=== PATIENT | female | born 1985 | race Caucasian/White ===

== ENCOUNTER → 2018-03-16 11:20 | Outpatient (CLI) | payer MEDICAID, SELFPAY ==
[2018-03-16 14:52] LABS: Chlamydia Trachomatis by PCR Negative (Negative); Neisserai gonorrhoeae by PCR Negative (Negative); Probe Check PASS; Sample Adequacy Control PASS; Specimen Processing Control PASS
== END ==
PROVIDERS: Visit Provider Obstetrics & Gynecology
DX: Z11.3 Encounter for screening for infections with a predominantly sexual mode of transmission (principal)
CPT/HCPCS: 87491; 87591

== ENCOUNTER → 2018-11-08 14:05 | Outpatient (CLI) | payer MEDICAID, SELFPAY ==
[2018-11-08 18:14] LABS: Chlamydia Trachomatis by PCR Negative (Negative); Neisserai gonorrhoeae by PCR Negative (Negative); Probe Check PASS; Sample Adequacy Control PASS; Specimen Processing Control PASS
--- OUTSIDE RECORDS SUMMARY | 2018-12-25 11:05 | XMS RPT_ITS ---
:1985 Author Organization OH[facility] Care Team Providers Name Role Phone KAHLIL RADAMES Attending Unavailable GABBIE MORRISON Referring Unavailable Rosario Bess Attending Unavailable Rosario Bess Attending Unavailable Rosario Bess Attending Unavailable PROBLEMS PROBLEMS DATE TYPE CONDITION / CODE ATTENDING STATUS SOURCE 12/10/2018 Unknown Z11.3 - Encounter Aidan Bess for screening for [facility] infections with a [facility] Repository sexual mode of transmission / Z11.3(ICD-10) PROCEDURES PROCEDURES No Procedure Records FoundRESULTS RESULTS CT/NG [facility] BY PCR Collected: 12/10/2018 Status: F Source: [place] 2:55 PM [facility] REPOSITORY TYPE CODE TESTS RESULT OUT OF RANGE REFERENCE UNITS LAB L8200.2100 Negative Normal Chlam Negative Trac PCR LAB L8200.2200 Negative Normal NG by Negative PCR Performed By: #### [id number] #### Jurgen [facility] [place], [place], [address] CT/NG [facility] BY PCR Collected: 11/08/2018 Status: F Source: [place] 12:13 PM [facility] REPOSITORY TYPE CODE TESTS RESULT OUT OF RANGE REFERENCE UNITS LAB L8200.2100 Negative Normal Chlam Negative Trac PCR LAB L8200.2200 Negative Normal NG by Negative PCR Performed By: #### [id number] #### [facility] [address] [place], [address] CT/NG [facility] BY PCR Collected: 03/16/2018 Status: F Source: [place] 10:45 AM [facility] REPOSITORY TYPE CODE TESTS RESULT OUT OF RANGE REFERENCE UNITS LAB L8200.2100 Negative Normal Chlam Negative Trac PCR LAB L8200.2200 Negative Normal NG by Negative PCR Performed By: #### [id number] #### [facility] [address] [place], [address] PROGRESS Observed: 02/09/2018 Status: COMPLETED Source: [place] 10:23 AM [facility] REPOSITORY HNO ID: [id number] Author: Radames Guillory Service: (none) Author Type: Physician Type: Progress Notes Filed: 02/09/2018 11:41 AM Note Text: [facility] [address], [address] [place], [place] [address] Gabbie Morrison MD [address] [place] [id number] PCP: Gabbie Morrison MD This is a 32 year old year old year old, right handed woman who is here for the evaluation and management of the patient's Headache. CC: Headache HPI: Family history of Headache? yes- mother How old were you when you had the first headache of your entire life? Childhood- once a week Are these headaches similar to your headaches now? yes NOW: Where are you headaches located? Frontal, sometimes one sided (either left or right) What is the quality of the pain? Pressure/throbbing How severe are the headaches on a scale of 1-10? 10/10 Are your headaches worse with activity? No Positional aspect- no How may headaches have you had in the last month? Menstrual related (week before and during menstruation) can have up to 10 headache days during this time Do you have light sensitivity with headaches? yes Do you have sound sensitivity with headaches? yes Do you have nausea with headaches? yes How long do the worst headaches last? 3 days Are headaches side locked? no Do you have any other types of headaches? Tension type headache Sleep: poor- 6 hrs Diet: good Exercise: fair Medical/Psychosocial History she denies history of depression, anxiety. she denies history of abuse. 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 [facility] (Neurosurgery) No aneurysms identified on recent MRA, verified with onsite neuroradiologist Family History: Subarachnoid hemorrhage: Yes, mother, maternal grandmother, and maternal cousin Aneurysms: Yes, mother, maternal grandmother, and maternal cousin Stroke: Yes, maternal grandfather Vascular malformations: None Other neurologic diseases: None Prior Treatments: Triptans: Imitrex and Maxalt (treats 6-8x a month) NSAIDS/Combination Analgesics: Excedrin and ibuprofen (Motrin)- no longer uses OTC for at least a year Anti-HTN: Inderal ( Propranolol), Amlodipine Vit/Supplements: Magnesium Propranolol/Imitrex worked the best thus far Current Medications: Current Outpatient Prescriptions: famotidine (PEPCID) 40 mg tablet Take 40 mg by mouth once daily. Disp: Rfl: 11 rizatriptan (MAXALT FOOD SERVICE MANAGER) 10 mg disintegrating tablet DISSOLVE 1 TABLET ON TOP OF TONGUE NEEDED FOR MIGRAINE MAY REPEAT IN 2 HOURS IF NEEDED Disp: Rfl: 3 fluconazole (DIFLUCAN) 150 mg tablet TAKE ONE TAB BY MOUTH ONCE Disp: Rfl: 0 Levocetirizine 5 mg tablet TAKE 1 TABLET BY MOUTH EVERY DAY IN THE EVENING Disp: Rfl: 11 magnesium oxide (MAG-OX) 400 mg tablet Take 1 tablet by mouth once daily. Disp: Rfl: 11 rizatriptan (MAXALT) 10 mg tablet Take 10 mg by mouth as needed. May repeat in 2 hours if needed Disp: Rfl: Norethindrn A-E Estradiol-Iron (BLISOVI 24 FE) 1 mg-20 mcg (24)/75 mg (4) tab Take 1 tablet by mouth once daily. Disp: Rfl: amLODIPine (NORVASC) 5 mg tablet Take 5 mg by mouth once daily. Disp: Rfl: propranolol ER (INDERAL LA) 60 mg 24 hr capsule TAKE ONE CAPSULE BY MOUTH EVERY DAY Disp: 30 capsule Rfl: 2 SUMAtriptan (IMITREX) 50 mg tablet Take 1 tablet by mouth as needed. Disp: 6 tablet Rfl: 1 hydrocortisone (HYTONE) 2.5 % lotion Apply to affected area(s) of irritated dermatitis rash or postinflam red discolorations selectively once to twice daily as needed and tolerated on face and/or neck, but AVOID eyes/eyelids. Disp: 60 mL Rfl: 3 Etonogestrel-Ethinyl Estradiol (NUVARING) 0.12-0.015 mg/24 hr vaginal ring Use 1 Each vaginally as directed. Insert vaginally and leave in place for 3 consecutive weeks, then remove for 1 week. Disp: Rfl: 0 Benzoyl Peroxide (BENZAC AC WASH) 5 % external wash Cleanse with 5 minute lather of entire acne areas of face, neck, shoulders, back and chest: once to twice daily or alternate days as directed and tolerated. Disp: 226 g Rfl: 6 Clindamycin-Benzoyl Peroxide (DUAC) 1.2 %(1 % base) -5 % GlER Apply thin layer to entire acne area(s) of face every other day (qoday) up to once per day (qday) up to twice per day (bid) as needed for tx of acne as tolerated and directed. Disp: 45 g Rfl: 3 No current facility-administered medications for this visit. . Allergies: ALLERGIES Allergen Reactions - Morphine Itching Family History: Migraine or other headaches in the family: Yes Mother Past Medical History: PAST MEDICAL HISTORY Diagnosis Date - Migraine Past Surgical History PAST SURGICAL HISTORY Procedure Laterality Date - CHG DELIVERY 03/17/2011 - EXCISION OF GANGLION, WRIST 05/13/10 Jurgen Sinclair . Social History: Social History Substance Use Topics - Smoking status: Never Smoker - Smokeless tobacco: Never Used - Alcohol use Yes Comment: rarely ROS: REVIEW OF SYSTEMS GENERAL: No weight loss, malaise or fevers HEENT: Negative for frequent or significant headaches, No changes in hearing or vision, no nose bleeds or other nasal problems NECK: Positive for stiffness, most likely sleep related RESPIRATORY: Negative for cough, hemoptysis, wheezing or shortness of breath CARDIOVASCULAR: Negative for chest pain, leg swelling or palpitations GI: No nausea, vomiting, or diarrhea : Positive for dysuria burning at times- no UTI found MUSCULOSKELETAL: Negative for joint pain or swelling, back pain or muscle pain PSYCH: sleep fragmented ENDOCRINE: Negative for cold or heat intolerance, polyuria, polydipsia and goiter NEURO: No history of syncope, paralysis, seizures or tremors Physical Exam: Vital Signs: BP 130/77 Pulse 66 Ht 157.5 cm (5' 2) Wt 81.6 kg (180 lb) BMI 32.92 kg/m2 General appearance: Obese, well appearing, alert, in no acute distress Neurological: Mental Status: Alert. Affect is normal. Motor: Grossly normal Coordination: Grossly intact Gait: Normal gait Impression: This is Laura Whittington, a 32 year old female with a history of episodic migraine, with disability who presents for management and treatment. Variable diet, poor sleep contributing to headaches. Her examination is essentially normal at this visit. IHS diagnosis based on current history and exam: Migraine: 1.1 Migraine without aura PLAN: HEADACHE EVALUATION LABS: Many labs have been done looking for underlying reasons of headache and are not necessary at this time. IMAGING/MRI: Another part of evaluating chronic headache may include imaging. Currently, no need. However, in the future if indicated, this may be ordered. HEADACHE MANAGEMENT: You are the primary guardian of your health and headache. Keep track of all medications: This includes the reason for use, side effects and benefits. MEDICATION TREATMENT: Headache management is broken down into 2 parts: Prevention ~ medication used to reduce frequency and intensity of headache. These are taken on a daily basis whether you have a headache or not. Start Topamax 25 mg daily, then increase every 1 weeks by 25 mg to a goal of 100 mg daily. Common side effects are tingling, weight loss (decreased appetite), etc. It may cause slowness of thinking for 1-4 days when starting it or increasing the dose. If the slowness of thinking is persistent, then reduce the dose to a level that does not cause persistent slowness in thinking. This medicine helps prevent headaches and reduce their severity. Rescue ~ medication to take when you get a headache or other symptoms such as nausea, etc. Imitrex (sumatriptan) 100 mg as needed for severe headache, may repeat after 2 hours once as tolerated. Do not take more than three days per week. This may cause nausea, sleepiness, Take with nausea medication. May take with Ibuprofen or Aleve, Tylenol, and/or Benadryl. Do not take Ibuprofen/Tylenol/Aleve more than 3 days per week due to rebound headache. NON-MEDICATION TREATMENT: Migraine Lifestyle: We discussed preventative lifestyle changes for prevention of migraine such as a healthy diet, not skipping meals, moderate aerobic exercise (intensity level high enough to raise heart rate and break a sweat, able to talk but not sing the words to a song) 30 minutes per day 3-5 days per week times per week as tolerated, good sleep hygiene, staying well-hydrated with 3-4 Liters (96-128 ounces) of water per day, and identification of migraine triggers. Yoga, massage, and acupuncture are also beneficial for migraine. Total time in minutes spent with patient including headache education/counselling/coordinating care with the patient and /or family 60 minutes. More than 50 % of time spent in counseling and answering specific patient questions. Savanna Wilks RN I have supervised and personally performed the mclaughlin components of the above-noted interview and physical examination. I agree with the note and was personally involved in development of this patient's assessment, plan of management, and follow-up. Radames Guillory MD [facility] CNOV Observed: 02/09/2018 Status: COMPLETED Source: [place] 9:40 AM [facility] REPOSITORY Office Visit (ANNIA) LAURA WHITTINGTON ([id number]) 1985 F Date Time Provider Department 02/09/18 9:40 AM RADAMES GUILLORY During your visit today, we recorded the following information about you: Pulse Blood pressure Weight Height 66/minute 130/77 81.6 kg 1.575 m Radames Guillory MD 02/09/2018 11:41 AM Signed [facility] [address], [address] [place], [place] [address] Gabbie Morrison MD [address] [place] [id number] PCP: Gabbie Morrison MD This is a 32 year old year old year old, right handed woman who is here for the evaluation and management of the patient's Headache. CC: Headache HPI: Family history of Headache? yes- mother How old were you when you had the first headache of your entire life? Childhood- once a week Are these headaches similar to your headaches now? yes NOW: Where are you headaches located? Frontal, sometimes one sided (either left or right) What is the quality of the pain? Pressure/throbbing How severe are the headaches on a scale of 1-10? 10/10 Are your headaches worse with activity? No Positional aspect- no How may headaches have you had in the last month? Menstrual related (week before and during menstruation) can have up to 10 headache days during this time Do you have light sensitivity with headaches? yes Do you have sound sensitivity with headaches? yes Do you have nausea with headaches? yes How long do the worst headaches last? 3 days Are headaches side locked? no Do you have any other types of headaches? Tension type headache Sleep: poor- 6 hrs Diet: good Exercise: fair Medical/Psychosocial History she denies history of depression, anxiety. she denies history of abuse. 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 [facility] (Neurosurgery) No aneurysms identified on recent MRA, verified with onsite neuroradiologist Family History: Subarachnoid hemorrhage: Yes, mother, maternal grandmother, and maternal cousin Aneurysms: Yes, mother, maternal grandmother, and maternal cousin Stroke: Yes, maternal grandfather Vascular malformations: None Other neurologic diseases: None Prior Treatments: Triptans: Imitrex and Maxalt (treats 6-8x a month) NSAIDS/Combination Analgesics: Excedrin and ibuprofen (Motrin)- no longer uses OTC for at least a year Anti-HTN: Inderal ( Propranolol), Amlodipine Vit/Supplements: Magnesium Propranolol/Imitrex worked the best thus far Current Medications: Current Outpatient Prescriptions: famotidine (PEPCID) 40 mg tablet Take 40 mg by mouth once daily. Disp: Rfl: 11 rizatriptan (MAXALT FOOD SERVICE MANAGER) 10 mg disintegrating tablet DISSOLVE 1 TABLET ON TOP OF TONGUE NEEDED FOR MIGRAINE MAY REPEAT IN 2 HOURS IF NEEDED Disp: Rfl: 3 fluconazole (DIFLUCAN) 150 mg tablet TAKE ONE TAB BY MOUTH ONCE Disp: Rfl: 0 Levocetirizine 5 mg tablet TAKE 1 TABLET BY MOUTH EVERY DAY IN THE EVENING Disp: Rfl: 11 magnesium oxide (MAG-OX) 400 mg tablet Take 1 tablet by mouth once daily. Disp: Rfl: 11 rizatriptan (MAXALT) 10 mg tablet Take 10 mg by mouth as needed. May repeat in 2 hours if needed Disp: Rfl: Norethindrn A-E Estradiol-Iron (BLISOVI 24 FE) 1 mg-20 mcg (24)/75 mg (4) tab Take 1 tablet by mouth once daily. Disp: Rfl: amLODIPine (NORVASC) 5 mg tablet Take 5 mg by mouth once daily. Disp: Rfl: propranolol ER (INDERAL LA) 60 mg 24 hr capsule TAKE ONE CAPSULE BY MOUTH EVERY DAY Disp: 30 capsule Rfl: 2 SUMAtriptan (IMITREX) 50 mg tablet Take 1 tablet by mouth as needed. Disp: 6 tablet Rfl: 1 hydrocortisone (HYTONE) 2.5 % lotion Apply to affected area(s) of irritated dermatitis rash or postinflam red discolorations selectively once to twice daily as needed and tolerated on face and/or neck, but AVOID eyes/eyelids. Disp: 60 mL Rfl: 3 Etonogestrel-Ethinyl Estradiol (NUVARING) 0.12-0.015 mg/24 hr vaginal ring Use 1 Each vaginally as directed. Insert vaginally and leave in place for 3 consecutive weeks, then remove for 1 week. Disp: Rfl: 0 Benzoyl Peroxide (BENZAC AC WASH) 5 % external wash Cleanse with 5 minute lather of entire acne areas of face, neck, shoulders, back and chest: once to twice daily or alternate days as directed and tolerated. Disp: 226 g Rfl: 6 Clindamycin-Benzoyl Peroxide (DUAC) 1.2 %(1 % base) -5 % GlER Apply thin layer to entire acne area(s) of face every other day (qoday) up to once per day (qday) up to twice per day (bid) as needed for tx of acne as tolerated and directed. Disp: 45 g Rfl: 3 No current facility-administered medications for this visit. . Allergies: ALLERGIES Allergen Reactions - Morphine Itching Family History: Migraine or other headaches in the family: Yes Mother Past Medical History: PAST MEDICAL HISTORY Diagnosis Date - Migraine Past Surgical History PAST SURGICAL HISTORY Procedure Laterality Date - CHG DELIVERY 03/17/2011 - EXCISION OF GANGLION, WRIST 05/13/10 Jurgen Sinclair . Social History: Social History Substance Use Topics - Smoking status: Never Smoker - Smokeless tobacco: Never Used - Alcohol use Yes Comment: rarely ROS: REVIEW OF SYSTEMS GENERAL: No weight loss, malaise or fevers HEENT: Negative for frequent or significant headaches, No changes in hearing or vision, no nose bleeds or other nasal problems NECK: Positive for stiffness, most likely sleep related RESPIRATORY: Negative for cough, hemoptysis, wheezing or shortness of breath CARDIOVASCULAR: Negative for chest pain, leg swelling or palpitations GI: No nausea, vomiting, or diarrhea : Positive for dysuria burning at times- no UTI found MUSCULOSKELETAL: Negative for joint pain or swelling, back pain or muscle pain PSYCH: sleep fragmented ENDOCRINE: Negative for cold or heat intolerance, polyuria, polydipsia and goiter NEURO: No history of syncope, paralysis, seizures or tremors Physical Exam: Vital Signs: BP 130/77 Pulse 66 Ht 157.5 cm (5' 2ANDquot;) Wt 81.6 kg (180 lb) BMI 32.92 kg/m2 General appearance: Obese, well appearing, alert, in no acute distress Neurological: Mental Status: Alert. Affect is normal. Motor: Grossly normal Coordination: Grossly intact Gait: Normal gait Impression: This is Laura Whittington, a 32 year old female with a history of episodic migraine, with disability who presents for management and treatment. Variable diet, poor sleep contributing to headaches. Her examination is essentially normal at this visit. IHS diagnosis based on current history and exam: Migraine: 1.1 Migraine without aura PLAN: HEADACHE EVALUATION LABS: Many labs have been done looking for underlying reasons of headache and are not necessary at this time. IMAGING/MRI: Another part of evaluating chronic headache may include imaging. Currently, no need. However, in the future if indicated, this may be ordered. HEADACHE MANAGEMENT: You are the primary guardian of your health and headache. Keep track of all medications: This includes the reason for use, side effects and benefits. MEDICATION TREATMENT: Headache management is broken down into 2 parts: Prevention ~ medication used to reduce frequency and intensity of headache. These are taken on a daily basis whether you have a headache or not. Start Topamax 25 mg daily, then increase every 1 weeks by 25 mg to a goal of 100 mg daily. Common side effects are tingling, weight loss (decreased appetite), etc. It may cause slowness of thinking for 1-4 days when starting it or increasing the dose. If the slowness of thinking is persistent, then reduce the dose to a level that does not cause persistent slowness in thinking. This medicine helps prevent headaches and reduce their severity. Rescue ~ medication to take when you get a headache or other symptoms such as nausea, etc. Imitrex (sumatriptan) 100 mg as needed for severe headache, may repeat after 2 hours once as tolerated. Do not take more than three days per week. This may cause nausea, sleepiness, Take with nausea medication. May take with Ibuprofen or Aleve, Tylenol, and/or Benadryl. Do not take Ibuprofen/Tylenol/Aleve more than 3 days per week due to rebound headache. NON-MEDICATION TREATMENT: Migraine Lifestyle: We discussed preventative lifestyle changes for prevention of migraine such as a healthy diet, not skipping meals, moderate aerobic exercise (intensity level high enough to raise heart rate and break a sweat, able to talk but not sing the words to a song) 30 minutes per day 3-5 days per week times per week as tolerated, good sleep hygiene, staying well-hydrated with 3-4 Liters (96-128 ounces) of water per day, and identification of migraine triggers. Yoga, massage, and acupuncture are also beneficial for migraine. Total time in minutes spent with patient including headache education/counselling/coordinating care with the patient and /or family 60 minutes. More than 50 % of time spent in counseling and answering specific patient questions. Savanna Wilks RN I have supervised and personally performed the mclaughlin components of the above-noted interview and physical examination. I agree with the note and was personally involved in development of this patient's assessment, plan of management, and follow-up. Radames Guillory MD [facility] Radames Guillory MD 02/09/2018 11:31 AM Signed PLAN: HEADACHE EVALUATION LABS: Many labs have been done looking for underlying reasons of headache and are not necessary at this time. IMAGING/MRI: Another part of evaluating chronic headache may include imaging. Currently, no need. However, in the future if indicated, this may be ordered. HEADACHE MANAGEMENT: You are the primary guardian of your health and headache. Keep track of all medications: This includes the reason for use, side effects and benefits. MEDICATION TREATMENT: Headache management is broken down into 2 parts: Prevention ~ medication used to reduce frequency and intensity of headache. These are taken on a daily basis whether you have a headache or not. Start Topamax 25 mg daily, then increase every 1 weeks by 25 mg to a goal of 100 mg daily. Common side effects are tingling, weight loss (decreased appetite), etc. It may cause slowness of thinking for 1-4 days when starting it or increasing the dose. If the slowness of thinking is persistent, then reduce the dose to a level that does not cause persistent slowness in thinking. This medicine helps prevent headaches and reduce their severity. Rescue ~ medication to take when you get a headache or other symptoms such as nausea, etc. Imitrex (sumatriptan) 100 mg as needed for severe headache, may repeat after 2 hours once as tolerated. Do not take more than three days per week. This may cause nausea, sleepiness, Take with nausea medication. May take with Ibuprofen or Aleve, Tylenol, and/or Benadryl. Do not take Ibuprofen/Tylenol/Aleve more than 3 days per week due to rebound headache. NON-MEDICATION TREATMENT: Exercise is a critical part of headache prevention. Goal is to get 20-30 minutes of mild aerobic exercise such as walking, swimming, or yoga, every day. Exercise should be treated like a medication, and thus implemented daily. For the first few weeks exercise may make headaches worse, but it is important to continue in order to get the intermediate accountant preventive benefits. If needed, start with 5 minute intervals every hour while awake. Simple and sustainable behavior changes are longer lasting. Make a plan and commit. Flexibility and core are essential as well: Yoga DVD's are inexpensive and you can do this at home. AM Yoga with Eris Ann. ANDamp; Restorative Yoga Practice: Gentle Beginners by Kimbelry Henley are a few to consider. Mindful Relaxation: Hourly chime on your smart phone or desktop/computer to help reset posture and breathing. Remember to pull your shoulder blades together and hold for 5 seconds. Repeat 5 times. Http://[employer] is a free website that provides teaching videos on relaxation. Also, there are many apps that can be downloaded for ?mindful? relaxation. An marsha called YOGA NIDRA will help walk you through mindfulness. DIET: Frequent meals with protein 5-10 gm every 3 hours and carbohydrate will help with keeping blood sugar and energy/ fuel supply at appropriate levels. (Example: 5 grams of protein: 1 cheese stick, 20 almonds, 1 hard boiled egg. 1 ounce beef jerky is 10 grams. There are 14 grams of protein in 1/2 cup cottage cheese and so on.) HYDRATION: A minimum of 72-96 ounces of water and or non-carbonated/caffeinated beverage daily. SLEEP HYGIENE: 8 hours in bed overnight. No other activity in bed except sleep and sex. No daytime napping. Avoid large meals late in evening. CAFFEINE is a headache trigger (as well as a short term treatment) - try to even out the quantity in the day and then slowly but progressively reduce - use decaffeinated coffee/tea or soda as substitute. Max 12 oz daily. If on larger quantity; recommended taper is 4 ounces every 4 days to reduce risk of withdrawal headache. DIARY/TRIGGERS: In order to track effectiveness of treatment, a diary is an essential part of your plan of care. Identification of triggers is also mclaughlin in reduction of frequency and intensity of headache pain. Many electronic apps are available for smart phones and tablets. Example of diary below. THERACANE: is a helpful tool for pain and muscle tenderness. It can be purchased online (NutraMed, [employer]). It may help to use an Ice Gel pack to local spot for 5 minutes, followed by gentle pressure with theracane. Follow-up with Warm/Hot Moist towel. Cover with dry towel and stretch. PHOTOPHOBIA/Light Sensitivity: Photophobia treatment involves a balance between desensitization and reduction in overly strong input. Use dark polarized glasses outside, but not inside. Avoid bright or fluorescent light, but do not dim environment to the point that going into a normally lit room hurts. Consider FL-41 tint lenses, which reduce the most irritating wavelengths without blocking too much light. These can be obtained at [facility] or [employer] Examples of... Psychologic Factor: ? Emotional/Upset family or friends ? Emotional/Upset occupation ? Business reversal/success ? Anticipation anxiety ? Crisis-serious ? Post-crisis period ? New job/position Physical Factor: ? Vacation Day ? Weekend ? Strenuous Exercise ? High Altitude Location ? New Move ? Menstrual Day ? Physical Illness ? Oversleep/Not enough sleep ? Weather Food: ? Ripened Cheese ? Chocolate ? Fermented foods ? Nuts/Peanut Butter ? Onions ? Sprague Fruits ? Pork ? Nutrasweet ? Vinegar ? Baked Yeast/Bread ? MSG ? Bananas ? Sausage Referring Provider: GABBIE MORRISON [[id number]] Allergies As of Date: 02/09/2018 Noted Allergy Reaction MORPHINE 02/06/2017 9 - Itching Date Reviewed: 02/06/2017 Reviewed by: Annie Kidd Ma - Fully Assessed Reason for Visit: New Patient [172] Primary Visit Diagnosis:Migraine without aura and without status migrainosus, not intractable [G43.009] Order(s):SUMAtriptan (IMITREX) 100 mg tabletTake 1 tablet by mouth as needed. START AT ONSET OF HEADACHE. MAY REPEAT DOSE AFTER 2 HOURS.Disp: 12 tabletRfl: 3 topiramate (TOPAMAX) 25 mg tabletWk1: 25 mg qhs (1 tab), wk2: 50 mg qhs (2 tab), wk3: 75 mg qhs (3 tab), wk4 100 mg qhs (4 tabs)Disp: 70 tabletRfl: 0 Prescriptions as of 02/09/2018 Sig: FAMOTIDINE 40 MG TABLET Take 40 mg by mouth once herman* RIZATRIPTAN 10 MG DISINTEGRAT* DISSOLVE 1 TABLET ON TOP OF T* LEVOCETIRIZINE 5 MG TABLET TAKE 1 TABLET BY MOUTH EVERY * SUMATRIPTAN 100 MG TABLET Take 1 tablet by mouth as nee* TOPIRAMATE 25 MG TABLET Wk1: 25 mg qhs (1 tab), wk2: * RIZATRIPTAN 10 MG TABLET Take 10 mg by mouth as needed* NORETHINDRONE 1 MG-ETHINYL ES* Take 1 tablet by mouth once d* Medication notes this encounter FAMOTIDINE 40 MG TABLET >> Linda Steen Ma 02/09/2018 10:17 AM >> LINDA STEEN MA MonFeb 09, 2018 10:17 AM Received from: External Pharmacy Received Sig: TAKE 1 TABLET BY MOUTH EVERY DAY RIZATRIPTAN 10 MG DISINTEGRATING TABLET >> Linda Steen Ma 02/09/2018 10:17 AM >> LINDA STEEN MA MonFeb 09, 2018 10:17 AM Received from: External Pharmacy LEVOCETIRIZINE 5 MG TABLET >> Linda Steen Ma 02/09/2018 10:17 AM >> ALVARO POST LINDA MonFeb 09, 2018 10:17 AM Received from: External Pharmacy >> Linda Steen Ma 02/09/2018 10:19 AM >> LINDA STEEN MA MonFeb 09, 2018 10:19 AM Not taking FLUCONAZOLE 150 MG TABLET >> Linda Steen Ma 02/09/2018 10:17 AM >> ALVARO POST LINDA MonFeb 09, 2018 10:17 AM Received from: External Pharmacy >> Linda Steen Ma 02/09/2018 10:18 AM >> LINDA STEEN MA MonFeb 09, 2018 10:18 AM Not taking MAGNESIUM OXIDE 400 MG TABLET >> Linda Steen Ma 02/09/2018 10:17 AM >> LINDA STEEN MA MonFeb 09, 2018 10:17 AM Received from: External Pharmacy Received Sig: TAKE 1 TABLET BY MOUTH EVERY DAY >> Linda Steen Ma 02/09/2018 10:18 AM >> LINDA STEEN MA MonFeb 09, 2018 10:18 AM Not taking AMLODIPINE 5 MG TABLET >> Linda Steen Ma 02/09/2018 10:17 AM >> LINDA STEEN MA MonFeb 09, 2018 10:17 AM Not taking Problem List As Of Date 02/09/2018 Noted Resolved Migraine [G43.909] INVALID FOR* More... Contraception [Z30.9] INVALID FOR* Acne Vulgaris: Inflammatory Grade III: Face [L7*INVALID FOR* Postinflammatory skin changes [R23.4] INVALID FOR* Acne Scars [L90.5] INVALID FOR* Irritant dermatitis (potential from acne meds o*INVALID FOR* Antibiotic-induced yeast infection [B37.9, T36.*INVALID FOR* Yeast infection of the vagina [B37.3] INVALID FOR* Other instructions from your clinician: PLAN: HEADACHE EVALUATION LABS: Many labs have been done looking for underlying reasons of headache and are not necessary at this time. IMAGING/MRI: Another part of evaluating chronic headache may include imaging. Currently, no need. However, in the future if indicated, this may be ordered. HEADACHE MANAGEMENT: You are the primary guardian of your health and headache. Keep track of all medications: This includes the reason for use, side effects and benefits. MEDICATION TREATMENT: Headache management is broken down into 2 parts: Prevention ~ medication used to reduce frequency and intensity of headache. These are taken on a daily basis whether you have a headache or not. Start Topamax 25 mg daily, then increase every 1 weeks by 25 mg to a goal of 100 mg daily. Common side effects are tingling, weight loss (decreased appetite), etc. It may cause slowness of thinking for 1-4 days when starting it or increasing the dose. If the slowness of thinking is persistent, then reduce the dose to a level that does not cause persistent slowness in thinking. This medicine helps prevent headaches and reduce their severity. Rescue ~ medication to take when you get a headache or other symptoms such as nausea, etc. Imitrex (sumatriptan) 100 mg as needed for severe headache, may repeat after 2 hours once as tolerated. Do not take more than three days per week. This may cause nausea, sleepiness, Take with nausea medication. May take with Ibuprofen or Aleve, Tylenol, and/or Benadryl. Do not take Ibuprofen/Tylenol/Aleve more than 3 days per week due to rebound headache. NON-MEDICATION TREATMENT: Exercise is a critical part of headache prevention. Goal is to get 20-30 minutes of mild aerobic exercise such as walking, swimming, or yoga, every day. Exercise should be treated like a medication, and thus implemented daily. For the first few weeks exercise may make headaches worse, but it is important to continue in order to get the fdc preventive benefits. If needed, start with 5 minute intervals every hour while awake. Simple and sustainable behavior changes are longer lasting. Make a plan and commit. Flexibility and core are essential as well: Yoga DVD's are inexpensive and you can do this at home. AM Yoga with Eris Ann. AND Restorative Yoga Practice: Gentle Beginners by Kimberly Henley are a few to consider. Mindful Relaxation: Hourly chime on your smart phone or desktop/computer to help reset posture and breathing. Remember to pull your shoulder blades together and hold for 5 seconds. Repeat 5 times. Http://[employer] is a free website that provides teaching videos on relaxation. Also, there are many apps that can be downloaded for ?mindful? relaxation. An marsha called [employer] will help walk you through mindfulness. DIET: Frequent meals with protein 5-10 gm every 3 hours and carbohydrate will help with keeping blood sugar and energy/ fuel supply at appropriate levels. (Example: 5 grams of protein: 1 cheese stick, 20 almonds, 1 hard boiled egg. 1 ounce beef jerky is 10 grams. There are 14 grams of protein in 1/2 cup cottage cheese and so on.) HYDRATION: A minimum of 72-96 ounces of water and or non-carbonated/caffeinated beverage daily. SLEEP HYGIENE: 8 hours in bed overnight. No other activity in bed except sleep and sex. No daytime napping. Avoid large meals late in evening. CAFFEINE is a headache trigger (as well as a short term treatment) - try to even out the quantity in the day and then slowly but progressively reduce - use decaffeinated coffee/tea or soda as substitute. Max 12 oz daily. If on larger quantity; recommended taper is 4 ounces every 4 days to reduce risk of withdrawal headache. DIARY/TRIGGERS: In order to track effectiveness of treatment, a diary is an essential part of your plan of care. Identification of triggers is also mclaughlin in reduction of frequency and intensity of headache pain. Many electronic apps are available for smart phones and tablets. Example of diary below. THERACANE: is a helpful tool for pain and muscle tenderness. It can be purchased online (NutraMed, etc). It may help to use an Ice Gel pack to local spot for 5 minutes, followed by gentle pressure with theracane. Follow-up with Warm/Hot Moist towel. Cover with dry towel and stretch. PHOTOPHOBIA/Light Sensitivity: Photophobia treatment involves a balance between desensitization and reduction in overly strong input. Use dark polarized glasses outside, but not inside. Avoid bright or fluorescent light, but do not dim environment to the point that going into a normally lit room hurts. Consider FL-41 tint lenses, which reduce the most irritating wavelengths without blocking too much light. These can be obtained at [employer] or [employer] Examples of... Psychologic Factor: ? Emotional/Upset family or friends ? Emotional/Upset occupation ? Business reversal/success ? Anticipation anxiety ? Crisis-serious ? Post-crisis period ? New job/position Physical Factor: ? Vacation Day ? Weekend ? Strenuous Exercise ? High Altitude Location ? New Move ? Menstrual Day ? Physical Illness ? Oversleep/Not enough sleep ? Weather Food: ? Ripened Cheese ? Chocolate ? Fermented foods ? Nuts/Peanut Butter ? Onions ? Sprague Fruits ? Pork ? Nutrasweet ? Vinegar ? Baked Yeast/Bread ? MSG ? Bananas ? Sausage Prescriptions ordered this encounter Disp Refills Start End SUMATRIPTAN 100 MG TABLET 12 t* 3 02/09/2018 Route: ORAL Sig: Take 1 tablet by mouth as needed. START AT ONSET OF HEADACHE. MAY REPEAT DOSE AFTER 2 HOURS. TOPIRAMATE 25 MG TABLET 70 t* 0 02/09/2018 Sig: Wk1: 25 mg qhs (1 tab), wk2: 50 mg qhs (2 tab), wk3: 75 mg qhs (3 tab), wk4 100 mg qhs (4 tabs) Medications Discontinued During This Encounter amLODIPine (NORVASC) 5 mg tablet 02/09/2018 Class: Historical Med Route: ORAL Sig: Take 5 mg by mouth once daily. Disc: Erroneous entry Benzoyl Peroxide (BENZAC AC WASH) 5 * 226 g 6 09/12/2013 02/09/2018 Class: Print RX Sig: Cleanse with 5 minute lather of entire acne areas of face, neck, shoulders, back and chest: once to twice daily or alternate days as directed and tolerated. Disc: Erroneous entry Clindamycin-Benzoyl Peroxide (DUAC) * 45 g 3 09/12/2013 02/09/2018 Class: Print RX Sig: Apply thin layer to entire acne area(s) of face every other day (qoday) up to once per day (qday) up to twice per day (bid) as needed for tx of acne as tolerated and directed. Disc: Erroneous entry Etonogestrel-Ethinyl Estradiol (NUVA* 0 01/30/2015 02/09/2018 Class: Historical Med Route: VAGINAL Sig: Use 1 Each vaginally as directed. Insert vaginally and leave in place for 3 consecutive weeks, then remove for 1 week. Disc: Erroneous entry fluconazole (DIFLUCAN) 150 mg tablet 0 01/15/2018 02/09/2018 Class: Historical Med Sig: TAKE ONE TAB BY MOUTH ONCE Disc: Erroneous entry hydrocortisone (HYTONE) 2.5 % lotion 60 mL 3 01/30/2015 02/09/2018 Class: Print RX Sig: Apply to affected area(s) of irritated dermatitis rash or postinflam red discolorations selectively once to twice daily as needed and tolerated on face and/or neck, but AVOID eyes/eyelids. Disc: Erroneous entry SUMAtriptan (IMITREX) 50 mg tablet 6 ta* 1 04/27/2015 02/09/2018 Route: ORAL Sig: Take 1 tablet by mouth as needed. Disc: Erroneous entry propranolol ER (INDERAL LA) 60 mg 24* 30 c* 2 11/19/2015 02/09/2018 Sig: TAKE ONE CAPSULE BY MOUTH EVERY DAY Disc: Erroneous entry magnesium oxide (MAG-OX) 400 mg tabl* 11 2017 02/09/2018 Class: Historical Med Route: ORAL Sig: Take 1 tablet by mouth once daily. Disc: Erroneous entry Encounter Status:Closed by RADAMES GUILLORY MD on 02/09/18 ALLERGIES ALLERGIES DATE TYPE / CODE NAME / CODE REACTION SEVERITY SOURCE 02/06/2017 DRUG MORPHINE ITCHING [facility] INGREDI/[address] [place] [address] [id number](SNOM Repository ED CT) 11/23/2015 Drug morphine/[id number] Itching Unknown [facility] Allergy/416 1545(RXNORM) Hospital [id number](SNOM Repository ED CT) ENCOUNTERS ENCOUNTERS ADMIT/DISCHARGE ACCOUNT ADMITTING ENCOUNTER LOCATION SOURCE NUMBER CLASS 12/10/2018 [id number] [facility] ing:LABSPEC Repository 11/08/2018 [id number] [facility] ing:LABSPEC Repository 03/16/2018 [id number] [facility] ing:LABSPEC Repository 02/09/2018/02/13/[id number] Repository PAYERS PAYERS ENCOUNTER GUARANTOR PAYER SUBSCRIBER SOURCE 12/10/2018 [facility]:GABINO Dumont: [facility] [place]: [id number] [id number] Repository 05665Xwp: ([phone]) Date:2018-12-10P O [phone] () [address]ATTN: [place] [address]SV: 12/10/2018 Secondary NOT GIVENUNK Jurgen Insurance:SELF PAY [facility] Number: Effective Repository Date:2018-12-10 11/08/2018 Laura Primary Lauradoreen [place]54 Insurance:CARESOURCEP ScooterDOB: [facility] Number: [id number], [place] [id number] Repository 78680Wsr: ([phone]) Date:2018-11-08P O [phone] () [address]ATTN: [place] [address]UI: 11/08/2018 Secondary NOT GIVENUNK Jurgen Insurance:SELF PAY [facility] Number: Effective Repository Date:2018-11-08 03/16/2018 [facility] Primary Laura Jurgen Fonsecaer54 Insurance:CAR[facility]OURCKAYY [facility] Number: [id number], [place] [id number] Repository [address]Ypy: ([phone]) Date:2018-03-16P O [phone] () [address]ATTN: [place] [address]XV: 03/16/2018 Secondary NOT GIVENUNK [place] Insurance:SELF PAY [facility] Number: Effective Repository Date:2018-03-16
== END ==
PROVIDERS: Visit Provider Obstetrics & Gynecology
DX: Z11.3 Encounter for screening for infections with a predominantly sexual mode of transmission (principal); Z86.19 Personal history of other infectious and parasitic diseases
CPT/HCPCS: 87491; 87591

== ENCOUNTER → 2018-12-10 15:15 | Outpatient (CLI) | payer MEDICAID, SELFPAY ==
[2015-11-25 11:45] VITALS: BMI 37.5
[2018-12-10 19:19] LABS: Chlamydia Trachomatis by PCR Negative (Negative); Neisserai gonorrhoeae by PCR Negative (Negative); Probe Check PASS; Sample Adequacy Control PASS; Specimen Processing Control PASS
== END ==
PROVIDERS: Visit Provider Obstetrics & Gynecology
DX: Z11.3 Encounter for screening for infections with a predominantly sexual mode of transmission (principal)
CPT/HCPCS: 87491; 87591

== ENCOUNTER → 2019-01-15 09:32 | Outpatient (CLI) | payer MEDICAID, SELFPAY ==
[2019-01-15 13:15] LABS: Chlamydia Trachomatis by PCR Negative (Negative); Neisserai gonorrhoeae by PCR Negative (Negative); Probe Check PASS; Sample Adequacy Control PASS; Specimen Processing Control PASS
[2019-01-18 12:32] LABS: HPV APTIMA, High Risk Positive (Negative)
== END ==
PROVIDERS: Visit Provider Obstetrics & Gynecology
DX: Z11.3 Encounter for screening for infections with a predominantly sexual mode of transmission (principal); Z12.4 Encounter for screening for malignant neoplasm of cervix
CPT/HCPCS: 87491; 87591; 87624; 88175; G0145

== ENCOUNTER → 2019-01-29 14:45 | Outpatient (CLI) | payer MEDICAID, SELFPAY ==
[2015-11-25 11:45] VITALS: BMI 37.5
--- NOTE | 2019-01-29 | IMM_PTH ---
PATIENT: LAURA WHITESIDE LOC: [facility] U#:[id number] AGE/SX: 39/F ROOM: RE01/29/[address]: Dr. Rosario Benton MD : 1985 BED: DIS: SPEC #: [id number] RECD: 01/31/19 11:45 STATUS: KERRY REAlec #: [id number] LEONARD: 01/29/19 00:[address]: Rosario Montoya DEPT: IMMUNOHISTOCHEMISTRY RECD BY: Abi Anderson Tissues: A - Uterine cervix, NOS B - Endocervical Procedures: p16 (initial) KI-67 (add) PHYSICIAN & [place] [address] SPECIMEN INFORMATION: Tissue Source: A - Cervix at 6 o'clock, biopsy, B - ECC Clinical Info: Abnormal pap HR-HPV Specimen Number: [id number] A & B CPT code: 62741 x2, 37336 x2 METHODOLOGY: Deparaffinized sections of prefer/formalin-fixed tissue or PAP/DQ stained slides are incubated with monoclonal/polyclonal antibodies/oligonucleotide probes. Localization is made via biotin free immunoperoxidase method. Appropriate controls are performed and reacted as expected. Results on target cell population are indicated in the following table: RESULTS: ANTIBODY / CLONE RESULT Block A P16 (E6H4) positive, focal patchy Ki-67 (30-9) positive, low Block B P16 (E6H4) positive (block-like) Ki-67 (30-9) positive, low These tests were developed and their performance characteristics determined by [facility]. They may not have been cleared or approved by the U.S. Food and Drug Administration. The FDA has determined that such clearance or approval is not necessary. INTERPRETATION: A. Cervix at 6 o'clock, biopsy: Consistent with mild squamous dysplasia, THEODORE I with HPV change. B. Endocervix, curettings: Detached fragment of squamous mucosa consistent with moderate dysplasia, THEODORE II (HGSIL). AM:antoine 02/01/19
--- NOTE | 2019-01-29 14:40 | CER_PTH ---
PAT[facility]: [facility]IDE [id number] AGE/SX: 39/F ROOM: RE01/29/[address]: Dr. Rosario Benton MD : 1985 BED: DIS: SPEC #: [id number] RECD: 01/29/19 17:23 STATUS: KERRY KEVEN #: [id number] LEONARD: 01/29/19 14:[address]: Rosario Montoya DEPT: SURGICAL PATHOLOGY RECD BY: Miguel Rivera Tissues: Uterine cervix, NOS Procedures: Surgery Specimen Level IV HEADER OPERATION: Colposcopy PRE-OP DIAGNOSIS: HR-HPV, abnormal pap 01/15/19, LMP 01/25/19 TISSUE SUBMITTED: A - Cervical biopsy 6 o'clock, B - ECC MICROSCOPIC DIAGNOSIS A. Cervix at 6 o'clock, biopsy: Mild squamous dysplasia, THEODORE I (LGSL). Changes consistent with HPV cytopathic effect. See comment. B. Endocervix, curettings: Scant strips of benign superficial endocervix. Detached dysplastic squamous epithelium consistent with moderate dysplasia, THEODORE II (HSIL). See comment. AM:antoine 01/31/19 COMMENT A & B. Results from immunohistochemistry ([id number]) for surrogate HPV marker (p16) will be reported separately. MICROSCOPIC DESCRIPTION Slides are reviewed. GROSS DESCRIPTION A - Received in fixative is one container labeled with the patient's name and designated cervical biopsy 6 o'clock. The specimen consists of multiple irregular fragments of light reynolds soft tissue that in aggregate measure 0.2 x 0.1 x 0.1 cm. The specimen is totally submitted in one cassette. B - Received in fixative is one container labeled with the patient's name and designated ECC. The specimen consists of multiple irregular fragments of light reynolds soft tissue that in aggregate measure 2 x 0.5 x <0.1 cm. The specimen is totally submitted in one cassette. / AM:antoine 01/30/19 TC:3 CPT: 15110 x2
== END ==
PROVIDERS: Referring Provider Obstetrics & Gynecology; Visit Provider Obstetrics & Gynecology
DX: R87.810 Cervical high risk human papillomavirus (HPV) DNA test positive (principal)
CPT/HCPCS: 88305; 88341; 88342

== ENCOUNTER → 2019-02-14 09:01 | Outpatient (CLI) | payer MEDICAID, SELFPAY ==
[2015-11-25 11:45] VITALS: BMI 37.5
--- NOTE | 2019-02-14 09:05 | BI_ITS ---
MAMMOGRAPHY - BILATERAL DIAGNOSTIC REASON FOR EXAM: Female, 33 years old. BILAT DX FOR RT LUMP - BASELINE EXAM PERTINENT HISTORY: NO PREV SURG'S - RT UOQ LUMP X 2 MONTHS TECHNIQUE: Digital bilateral breast kalpana (3D mammographic acquisition) in the CC and MLO projections. 2-D mediolateral oblique (MLO) and craniocaudad (CC) views of both breasts were obtained. CAD: Full Field Digital Mammography with Computer Added Detection was performed. COMPARISON: None. FINDINGS: Breast Composition: The breasts are extremely dense, which lowers the sensitivity of mammography. There are no dominant masses or suspicious calcifications. No other significant abnormalities are identified. BI/DIAG MAMM W/CAD, BILAT IMPRESSION: Further ultrasonographic evaluation recommended, as described above. (I) ASSESSMENT CATEGORY: BIRADS Category 0: Incomplete. Need additional imaging evaluation. A letter regarding these results will be sent to the patient by the facility within 30 days. Approximately 10% of breast cancers are not detected by mammography. A normal mammogram should not delay biopsy of a clinically suspicious abnormality. Electronically Signed: Tejinder Tovar, at 16:54 EDT Tel , Service support ,
--- NOTE | 2019-02-14 09:06 | US_ITS ---
STUDY: ULTRASOUND BREAST - RIGHT REASON FOR EXAM: Female, 33 years old. Mass in the upper outer quadrant of the right breast. TECHNIQUE: Axial and longitudinal images of the RIGHT breast were performed with a high resolution ultrasound transducer. COMPARISON: None. FINDINGS: RIGHT Breast: There is a lesion #1 in the upper Outer quadrant. The lesion measures 0.7 x 0.6 x 0.3 cm in size. Clock notation: 12 o'clock position. Distance from nipple: 1 cm. Posterior Enhancement: Yes. Posterior Shadowing: None. Margins: Sharp and smooth. Echogenicity: Anechoic. Compression effect on Shape: No change. US/Breast Limited Unilateral IMPRESSION: Benign cyst. ASSESSMENT CATEGORY: BIRADS Category 2: Benign. A letter regarding these results will be sent to the patient by the facility within 30 days. Electronically Signed: Tejinder Tovar, at 12:42 EDT Tel , Service support ,
== END ==
PROVIDERS: Family Provider Family Medicine; PCP Family Medicine; Referring Provider Obstetrics & Gynecology; Visit Provider Obstetrics & Gynecology
DX: N63.10 Unspecified lump in the right breast, unspecified quadrant (principal)
CPT/HCPCS: 76642; 77062; 77066; G0279

== ENCOUNTER 2019-02-20 05:56 | Day surgery (SDC) | payer MEDICAID, SELFPAY ==
[2015-11-25 11:45] VITALS: BMI 37.5
[2019-02-19 17:19] LABS: Hematocrit 37.5 % (37-47); Hemoglobin 12.1 g/dl (12.0-15.0); Mean Corp Hgb Conc 32.3 g/gl (32-36); Mean Corpuscular Hgb 29.3 pg (27.0-32.0); Mean Corpuscular Volume 90.8 fL (81-99); Mean Platelet Vol. 10.5 fl (6.2-12.0); Platelet Count 287 K/mm3 (150-450); RBC Distribution Width CV 13.6 % (11.6-14.6); RBC Distribution Width SD 44.6 fl (35.1-43.9); Red Blood Count 4.13 M/mm3 (4.2-5.4); Scan Indicated on CBC? Y/N NO; White Blood Count 6.6 K/mm3 (4.4-11.0)
[2019-02-19 17:22] LABS: International Normalized Ratio 1.1; Partial Thromboplast Time 27.8 Seconds (24.1-36.2); Prothrombin Time (Protime)PT. 13.8 SECONDS (11.7-14.9)
--- NOTE | 2019-02-19 17:42 | HP.PCM_ITS ---
- Problem List (1) Moderate cervical dysplasia Status: Acute History and Physical Date of Admission: 02/20/19 Surgical History and Physical Date: 02/19/2019 Name: SADIE HELMS Age: 33 Date of : 1985 Sadie Helms, a 33 year old female 3 1 0 0 4, presents for LEEP with top hat, ECC on February 20, 2019 at 7:30. Sadie is here today for her pre op appointment. Patient is scheduled for LEEP with Top hat 02/20/2019. Patient has h/o abnormal pap's. Patient states that she has already had her PAT phone call from [facility]. She will plan to go for labs after appointment in this office today. Consent reviewed with patient and signed. Patient states that she did start with menses last evening she has the ParaGard for control. jlb as above. Recent PAP with [facility] in 12/2018. 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 Plan for LEEP with top hat and ECC. [facility] MEDICATIONS HISTORY: Current medications prescribed by our practice are: 1. ParaGard T 380A 380 square mm intrauterine device, As Directed Patient is also takin. Imitrex 50 mg tablet 2. Topamax 100 mg tablet 3. Prilosec OTC 20 mg tablet,delayed release, 1 PO QD ALLERGIES: NKDA, Morphine, Rash and itching Infections - Chicken pox Illnesses - none Accidents - None Hospitalizations - Childbirth and see surgery Review of Systems: GENERAL - Denies fever, or chills SKIN - Denies skin changes EYES - wears eye glasses EARS - Denies difficulty hearing NOSE - Denies nasal congestion or bleeding MOUTH - Denies sore throat or difficulty swallowing NECK - Denies pain or swelling RESPIRATORY - Denies shortness of breath or wheezing CARDIOVASCULAR - Denies palpitations or chest pain GASTROINTESTINAL - Denies nausea, vomiting, diarrhea, constipation GENITOURINARY - Denies dysuria, frequency of urination, incontinence of urine MUSCULOSKELETAL - Denies joint or muscle pain NEUROLOGICAL - Denies localized numbness or weakness PSYCHIATRIC - Denies depression or anxiety ENDOCRINE - Denies heat or cold intolerance, weight loss or gain HEMATO-IMMUNOLOGIC - Denies excesive bleeding with cuts SOCIAL HISTORY: Alcohol Use - denies drinking Smoking - denies smoking Diet - balanced Diet Lifestyle - single Exercise - minimal Seat Belt Use - always Employer - [employer] 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 Maternal Grandmother: Brain Aneurysm. Paternal Grandmother: Leukemia. MENSTRUAL HISTORY: LMP Known?- DefiniteAmount/Duration - 6 days, Regularity - Regular, Frequency - monthly days, LMP - 02/18/19, Age Onset Menarche - 16 PAST PREGNANCIES: Total Pregnancies - 4; Full Term Pregnancies - 3; Premature - 1; Abortions, Induced - 0; Abortions, Spontaneous - 0; Ectopics - 0; Multiple Births - 0; Living Children - 4 SURGICAL HISTORY: 1. ganglion cyst removed from rt wrist 05/06 ; - 2. 03/17/2011 ; - oligio, 34 wks 3. 11/25/2015 ; Rosario Benton MD - PHYSICAL EXAM BP- 126/74 Sitting, Right arm, regular cuff Temp- 98.1 Taken Orally Weight- 171.30400 lbs Height- 63 inch BMI:30.35 CONSTITUTIONAL - NAD, well nourished, and well developed SKIN - No rash, lesions, or ulcers HEENT - normocephalic, atraumatic, sclerae anicteric LUNGS - CTA x2 without wheezes, crackles or rales CARDIAC - Regular rate and rhythm without rubs, murmurs, or gallops NEUROLOGICAL - normal gait, normal balance, normal motor PSYCHIATRIC - A and O to time, place, person, mood and affect ASSESSMENT/PLAN: 1. Cervical High Risk Human Papillomavirus (hpv) DNA Test Positive and Moderate Cervical Dysplasia Reviewed with patient colposcopic bx results and excisional procedure indications Discussed LEEP benefits, risks including potential increased risk for PTL, cervical shortening with second trimester delivery - role of cervical surv eillance in future reviewed. Discussed CKC as alternative however potential increased risk for PTL > LEEP. However, I do not recommend this given patient considering future . Consents signed and reviewed. Preop packet given and reviewed. [facility] Patient given opportunity to ask questions and questions answered to her satisfaction. Preop labs pending
[2019-02-20] VITALS (8 sets, daily range): BP systolic 122–137; BP diastolic 71–85; PULSE 88–108; RESP 16; TEMP 36.5–36.9; O2SAT 99–100; BMI 31.1
--- NOTE | 2019-02-20 | IMM_PTH ---
PATIENT: LAURA WHIT[place]IDE [place] [facility] [id number] AGE/SX: 33/F ROOM: RE02/20/[address]: Dr. Rosario Benton MD : 1985 BED: DIS: 02/20/2019 SPEC #: [id number] RECD: 02/21/19 12:52 STATUS: KERRY REAlec #: [id number] LEONARD: 02/20/19 00:[address]: Rosario Montoya DEPT: IMMUNOHISTOCHEMISTRY RECD BY: Abi Anderson ENTERED: 02/21/19 12:53 SP TYPE: IMMUNO OTHR DR: Dr. Khang Morrison MD Tissues: A - Uterine cervix, NOS Procedures: p16 (initial) KI-67 (add) P16 (add) PHYSICIAN & INSTITUTION [place] [id number] SPECIMEN INFORMATION: Tissue Source: A - Ectocervix Clinical Info: Moderate cervical dysplasia Specimen Number: [id number] A1 & A2 CPT code: 38280, 14018 x3 METHODOLOGY: Deparaffinized sections of prefer/formalin-fixed tissue or PAP/DQ stained slides are incubated with monoclonal/polyclonal antibodies/oligonucleotide probes. Localization is made via biotin free immunoperoxidase method. Appropriate controls are performed and reacted as expected. Results on target cell population are indicated in the following table: RESULTS: ANTIBODY / CLONE RESULT Block A1 P16 (E6H4) positive, patchy Ki-67 (30-9) positive, low Block A2 P16 (E6H4) positive, block-like Ki-67 (30-9) positive, moderate These tests were developed and their performance characteristics determined by [facility]. They may not have been cleared or approved by the U.S. Food and Drug Administration. The FDA has determined that such clearance or approval is not necessary. INTERPRETATION: A. Ectocervix: Mild to moderate squamous dysplasia, THEODORE II (HGSIL). AM:antoine 02/22/19
[2019-02-20 06:21] LABS: Internal QC Validated? YES +Cl - CLEAR BKGD; Pregnancy, Urine Negative Negative
--- NOTE | 2019-02-20 07:24 | DCINST_ITS ---
Discharge Diet: No Restrictions Discharge Activity: Return to Normal Activity, May Shower, - - No tub bath for 2 weeks, no driving for 24 hours May resume sexual activity in: 4 weeks Keep extremity elevated above heart level: Operative Extremity - 20 lb Call your doctor if you observe: Fever of 101 or Higher, Inability to urinate, Using more than one pad per hour, Shortness of breath, Chest pain, Calf discomfort, Uncontrolled pain Suture Line Care: Avoid Pulling/Pushing Allergies/Adverse Reactions: Allergies morphine Adverse Reaction (Verified 02/13/19 15:28) Itching Medications to take at Discharge Omeprazole [Prilosec] 40 mg PO QHS 02/13/19 Sumatriptan Succinate [Imitrex] 100 mg PO PRN PRN 02/13/19 Topiramate [Topamax] 100 mg PO QHS 02/13/19 Primary Care Physician: Khang Morrison [Primary Care Provider] - Test Results: Test results from this visit will be discussed in further detail at your follow- up appointment, if applicable. Please Follow Up With: Rashmi Cantrell MD - cervix check and follow up When: 4 weeks
--- NOTE | 2019-02-20 07:30 | CER_PTH ---
PATIENT: LAURA WHITESIDE LOC: [facility] [place] U#:[id number] AGE/SX: 33/F ROOM: RE02/20/[address]: Dr. Rosario Benton MD : 1985 BED: DIS: 02/20/2019 SPEC #: [id number] RECD: 02/20/19 11:15 STATUS: KERRY KEVEN #: [id number] LEONARD: 02/20/19 07:[address]: Rosario Montoya DEPT: SURGICAL PATHOLOGY RECD BY: Etienne Hawthorne ENTERED: 02/20/19 13:09 SP TYPE: CERV OTHR DR: Dr. Khang Morrison MD Tissues: A - Uterine cervix, NOS B - Uterine cervix, NOS C - Endocervical Procedures: Surgery Specimen Level IV Surgery Specimen Level V HEADER OPERATION: LEEP cone with top hat endocervical curettings PRE-OP DIAGNOSIS: Moderate cervical dysplasia TISSUE SUBMITTED: A - Ectocervix, B - Top hat (cervix), C - Endocervical curettings MICROSCOPIC DIAGNOSIS A. Ectocervix, LEEP conization: Mild to focal moderate squamous dysplasia, THEODORE I-II (HGSIL). Changes consistent with HPV cytopathic effect. Squamous metaplasia and chronic inflammation. Margins of incision are free of dysplasia. See comment. B. Cervix, top hat, LEEP conization: Fragments of endocervix with mild chronic inflammation. No evidence of dysplasia. C. Endocervix, curettings: Rare strips of benign superficial endocervix. AM:antoine 02/21/19 COMMENT A. Results from immunohistochemistry ([id number]) for surrogate HPV marker (p16) will be reported separately. Reference is made to the patient's cervical biopsy and endocervical curettings ([id number]) in which dysplastic epithelium consistent with moderate dysplasia was identified. Case has been reviewed in consultation with Dr. Page who concurs with the above diagnosis. IDC:JOYCELYN MICROSCOPIC DESCRIPTION Slides are reviewed. GROSS DESCRIPTION A - Received in fixative is one container labeled with the patient's name and designated ectocervix opened at 12 o'clock. The specimen consists of a previously opened reynolds, indurated piece of LEEP conization measuring 3 x 1.6 x 0.9 cm. No mucosal lesion is identified. Nonmucosal surface is inked black. The endocervical margin is inked blue. The specimen is serially sectioned and submitted entirely in four cassettes as follows: 1 - 12 to 3 o'clock, 2 - 3 to 6 o'clock, 3 - 6 to 9 o'clock, 4 - 9 to 12 o'clock. B - Received in fixative is one container labeled with the patient's name and designated top hat cervix. The specimen consists of a previously opened piece of reynolds, indurated tissue measuring 2 x 1 x 0.5 cm. No mucosal lesion is identified. Nonmucosal surface is inked black. The specimen is serially sectioned and submitted entirely in two cassettes. C - Received in fixative is one container labeled with the patient's name and designated endocervical curettings. The specimen consists of a scant fragment of hemorrhagic mucoid tissue. The entire specimen is submitted for cell block preparation. / JOYCELYN:antoine 02/20/29 TC:0 CPT:12903x2,35372
[2019-02-20] MEDS: FERRIC SUBSULFATE 8 GM SOLN (07:58)
--- NOTE | 2019-02-20 08:09 | PCM.OPRPT ---
Problem List (1) Moderate cervical dysplasia Status: Acute Report of Operation Date of Procedure: 02/20/19 Pre-Operative Diagnosis: Moderate cervical dysplasia Post-Operative Diagnosis: Moderate cervical dysplasia Surgery/Procedure Performed:: LEEP Description of Surgical Findings:: Lugol's resistance at 6 o'clock Paragard strings visualized Type of Anesthesia:: Local MAC Anesthesiologist: Tip Garza CRNA Specimen's removed: 1. ectocervix. 2. top hat. 3. 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 Colposcopic biopsy showed THEODORE-1 at 6:00 and THEODORE-2 on ECC. She was counseled regarding management options and opted to proceed with LEEP. Risks, benefits, indications and alternatives were reviewed. The patient desired to proceed. Procedure: Patient was taken to the operating room and Center was performed. She is placed in a dorsal supine position and induced under MAC. She was then repositioned into dorsal lithotomy. Perineum was prepped and draped in sterile fashion. Straight catheterization of the bladder was performed. An insulated speculum was placed into the vagina and the cervix visualized and grasped the anterior cervical lip using a single-tooth tenaculum given its large size however otherwise was normal on gross appearance. ParaGard IUD strings were trimmed to the level of the ectocervix. A paracervical block was placed for a total of 20 cc of 1% lidocaine with epinephrine 1: 100,000. Lugol's solution was applied with resistance at 6 o'clock. LEEP was performed. This was followed by Top-Hat excision and endocervical curettage. The cervical excisional bed was fulgurated and subsequently electrocoagulated with improved hemostasis. Monsel solution was also applied for continued hemostasis. The procedure was complete. Was removed from the cervix and the tenaculum site hemostatic. Packing was removed from the vagina. The patient was then placed into dorsal supine position, awakened and transferred to the recovery room without complication. Sponge counts were correct x2. - Complications None - Admit VTE Documentation VTE Present on Admission: No VTE Mechan Device Prophylaxis: SCD's VTE Pharm Prophylaxis ordered?: No
[2019-02-20] MEDS: Rizatriptan Benzoate 10 MG Tablet PO (08:42)
== END 2019-02-20 09:37 | disposition home or self-care (01) ==
LOC: SDC 05:57 → AC 05:57
PROVIDERS: Anesthesiology; Family Provider Family Medicine; PCP Family Medicine; Referring Provider Obstetrics & Gynecology; Visit Provider Obstetrics & Gynecology
PROC: 0UBC7ZZ Excision of Cervix, Via Natural or Artificial Opening (ICD-10-PCS; CPT 57522; principal; 2019-02-20 07:15)
DX: N87.1 Moderate cervical dysplasia (principal); K21.9 Gastro-esophageal reflux disease without esophagitis; G43.909 Migraine, unspecified, not intractable, without status migrainosus
CPT/HCPCS: 57522; 36415; 81025; 85027; 85610; 85730; 86850; 86900; 88305; 88307; 88341; 88342; J7120; J2405

== ENCOUNTER → 2019-06-18 09:50 | Outpatient (CLI) | payer MEDICAID, SELFPAY ==
[2019-02-20 06:49] VITALS: BMI 31.1
[2019-06-18 17:15] LABS: Chlamydia Trachomatis by PCR POSITIVE (Negative); Neisserai gonorrhoeae by PCR Negative (Negative); Probe Check PASS; Sample Adequacy Control PASS; Specimen Processing Control PASS; Trichomonas Vag DNA by PCR Negative (Negative)
[2019-06-21 15:11] LABS: HPV APTIMA, High Risk Negative (Negative)
== END ==
PROVIDERS: Visit Provider Obstetrics & Gynecology
DX: N87.1 Moderate cervical dysplasia (principal); Z11.3 Encounter for screening for infections with a predominantly sexual mode of transmission
CPT/HCPCS: 87491; 87591; 87624; 87661; 88175; G0145

== ENCOUNTER → 2019-09-17 10:29 | Outpatient (CLI) | payer MEDICAID, SELFPAY ==
[2019-02-20 06:49] VITALS: BMI 31.1
[2019-09-17 14:30] LABS: Chlamydia Trachomatis by PCR Negative (Negative); Neisserai gonorrhoeae by PCR Negative (Negative); Probe Check PASS; Sample Adequacy Control PASS; Specimen Processing Control PASS
== END ==
PROVIDERS: Visit Provider Obstetrics & Gynecology
DX: Z11.3 Encounter for screening for infections with a predominantly sexual mode of transmission (principal)
CPT/HCPCS: 87491; 87591

== ENCOUNTER → 2019-12-17 | Outpatient (CLI) | payer MEDICAID, SELFPAY ==
[2019-02-20 06:49] VITALS: BMI 31.1
[2019-12-19 15:17] LABS: HPV APTIMA, High Risk Negative (Negative)
== END | disposition home or self-care (01) ==
PROVIDERS: Referring Provider Obstetrics & Gynecology; Visit Provider Obstetrics & Gynecology
DX: Z12.4 Encounter for screening for malignant neoplasm of cervix (principal); A49.3 Mycoplasma infection, unspecified site
CPT/HCPCS: 87624; 88175; G0145

== ENCOUNTER 2020-04-16 07:30 | Day surgery (SDC) | payer MEDICAID, SELFPAY ==
[2019-02-20 06:49] VITALS: BMI 31.1
[2020-04-10 11:09] LABS: Hematocrit 36.9 % (37-47); Hemoglobin 12.4 g/dL (12.0-15.0); Mean Corp Hgb Conc 33.6 g/dL (32-36); Mean Corpuscular Hgb 30.9 pg (27.0-32.0); Mean Platelet Vol. 10.1 fl (6.2-12.0); Platelet Count 263 K/mm3 (150-450); RBC Distribution Width CV 12.4 % (11.6-14.6); RBC Distribution Width SD 40.9 fl (35.1-43.9); Red Blood Count 4.01 M/mm3 (4.2-5.4); White Blood Count 7.3 K/mm3 (4.4-11.0)
[2020-04-10 11:15] LABS: International Normalized Ratio 1.1; Prothrombin Time (Protime)PT. 13.3 SECONDS (11.7-14.9)
[2020-04-16] VITALS (7 sets, daily range): BP systolic 111–135; BP diastolic 65–79; PULSE 74–84; RESP 14–16; TEMP 36.3; O2SAT 98–100; BMI 34.0
--- NOTE | 2020-04-16 | FORE_PTH ---
PATIENT: LAURA WHITESIDE LOC: [facility] – [place] U#:[id number] AGE/SX: 34/F ROOM: RE04/16/[address]: Dr. Rosario Benton MD : 1985 BED: DIS: 04/16/2020 SPEC #: [id number] RECD: 04/16/20 10:52 STATUS: KERRY REAlec #: [id number] LEONARD: 04/16/20 00:[address]: Rosario Montoya DEPT: SURGICAL PATHOLOGY RECD BY: Miguel Rivera ENTERED: 04/16/20 10:54 SP TYPE: FOREIGN B OTHR DR: No Primary Care Phys Tissues: A - FOREIGN BODY B - Endometrium, NOS Procedures: Surgery Specimen Level I Surgery Specimen Level IV HEADER OPERATION: Hysteroscopy, D & C, hysteroscopic IUD removal PRE-OP DIAGNOSIS: Irregular menstrual cyst, mechanical complication of IUD; rule out actinomyces TISSUE SUBMITTED: A - IUD, B - Endometrial curettings MICROSCOPIC DIAGNOSIS A. IUD, removal: Unremarkable T-shaped IUD (gross diagnosis only). B. Endometrium, curettings: Proliferative endometrium with chronic endometritis. AM:antoine 04/17/20 MICROSCOPIC DESCRIPTION Slides are reviewed. GROSS DESCRIPTION A - Received in fixative is one container labeled with the patient's name and designated IUD. The specimen consists of a T-shaped intrauterine device. The horizontal portion of the T measures 3.2 and 3.3 cm and longitudinal portion of the T measures 3.4 cm. A reynolds-white suture is also noted at the tip of the T measuring 3 cm in length. A focal area of the T shows brownish-black material. The specimen is for gross identification only. B - Received in fixative is one container labeled with the patient's name and designated endometrial curettings. The specimen consists of multiple fragments of hemorrhagic soft tissue that in aggregate measure 2.5 x 1.5 x 0.2 cm. The specimen is totally submitted in one cassette. / SJ:antoine 04/16/20 TC:3 CPT: 96042, 03743
--- NOTE | 2020-04-16 07:30 | HP.PCM_ITS ---
- Problem List (1) Retained intrauterine contraceptive device (IUD) Status: Acute (2) Abnormal uterine bleeding Status: Acute History and Physical Date of Admission: 04/16/20 Date: 04/10/2020 Name: SADIE HELMS Age: 34 Date of : 1985 HISTORY OF PRESENT ILLNESS: On 04/10/2020, Sadie Helms, a 34 year old female 3 1 0 0 4, presented for: -- Pre-Op -- Sadie is being seen for preop visit. Pt to have Laparoscopic IUD removal 04/16/[address] Seda Benton. Pt was seen in January/2020 and the IUD was unable to be removed. Consents signed and information reviewed. Pt would like to have her IUD checked today to see if it is removable in office. Medications and allergies are up to date. AM Plan for hysteroscopic IUD removal due to missing string. shm ALLERGIES: NKDA, Morphine, Rash and itching MEDICATIONS HISTORY: Current medications prescribed by our practice are: 1. doxycycline monohydrate 100 mg capsule, 1 tab po bid 2. ibuprofen 600 mg tablet, 1 tab po tid prn pain 3. Junel Fe 24 1 mg-20 mcg (24)/75 mg (4) tablet, One pill by mouth once a day Patient is also takin. Imitrex 50 mg tablet 2. Topamax 100 mg tablet 3. Prilosec OTC 20 mg tablet,delayed release, 1 PO QD REVIEW OF SYSTEMS: GENERAL - Denies fever, or chills SKIN - Denies skin changes EYES - Denies visual changes EARS - Denies difficulty hearing NOSE - Denies nasal congestion or bleeding MOUTH - Denies sore throat or difficulty swallowing NECK - Denies pain or swelling RESPIRATORY - Denies shortness of breath or wheezing CARDIOVASCULAR - Denies palpitations or chest pain GASTROINTESTINAL - Denies nausea, vomiting, diarrhea, constipation GENITOURINARY - Denies dysuria, frequency of urination, incontinence of urine MUSCULOSKELETAL - Denies joint or muscle pain NEUROLOGICAL - Denies localized numbness or weakness PSYCHIATRIC - Denies depression or anxiety ENDOCRINE - Denies heat or cold intolerance, weight loss or gain HEMATO-IMMUNOLOGIC - Denies excesive bleeding with cuts SURGICAL HISTORY: 1. ganglion cyst removed from rt wrist 05/06 2. 03/17/2011 oligio, 34 wks 3. 02/20/2019 LEEP Rosario Benton MD 4. 11/25/2015 Rosario Benton MD MENSTRUAL HISTORY: LMP Known?- Approximate-Month KnownAmount/Duration - 6 days, Regularity - regular, Frequency - monthly days, LMP - 03/31/20, Age Onset Menarche - 16 FAMILY HISTORY: Mother - Unknown Disease; MaternalGrandparent - Unknown Disease; PaternalGrandparent - Leukemia; PHYSICAL EXAMINATION BP- 110/80 Sitting, Right arm, regular cuff Temp- 98.3 Taken Orally Weight- 183.60 lbs Height- 63.00 inch BMI:32.59 CONSTITUTIONAL - NAD, well nourished, and well developed SKIN - No rash, lesions, or ulcers HEENT - normocephalic, atraumatic, sclerae anicteric LUNGS - CTA x2 without wheezes, crackles or rales CARDIAC - Regular rate and rhythm without rubs, murmurs, or gallops EXTREMITIES - No edema or calf tenderness NEUROLOGICAL - normal gait, normal balance, normal motor PSYCHIATRIC - A and O to time, place, person, mood and affect DETAILED PELVIC EXAM External Genital Vagina - non-tender without lesions Urethra/Urethral Meatus - non-tender Bladder - non-tender Vagina - vaginal shaffer are pink and moist without loss of rugae and no evidence of atropy Cervix - has normal size and features without evident lesions, IUD strings again not seen Uterus - bimanual deferred Adnexa - bimanual deferred ASSESSMENT: PLAN BY DIAGNOSIS: 1. Irregular Menstrual Cycle (btb) and Mechanical Complication Of Intrauterine Contraceptive Device IUD strings again not visitble on exam and unable to retrieve with cytobrush Plan to proceed with hysteroscopic removal Procedure, anticipated hospitalization and recovery reviewed. r/b/i/a discussed Consents signed NPO at 4h prior to arrival, may have clears after midnight until that time Preop packet given, labs pending Medication(s) Stopped/Reason: doxycycline monohydrate 100 mg capsule - No Longer Needed Essential Procedure Criteria Procedure Essential: Yes Criteria Note: On 02/11/2020 the [place] Department of Health ([facility]) Public Order signed by [facility] Director Vivian Zamarripa M.D., regarding the Management of Non- Essential Surgeries and Procedures for the purpose of preserving Personal Protective Equipment (PPE) and critical hospital capacity and resources within [place] went into effect as of 02/12/2020 at 5:00PM. According to the [facility] Public Order: This action will remain in full force and effect until the State of Emergency declared by the Governor no longer exists or the Director of the [facility] rescinds or modifies this Order.. This [facility] order stated all non-essential or elective surgeries and procedures that utilize PPE should be delayed unless the re is undue risk to the current or future health of a patient. After reviewing the aforementioned [facility] Public Order and the patients clinical case, I have determined that the scheduled procedure meets the criteria to go forward. Risk to Patient if Procedure Delayed: Presence of severe symptoms causing an inability to perform ADL's
[2020-04-16 07:52] LABS: Internal QC Validated? YES +Cl - CLEAR BKGD; Pregnancy, Urine Negative Negative
[2020-04-16] MEDS: Lactated Ringers 1,000 ML 125 ML IV (08:00)
--- NOTE | 2020-04-16 09:32 | OP.PCM_ITS ---
Problem List (1) Retained intrauterine contraceptive device (IUD) Status: Acute (2) Abnormal uterine bleeding Status: Acute Report of Operation Date of Procedure: 04/16/20 Pre-Operative Diagnosis: 1. Excessive and frequent menstruation with irregular cycle. 2. Retained paragard IUD with missing strings Post-Operative Diagnosis: same Surgery/Procedure Performed:: 1. Hysteroscopic Paragard IUD removal. 2. Dilation and curettage Description of Surgical Findings:: Retroflexed uterus Intrauterine IUD strings Type of Anesthesia:: Local MAC Anesthesiologist: Kamron Garcia Drains: UO 100 ml Estimated Blood Loss (mL): 10 Description of Procedure: Indications: 34-year-old 4 para 4 with a history of persistent frequent vaginal bleeding with ParaGard IUD in situ. She requested IUD removal however office attempts were unsuccessful including ultrasound-guided attempts. Following counseling she opted to proceed with hysteroscopic ParaGard IUD removal. Procedural risks, benefits, indications and alternatives were reviewed. Patient desired to proceed. Procedure: The patient was brought to the operating room and signed and was performed. She is placed in the dorsal supine position and induced under MAC a nesthesia. She was repositioned to dorsal lithotomy and the perineum was prepped and straight catheterization of the bladder performed. She sterilely draped and placed in high lithotomy. A bivalve speculum is placed vaginally and the cervix active with 1% lidocaine at the anterior cervical lip. A paracervical block was also placed for a total of 29 cc of lidocaine used. The uterus was unable to be sounded due to cervical stenosis thus the cervix was dilate and subsequently sounded to 8 cm. Hysteroscopy was performed demonstrating indwelling ParaGard IUD within the uterus as well as intra-uterine string placement. The scope was removed and operative Hysteroscopy was performed with alligator forceps introduced into the uterus, the ParaGard strings were grasped and the IUD was removed without difficulty. I did decide to proceed with sharp curettage at this time given prolongation of her bleeding. Sharp curettage was performed. The procedure was complete the tenaculum was removed from the cervix. The tenaculum site was not hemostatic and compression was required with hemostasis obtained. The procedure was complete. The speculum was removed. The patient was repositioned to the dorsal supine, awakened and transferred to the recovery room without complication. Sponge and needle counts were correct x2. - Complications None - Admit VTE Documentation VTE Present on Admission: No VTE Mechan Device Prophylaxis: SCD's VTE Pharm Prophylaxis ordered?: No
--- NOTE | 2020-04-16 10:44 | PCM.DC.D&C ---
Discharge Diet: No Restrictions Discharge Activity: Return to Normal Activity, May not drive while taking narcotic pain medications., May Shower May resume sexual activity in: 4 weeks Call your doctor if you observe: Fever of 101 or Higher, Inability to urinate, Inability to have a bowel movement, Using more than one pad per hour, Shortness of breath, Chest pain, Calf discomfort, Uncontrolled pain Allergies/Adverse Reactions: Allergies morphine Adverse Reaction (Verified 04/09/20 09:52) Itching Medications to take at Discharge Omeprazole [Prilosec] 40 mg PO QHS 02/13/19 Sumatriptan Succinate [Imitrex] 100 mg PO PRN PRN 02/13/19 Topiramate [Topamax] 100 mg PO QHS 02/13/19 Ibuprofen 600 mg PO TID PRN #30 tablet 02/20/19 Ibuprofen 600 mg PO TID PRN #30 tab 04/16/20 Oxycodone [Oxyir] 5 mg PO Q6H PRN PRN 7 Days #4 tab 04/16/20 The following prescriptions were given: Ibuprofen 600 mg PO TID PRN #30 tab PRN Reason: Pain Score 1-10/10 Transmission Status: Received by [facility][id number] Oxycodone [Oxyir] 5 mg PO Q6H PRN PRN 7 Days #4 tab PRN Reason: SEVERE PAIN Transmission Status: Received by [id number] Primary Care Physician: Care Physician,No Primary [Primary Care Provider] - Test Results: Test results from this visit will be discussed in further detail at your follow-up appointment, if applicable. Please Follow Up With: Rosario Bess MD When: 4 weeks
== END 2020-04-16 10:50 | disposition home or self-care (01) ==
LOC: SDC 07:32 → AC 07:33
PROVIDERS: Anesthesiology; Referring Provider Obstetrics & Gynecology; Visit Provider Obstetrics & Gynecology
PROC: 0UDB8ZZ Extraction of Endometrium, Via Natural or Artificial Opening Endoscopic (ICD-10-PCS; CPT 58558; principal; 2020-04-16 08:45)
DX: T83.32XA Displacement of intrauterine contraceptive device, initial encounter (principal); N71.1 Chronic inflammatory disease of uterus; K21.9 Gastro-esophageal reflux disease without esophagitis; Z79.899 Other long term (current) drug therapy; Z11.59 Encounter for screening for other viral diseases
CPT/HCPCS: 00952; 58562; 36415; 81025; 85027; 85610; 85730; 86850; 86900; 86901; 87635; 88300; 88305; G2023; J7120; U0004

== ENCOUNTER → 2020-12-18 13:19 | Outpatient (CLI) | payer MEDICAID, SELFPAY ==
[2020-04-16 07:46] VITALS: BMI 34.0
[2020-12-24 13:49] LABS: HPV APTIMA, High Risk Negative (Negative)
== END ==
PROVIDERS: Visit Provider Obstetrics & Gynecology
DX: Z12.4 Encounter for screening for malignant neoplasm of cervix (principal); N76.0 Acute vaginitis
CPT/HCPCS: 87624; 88175; G0145

== ENCOUNTER → 2021-01-01 13:23 | Outpatient (CLI) | payer MEDICAID, SELFPAY ==
[2020-04-16 07:46] VITALS: BMI 34.0
--- NOTE | 2021-01-01 13:45 | MRI_ITS ---
STUDY: MRI BRAIN WITH AND WITHOUT CONTRAST (ATTENTION INTERNAL AUDITORY CANALS - I.A.C.''s) REASON FOR EXAM: Female, 35 years old. LEFT deafness TECHNIQUE: Standardized multiplanar fat and water weighted pulse sequences were obtained. IV 17cc dotarem was administered for the contrast portion of the examination. COMPARISON: None. FINDINGS: Normal bilateral temporal bones. Normal bilateral internal auditory canals. There is no demonstrated intracanalicular or cisternal vestibular schwannoma (acoustic neuroma). There is no enhancement of the bilateral VIIth or VIIIth cranial nerves. Normal bilateral cochlea, vestibules and semicircular canals. Normal size of the ventricles and extra-axial spaces for the patient''s age. Normal white matter tracts of the supratentorial brain. There is no evidence for recent intracranial ischemia or other cause of cytotoxic edema on diffusion weighted imaging (DWI). Normal bilateral basal ganglia. Normal thalami. Normal flow voids within the major intracranial circulation suggesting patency by spin echo criteria. Normal venous enhancement. There is no enhancing intra-axial or extra-axial abnormality. There is no extra-axial fluid accumulation. Normal sella turcica, pituitary gland, infundibular stalk, optic chiasm and hypothalamus. Normal tectal plate and pineal gland. Normal midbrain, edison and medulla. Normal cerebellum. Normal basal cisterns. No demonstrated orbital abnormality, within the constraints of a routine brain study. Normal visualized paranasal sinuses. Normal calvarium and skull base. Normal visualized soft tissue structures. Normal visualized upper cervical spine. MRI/Brain W/WO Contrast IMPRESSION: Normal unenhanced and enhanced MRI of the bilateral internal auditory canals (I.A.C''s). Electronically Signed: Rancho Nguyen MD at 15:23 EST Tel , Service support ,
== END ==
PROVIDERS: Referring Provider Otolaryngology; Visit Provider Otolaryngology
DX: H90.42 Sensorineural hearing loss, unilateral, left ear, with unrestricted hearing on the contralateral side (principal)
CPT/HCPCS: 70553; A9575

== ENCOUNTER 2021-02-02 06:06 | Day surgery (SDC) | payer MEDICAID, SELFPAY ==
[2020-04-16 07:46] VITALS: BMI 34.0
[2021-02-02 06:34] VITALS: BP 112/86; PULSE 106; RESP 16; TEMP 36.6; O2SAT 100; BMI 34.5
[2021-02-02 06:42] LABS: Internal QC Validated? YES +Cl - CLEAR BKGD; Pregnancy, Urine Negative Negative
[2021-02-02] MEDS: Lactated Ringers 1,000 ML 100 ML IV (06:44)
--- NOTE | 2021-02-02 07:27 | DCINST_ITS ---
You will use the following diet at home:: No restrictions Your food should be the consistency of: Regular Discharge Activity: May not drive while taking narcotic pain medications. Call your doctor if your incision/area has: Increased Pain/ Swelling Allergies/Adverse Reactions: Allergies morphine Adverse Reaction (Verified 01/26/21 13:09) Itching Medications to take at Discharge Omeprazole [Prilosec] 40 mg PO QHS 02/13/19 Sumatriptan Succinate [Imitrex] 100 mg PO PRN PRN 02/13/19 Topiramate [Topamax] 100 mg PO QHS 02/13/19 Ibuprofen 600 mg PO TID PRN #30 tab 04/16/20 Multivitamin 1 ea PO DAILY 01/26/21 Norethindrone-E.estradiol-Iron [Blisovi 24 Fe Tablet] 1 ea PO DAILY 01/26/21 Primary Care Physician: LESLIE OAKES [Other] Test Results: Test results from this visit will be discussed in further detail at your follow- up appointment, if applicable. Please Follow Up With: René Romo MD When: 1 week
--- NOTE | 2021-02-02 07:28 | PCM.OPRPT ---
Problem List (1) Sensorineural hearing loss (SNHL) of left ear Status: Chronic Report of Operation Date of Procedure: 02/02/21 Pre-Operative Diagnosis: sensorineural hearing loss, left Post-Operative Diagnosis: sensorineural hearing loss, left Surgery/Procedure Performed:: left bone anchored hearing aid Type of Anesthesia:: General, Spinal/Supplemental Description of Procedure: on the day of the procedure, after appropriate informed consent was obtained, the patient was brought to the operating room and placed in supine position on the operating table. she was placed under general anesthesia by the anesthesiologist. the tube was secured, the eyes were taped. the table was rotated 90 degrees toward the surgeon. the left postauricular area was shaved. skin thickness was measured with a 22 gauge needle and found to be 7mm thick. thus, a 10mm abutment was chosen. the area was prepped and draped in sterile fashion. a 3cm postauricular incision was made with a 15 blade, 1cm anterior to the abutment site. the periosteum was exposed with the metzenbaum scissor. a weitlaner retractor was used. a cruciate incision was made in the periosteum with a 15 blade; this was pressed away with the raspatorium. the 3mm conical drill was used with irrigation and the correct drill settings. the defect was probed and bone was felt. the guard was removed from the drill bit and a 4mm hole was drilled. again, no dura was felt. a 4mm implant with a 10mm abutment was loaded; it was placed with the correct drill settings. the abutment was firmly in place. the skin was closed over the abutment with 3-0 prolene. a 5mm biopsy punch was used to expose the abutment. allevyn and a healing cap were placed. she was brought out of anesthesia and transferred to the PACU in stable condition.
[2021-02-02] MEDS: Lidocaine 1% /Epi 1:100 (20ml) 20 ML Vial (08:00)
[2021-02-02 08:15] VITALS: BP 112/86; BP 128/89; PULSE 103; RESP 16; TEMP 36.4; O2SAT 100
[2021-02-02 08:30] VITALS: BP 112/86; BP 129/91; PULSE 99; RESP 16; O2SAT 100
[2021-02-02 08:34] VITALS: BP 112/86; BP 129/89; PULSE 104; RESP 16; TEMP 36.3; O2SAT 100
[2021-02-02 08:59] VITALS: BP 112/86
[2021-02-02 10:11] VITALS: BP 112/86; BP 149/79; PULSE 105; RESP 16; TEMP 37.3; O2SAT 100
== END 2021-02-02 10:13 | disposition home or self-care (01) ==
LOC: SDC 06:07 → AC 06:08
PROVIDERS: Anesthesiology; Referring Provider Otolaryngology; Visit Provider Otolaryngology
PROC: (CPT 69710; principal; 2021-02-02 07:15)
DX: H90.42 Sensorineural hearing loss, unilateral, left ear, with unrestricted hearing on the contralateral side (principal); K21.9 Gastro-esophageal reflux disease without esophagitis; Z79.899 Other long term (current) drug therapy; G43.909 Migraine, unspecified, not intractable, without status migrainosus
CPT/HCPCS: 00120; 69714; 81025; 87426; C9803; J7120; J2405

== ENCOUNTER → 2021-08-11 16:51 | Outpatient (CLI) | payer BC, MEDICAID, SELFPAY ==
[2021-08-11 17:17] LABS: Absolute Lymphocyte Count 2.65 X10^3/uL (0.83-4.51); Absolute Neutrophil Count 5.1 X10^3/uL (2.0-7.7); Basophil# 0.03 X10^3/uL; Basophil% 0.4 % (0-1); Color, Urine Yellow (Yellow); Eosinophil# 0.06 X10^3/uL; Eosinophils% 0.7 % (0-5); Glucose, Dipstick Normal (Normal); Hematocrit 36.5 % (37-47); Hemoglobin 12.1 g/dL (12.0-15.0); Ketone-Dipstick Negative (Negative); Leukocyte Esterase-Dipstick Negative /ul (Negative); Lymphocyte # 2.65 X10^3/ul (0.83-4.51); Lymphocyte % 31.2 % (19-41); Mean Corp Hgb Conc 33.2 g/dL (32-36); Mean Corpuscular Hgb 29.3 pg (27.0-32.0); Mean Corpuscular Volume 88.4 fL (81-99); Mean Platelet Vol. 9.7 fl (6.2-12.0); Monocyte% 7.1 % (0-10); NRBC Flagged by Analyzer 0 % (0-5); Neutrophil # 5.13 X10^3/uL (2.7-7.7); Neutrophil % 60.4 % (47-70); Nitrite-Dipstick Negative (Negative); Occult Blood-Urine Negative /ul (Negative); Platelet Count 331 K/mm3 (150-450); Protein-Dipstick Negative (Negative); RBC Distribution Width CV 12.6 % (11.6-14.6); RBC Distribution Width SD 41.2 fl (35.1-43.9); Red Blood Count 4.13 M/mm3 (4.2-5.4); Specific Gravity, Urine 1.005 (1.002-1.030); Urine Bilirubin Dipstick Negative (Negative); Urine Clarity Clear (Clear); Urine Urobilinogen Normal (Normal); White Blood Count 8.5 K/mm3 (4.4-11.0)
[2021-08-11 17:39] LABS: Amphetamine Urine VISTA NEGATIVE (<1000 ng/mL); Barbiturate Urine VISTA NEGATIVE (< 200 ng/mL); Benzodiazepine Urine VISTA NEGATIVE (< 200 ng/mL); Cocaine Urine VISTA NEGATIVE (< 300 ng/mL); Ecstacy Urine VISTA NEGATIVE (< 500 ng/mL); Methadone Urine VISTA NEGATIVE (< 300 ng/mL); PCP Urine VISTA NEGATIVE (< 25 ng/mL); THC Urine VISTA NEGATIVE (< 50 ng/mL); Vista UDS pH Range 6
[2021-08-11 17:59] LABS: Thyroid Stim Hormone (TSH) 0.85 uIU/mL (0.358-3.74)
[2021-08-12 12:01] LABS: HIV - WCH Non-Reactive (Nonreactive); Hepatitis B Surface Antigen Non-Reactive (Nonreactive); Hepatitis C Antibody Non-Reactive (Nonreactive); Rubella IgG Equiv (Nonreactive); Syphilis Antibodies Non-reactive
[2021-08-14 03:08] LABS: Chlamydia By Nucleic Acid AMP Negative (Negative)
[2021-08-14 09:16] LABS: Gonococcus By Nucleic Acid AMP Negative (Negative)
== END ==
PROVIDERS: Visit Provider Obstetrics & Gynecology
DX: Z34.81 Encounter for supervision of other normal pregnancy, first trimester (principal); Z11.3 Encounter for screening for infections with a predominantly sexual mode of transmission
CPT/HCPCS: 36415; 80307; 81002; 84443; 85025; 86703; 86762; 86780; 86803; 87086; 87340; 87491; 87591

== ENCOUNTER 2021-12-17 09:44 | Outpatient (CLI) | payer BC, MEDICAID, SELFPAY ==
[2021-12-17 10:28] LABS: Hematocrit 31.1 % (37-47); Hemoglobin 10.7 g/dL (12.0-15.0); Mean Corp Hgb Conc 34.4 g/dL (32-36); Mean Corpuscular Hgb 31.4 pg (27.0-32.0); Mean Corpuscular Volume 91.2 fL (81-99); Mean Platelet Vol. 10.5 fl (6.2-12.0); Platelet Count 257 K/mm3 (150-450); RBC Distribution Width CV 13.5 % (11.6-14.6); Red Blood Count 3.41 M/mm3 (4.2-5.4); White Blood Count 10.8 K/mm3 (4.4-11.0)
[2021-12-17 10:32] LABS: Glucose Challenge Gest 1H 50g 137 mg/dL (70-140)
== END 2021-12-17 23:59 | disposition short-term general hospital (02) ==
LOC: WOBLAB 09:47
PROVIDERS: Visit Provider Obstetrics & Gynecology
DX: Z34.82 Encounter for supervision of other normal pregnancy, second trimester (principal)
CPT/HCPCS: 36415; 82950; 85027

== ENCOUNTER 2022-02-11 11:30 | Outpatient (CLI) | payer MEDICAID, SELFPAY | END 2022-02-11 23:59 | disposition home or self-care (01) | LOC: LABSPEC 11:33 | PROVIDERS: Visit Provider Obstetrics & Gynecology | DX: Z36.85 Encounter for antenatal screening for Streptococcus B (principal) | CPT/HCPCS: 87081 ==

== ENCOUNTER 2022-02-18 05:15 | Inpatient (IN) | payer MEDICAID, SELFPAY ==
[2022-02-18] VITALS (15 sets, daily range): BP systolic 116–139; BP diastolic 61–84; PULSE 77–112; RESP 13–18; TEMP 36.1–36.8; O2SAT 92–100; BMI 36.0
[2022-02-18] MEDS: Lactated Ringers 1,000 ML 999 ML IV (05:45)
[2022-02-18 06:12] LABS: Absolute Neutrophil Count 6.9 X10^3/uL (2.0-7.7); Basophil# 0.03 X10^3/uL; Basophil% 0.3 % (0-1); Eosinophil# 0.09 X10^3/uL; Eosinophils% 0.9 % (0-5); Hematocrit 32.9 % (37-47); Hemoglobin 11.1 g/dL (12.0-15.0); Lymphocyte % 21.3 % (19-41); Mean Corp Hgb Conc 33.7 g/dL (32-36); Mean Corpuscular Hgb 31.3 pg (27.0-32.0); Mean Corpuscular Volume 92.7 fL (81-99); Mean Platelet Vol. 10.8 fl (6.2-12.0); Monocyte# 0.48 X10^3/uL; Monocyte% 4.9 % (0-10); NRBC Flagged by Analyzer 0 % (0-5); Neutrophil # 6.94 X10^3/uL (2.7-7.7); Neutrophil % 70.3 % (47-70); Platelet Count 205 K/mm3 (150-450); RBC Distribution Width CV 13.2 % (11.6-14.6); RBC Distribution Width SD 44.9 fl (35.1-43.9); Red Blood Count 3.55 M/mm3 (4.2-5.4); White Blood Count 9.9 K/mm3 (4.4-11.0)
[2022-02-18] MEDS: Acetaminophen 500 MG Tablet 1000 MG PO ×3 (06:30→19:22)
[2022-02-18] MEDS: Lactated Ringers 1,000 ML 150 ML IV (06:54)
[2022-02-18] MEDS: Sodium Citrate/Citric Acid 30 ML UDC PO (07:19)
--- NOTE | 2022-02-18 07:20 | HP.PCM.OB_ITS ---
HPI - General General Date of Admission: 02/18/22 HPI Narrative KIRSTIN WHITESIDE, is a 36 F who presents for scheduled repeat section with bilateral salpingectomy. Maternal Data Information MOO Calculator Estimated Delivery Date Method Current WG Current Estimate 03/15/22 LMP (Certain) 36w 3d PFSH PFSH Medical History (Updated 02/18/22 @ 07:[address] Rosario Benton MD) Deafness in left ear History of pre-term labor HPV (human papilloma virus) infection Migraine headache Placental abnormality Home Medications omeprazole 40 mg PO QHS 02/13/19 [History Last Taken 02/17/22 22:00] multivitamin 1 ea PO DAILY 01/26/21 [History Last Taken 02/17/22 22:00] Allergy/AdvReac Type Severity Reaction Status Date / Time Sulfa (Sulfonamide Allergy Unknown Rash Verified 02/18/22 05:25 Antibiotics) morphine AdvReac Itching Verified 02/18/22 05:25 Family History Grandfather CVA (cerebral vascular accident) Grandmother Cerebral aneurysm Mother Cerebral aneurysm Unknown Cerebral aneurysm Surgical History History of surgery Previous section Status post placement of bone anchored hearing aid (BAHA) Social History (Updated 02/18/22 @ 07:[address] Rosario Benton MD) Smoking Status: Never smoker Electronic Cigarette Use: not used second hand exposure: Yes alcohol intake: former details: does not drink during substance use type: does not use History 5 Elective abortions 0 Hx Para 4 Spontaneous abortions 0 Hx # Term Pregnancies 3 Ectopic pregnancies 0 Hx # Pregnancies 1 Multiple births 0 # of living children 4 Past Pregnancies Del. Date Name GA/Weeks Outcome Route Bth Weight Infant Gen Labor Lgth Anesthesia Del Locatn Provider FOB 10/25/06 Saundra 38 live - full term 7lb 6oz Female 2 non e [place] 07/21/08 Jesus Alberto 39 live - full term 8lb 5oz Male 4 none [place] 03/17/11 Augustine 34 live - 4lb 11oz Male 0 spinal [facility] 12/30/15 Kyptin 37 live - full term [id number] Male 0 spinal [place] Delivery Date: 10/25/06 No notes to display Delivery Date: 07/21/08 No notes to display Delivery Date: 03/17/11 [place], placental abnormality, classical Rosario Bess Delivery Date: 11/25/15 No notes to display NST FHR Rate Baby A Baseline: 135 Variability:: Moderate Accelerations:: 15 x 15 Decelerations:: None NST Reactive:: Yes FHR Category:: Category I Uterine Activity:: 12/06 Vital Signs Vital Signs Vital Signs: 02/18/22 06:05 Temperature 97.0 F L Temperature Source Temporal Pulse Rate 107 H Respiratory Rate 18 Blood Pressure 133/81 H Blood Pressure Mean 98 Blood Pressure Source Monitor Blood Pressure Position Semi-Fowlers Blood Pressure Location Left Arm Pulse Ox 99 Oxygen Delivery Method Room Air Weight Weight: 89.358 kg Body Mass Index (BMI) 36.0 Physical Exam Const alert, oriented x3 and no apparent distress HEENT normocephalic Resp normal respiratory effort, normal air movement and clear to auscultation bilaterally Cardio regular rate and regular rhythm GI normal to inspection, nondistended, normoactive bowel sounds, soft to palpation, non-tender and non-distended Inspection: gravid Labs Labs Labs: Blood Type A POSITIVE Antibody Screen NEGATIVE Hct 32.9 % (37-47) L Hgb 11.1 g/dL (12.0-15.0) L Syphilis Total Ab Non-reactive VZV IgG Antibody 1.17 index (Immune >1.09) Rubella IgG Antibody Equiv (Nonreactive) Hep Bs Antigen Non-Reactive (Nonreactive) Chlamydia DNA (KATE) Negative (Negative) Neisseria gonorrhoeae DNA (KATE) Negative (Negative) HIV 1&2 Antibody Non-Reactive (Nonreactive) Glucose 1 Hr 50 gm 137 mg/dL (70-140) Group B Strep DNA Negative (Negative) Rhogam given: No Miscellaneous Test ACOG ANTEPARTUM RECORD - HISTORY AND PHYSICAL (02/18/2022) Name: KIRSTIN WHITESIDE History of this : This is a 36 year old [id number] presents at 36 wks + 3 days gestation. OB Physician: Rosario Benton MD [place]'s Physician: [facility] ...................................................................... : 1985 Age: 36 Address: [address] [place] [address] Phone: H) [phone]) [phone] Insurance Carrier: [employer] CLAIMS DEPT [id number] Emergency Contact: KALPANA ZAPATA [phone] ...................................................................... Final MOO: 03/15/22 By Ultrasound: PARITY: (G-Total Pregnancies P-Fullterm,Premature,Induced AB,Spont AB, Ectopics, Multiple,Living) MOO CONFIRMATION: By LMP: 06/08/21 Initial Exam: 03/15/22 By First Ultrasound Exam: 03/15/22 Final MOO: 03/15/22 OB PROBLEM LIST: EPDS = 1 Genetic and carrier screening declined Had Tdap- 12/18 Hx of Migraine headaches Plans to pump then feed expressed breast milk by bottle Prior Classical C/S Rpt C/S at 37wga RUBELLA EQUIVOCAL ALLERGIES: Morphine Rash, itching NKDA Sulfa (Sulfonamide Antibiotics) Rash, itching MEDICATIONS: ferrous sulfate 325 mg (65 mg iron) tablet One pill by mouth twice a day Pepcid 20 mg tablet One pill by mouth twice a day 28 mg iron-800 mcg tablet 1 tab po daily SOCIAL HISTORY: Smoking - Never Alcohol Use - denies drinking Diet - balanced Diet Lifestyle - moderate stress lifestyle and Exercise - regular Employer - [employer] 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 Illicit Drug Use - denies use of street drugs Sexual Activity - new sexual partner 2018 Residence - lives with Place of - [place], [place] Hours Worked - 30 wk Spouse-Sig Other Name - Eduardo Spouse-Sig Other Occupation - Self-employed, senior research project 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 Spouse-Sig Other Phone No - [phone] Children Name(s) - Jesus Alberto Arguello [place], Kyptin PRIOR DELIVERY HISTORY DEL DATE GEST LAB WT LB WT OZ TYPE ANES LABOR TX 21 Feb 11 34 0 4 11 P C/S Spinal No Jul 04 39 4 8 5 Vag None No Oct 02 38 2 7 6 Vag None No Nov 10 37 0 5 12 C-Sec Spinal No ANTEPARTUM FLOW CHART VISIT GE RTC FU F F AZ U U DATE WK MD WKS HT PN HR M SS BP ED WT AZ GL D EF ST __ ____ ___ __ __ ___ __ __ __ ___ __ __ __ ___ __ 18 Jan 35 SHM de 132/76 0 197 tr - 10 Mar 34 SHM 2 36 V + + 130/82 0 195 tr - 01 Mar 33 SHM 2 33 V + + 138/80 0 195 - - 16 Feb 31 SHM 2 31 V + + 116/66 0 195 - - 04 Dec SHM 2 31 ? + + 134/82 0 194 tr - Dec 23 SHM 2 29 ? + + 114/60 0 198 - - 23 Nov 18 JM 4 23 - + + 128/74 0 195 - - 24 Oct 15 SHM 4 19 + + -/ 110/78 0 192 ne ne 15 Sep 08 SHM 4 + US 110/70 0 190 tr - ANTEPARTUM NOTE(S): Feb 11 2022: Feb 03 2022: uncomfortable Jan 25 2022: Jan 12 2022: Dec 31 2021: uncomfortable Dec 17 2021: pressure and uncomfortable Nov 18 2021: doing well Oct 20 2021: Sep 10 2021: mild nausea, declines meds COMPREHENSIVE ANTEPARTUM NOTE(S): Feb 15 2022: H taken to OB. tkg Feb 03 2022: Kirstin is here for visit. Uncomfortable but otherwise doing well. Reviewed FM, SROM, labor. Planned R C/S with tubal. LMT Feb 03 2022: Pt leaning towards tubal, but uncertain as this time. Discussed further. US today EFW 81st%, 2720g, KIP 10cm. Jan 25 2022: Kirstin is 33weeks here for PNV. Good FM no edema. C/O pressure but otherwise doing well. BR Jan 25 2022: Growth US next visit for minimal weight gain, review maternal scar. Jan 12 2022: Kirstin is 31w1d here for PNV good FM no edema. States she is well with no concerns at this time. BR Jan 12 2022: No complaints. Plan for growth US approx 34wga given prior C/S x 4, scar assessment. Dec 31 2021: FM, PROM, and PTL reviewed. Had Tdap after last visit. LMT Dec 31 2021: PTL, FM precautions. Discussed maternity leave - pt with no paid leave, will plan to take rest of school year and return in the fall after C/S. Pt moving this weekend. Dec 17 2021: kirstin is 27w3d here for PNV good FM no edema. C/O pressure and just being uncomfortable. Would like to discuss tubal and daily nasal congestion. Tubal consent is signed. BR Dec 17 2021: Discussed tubal sterilization - salpingectomy vs. tubal ligation - risks, benefits. Pt considering, tubal consents signed. Timing of section given prior classical c/s. r/b for fetus reviewed - pt desires 36+ wga, will plan for betamethasone at 34-35wga. PTL, FM precautions. Advised Tdap, flu vaccine. Nov 18 2021: Kirstin is 23w2d here for PNV. Positive movement no edema. Glucola was given to complete at next visit. No concerns or complaints at this time. BR Nov 18 2021: 23 weeks, no complaints. 1 hour GTT next visit. JM Oct 20 2021: Anatomy scan today wnl, EFW 90th%, ANTERIOR PLACENTA, female, MOO at 13w scan discrepant with 9w scan, however, today again consistent, MOO 03/15/21. Pt requests delivery on 02/15/22 (35 6/7wga) - advised delivery recommen ded at 36-37wga. I encouraged closer to 37wga given increased risk for RDS, hypoglycemia, poor feeding, NICU admission and prolonged hospitalization associated with later s Sep 10 2021: Encouraged small, frequent meals for nausea. Carbs may work better until feeling better. Not interested in medication. LMT Sep 10 2021: Kirstin is here for her NOB visit, she is accompanied by her hus band, Eduardo. She is a with an MOO of 03/15/2022, current GA is 13 w 3 d. US and PNV completed today. She has 4 children at home, the first two being born vaginally, the last two were delivered by C/S due to classical incision. Past history updated. Repeat C/S at [facility] is planned, and she will pump and feed the baby breast Aug 11 2021: Kirstin is here for a missed menses appt with LMP 06-08-21 making her MOO approx 03-15-21= 9 weeks gestation. She is a G 5 P 4 with 3 full term and 1 . She 's had no spotting or cramping since LMP. She is having nausea without emesis. She experiences fatigue and has heartburn. She takes Pepcid but with minimal relief. She She is allergic to sulfa and morphine. Med record updated. Her REVIEW OF SYSTEMS: GENERAL - Denies fever, or chills SKIN - Denies rash, new skin lesions, or change in moles EYES - Denies blurred vision, or change in visual acuity EARS - Denies ear pain, or difficulty hearing NOSE - Denies nasal congestion, discharge, or bleeding MOUTH - Denies sore throat, or difficulty swallowing NECK - Denies pain or swelling RESPIRATORY - Denies shortness of breath, cough, wheezing CARDIOVASCULAR - Denies palpitations, chest pain, orthopnea, PND, peripheral edema, syncope or claudication GASTROINTESTINAL - Denies nausea, vomiting, diarrhea, constipation, Denies abdominal pain, melena and or bright red blood GENITOURINARY - Denies dysuria, frequency of urination, urgency, or hesitancy MUSCULOSKELETAL - Denies joint or muscle pain, or back pain NEUROLOGICAL - Denies localized numbness, weakness, or tingling PSYCHIATRIC - Denies depression, anxiety, substance abuse or suicide attempts ENDOCRINE - Denies heat or cold intolerance, weight loss or gain, increasing thirst HEMATO-IMMUNOLOGIC - Denies easy bruising, bleeding, oral ulcerations or recurrent infections GENETICS SCREENING: Age 35+ years: No Thalassemia: No Neural Tube Defect: No Down Syndrome: No EPHRAIM-SACHS: No Sickle Cell Disease: No Hemophilia: No Musc. Dystrophy: No Cystic Fibrosis: No-declines screening [place] Chorea: No Mental Retardation: No Fragile X: No Other genetic: No Other defects: No SABs/still births: No Drugs since LMP: No INFECTION HISTORY: High risk AIDS: No High risk Hepatitis: No Exposed to TB: No Exposed to Herpes: No Rash/viral illness since LMP: No History of STD: No MENSTRUAL HISTORY: *Menses Amount/Duration: 3-4 DAYSMenses Regularity: regularFrequency: monthlyMenarche (Age Onset): 16* PAST SUMMARY: PARITY: 1. Total Pregnancies............ 5 2. Full Term Pregnancies........ 3 3. Premature.................... 1 4. Abortions - Induced.......... 0 5. Abortions - Spontaneous...... 0 6. Ectopics..................... 0 7. Multiple Births.............. 0 8. Living Children.............. 4 PAST #1: Date of :.................. 10/25/06 Gestation Weeks:................ 38 Length of labor(hours):......... 2 Sex:............................ F Weight-lbs:............... 7 Weight-oz:................ 6 Type of Delivery:............... Vag Type of Anesthesia:............. None Place of Delivery:.............. [place] Treatment of Labor?:.... No Comment: NONE PAST #2: Date of :.................. 07/21/08 Gestation Weeks:................ 39 Length of labor(hours):......... 4 Sex:............................ M Weight-lbs:............... 8 Weight-oz:................ 5 Type of Delivery:............... Vag Type of Anesthesia:............. None Place of Delivery:.............. [place] Treatment of Labor?:.... No Comment: PAST #3: Date of :.................. 03/17/11 Gestation Weeks:................ 34 Length of labor(hours):......... 0 Sex:............................ M Weight-lbs:............... 4 Weight-oz:................ 11 Type of Delivery:............... P C/S Type of Anesthesia:............. Spinal Place of Delivery:.............. [facility] Treatment of Labor?:.... No Comment: [facility] PAST #4: Date of :.................. 11/25/15 Gestation Weeks:................ 37 Length of labor(hours):......... 0 Sex:............................ M Weight-lbs:............... 5 Weight-oz:................ 12 Type of Delivery:............... C-Sect Type of Anesthesia:............. Spinal Place of Delivery:.............. [place] Treatment of Labor?:.... No Comment: PHYSICAL EXAMINATION General Appearence: 36 yo female in no acute distress Vital Signs: AF, VSS Heart: RRR without rubs or gallops Lungs: CTA x 2 Breasts: deferred Abdomen: gravid Pelvis: Cervix: Presentation: cephalic Station: Fetus: Size: AGA Movement: present Heart: present LAB TEST(S) ORDERED SINCE:06/18/21 08/14/2021 URINE CULTURE 08/14/2021 CHLAMYDIA/GC KATE APTIMA 08/12/2021 RUBELLA IGG 08/12/2021 L509.8000 08/12/2021 HIV - [facility] 08/12/2021 HEPATITIS C ANTIBODY 08/12/2021 HEPATITIS B SURFACE ANTIGEN 08/11/2021 URINE DRUG SCREEN (VISTA) 08/11/2021 URINALYSIS, ROUTINE (DIPSTICK) 08/11/2021 THYROID STIM HORMONE (TSH) 08/11/2021 T AND S-NO CHARGE W/PNP 08/11/2021 CBC W/DIFF, AUTOMATED 02/18/2022 TYPE AND SCREEN 02/18/2022 COVID 19 AG RAPID (RN COLLECT) 02/18/2022 CBC W/DIFF, AUTOMATED 02/14/2022 RULE OUT BETA STREP (GRP. B) 12/17/2021 GLUCOSE CHALLENGE GEST 1H 50G 12/17/2021 CBC-COMPLETE BLOOD CNT NO DIFF == ==== Order Observation Description Value Ref_Range A* Site == ==== COVID 19 AG RAP NOTE [facility] S [facility]~[address] [place], [address]~ TYPE AND SCRE AB SCREEN GEL NEGATIVE ML CBC W/DIFF, AUT NOTE [facility] CBC W/DIFF, AUT WBC 9.9 K/mm3 4.4-11.0 ML CBC W/DIFF, AUT RBC 3.55 M/mm3 4.2-5.4 L ML CBC W/DIFF, AUT HGB 11.1 g/dL 12.0-15.0 L ML CBC W/DIFF, AUT HCT 32.9 37-47 L ML CBC W/DIFF, AUT MCV 92.7 fL 81-99 ML CBC W/DIFF, AUT MCH 31.3 pg 27.0-32.0 ML CBC W/DIFF, AUT MCHC 33.7 g/dL 32-36 ML CBC W/DIFF, AUT RDW CV 13.2 11.6-14.6 ML CBC W/DIFF, AUT RDW SD 44.9 fl 35.1-43.9 H ML CBC W/DIFF, AUT PLT 205 K/mm3 150-450 ML CBC W/DIFF, AUT MPV 10.8 fl 6.2-12.0 ML CBC W/DIFF, AUT NEUT% 70.3 47-70 H ML CBC W/DIFF, AUT LY% 21.3 19-41 ML CBC W/DIFF, AUT MONO% 4.9 0-10 ML CBC W/DIFF, AUT EO% 0.9 0-5 ML CBC W/DIFF, AUT BASO% 0.3 0-1 ML CBC W/DIFF, AUT IG% 2.300 0.0-0.9 H ML IG% - Immature Granulocytes (promyelocytes, myelocytes and metamyelocytes) > 1% indicates that a LEFT SHIFT is Present. CBC W/DIFF, AUT ABSOLUTE NEUT 6.9 X10 3/uL 2.0-7.7 ML CBC W/DIFF, AUT ABSOLUTE LYMPH 2.10 X10 3/uL 0.83-4.51 ML CBC W/DIFF, AUT NUCLEATED RBC 0 0-5 ML RULE OUT BETA S NOTE [facility] GLUCOSE CHALLEN NOTE [facility] GLUCOSE CHALLEN GLU GEST 50G 1H 137 mg/dL 70-140 ML CBC-COMPLETE BL NOTE [facility] CBC-COMPLETE BL WBC 10.8 K/mm3 4.4-11.0 ML CBC-COMPLETE BL RBC 3.41 M/mm3 4.2-5.4 L ML CBC-COMPLETE BL HGB 10.7 g/dL 12.0-15.0 L ML CBC-COMPLETE BL HCT 31.1 37-47 L ML CBC-COMPLETE BL MCV 91.2 fL 81-99 ML CBC-COMPLETE BL MCH 31.4 pg 27.0-32.0 ML CBC-COMPLETE BL MCHC 34.4 g/dL 32-36 ML CBC-COMPLETE BL RDW CV 13.5 11.6-14.6 ML CBC-COMPLETE BL RDW SD 45.0 fl 35.1-43.9 H ML CBC-COMPLETE BL PLT 257 K/mm3 150-450 ML CBC-COMPLETE BL MPV 10.5 fl 6.2-12.0 ML URINE CULTURE NOTE [facility] CHLAMYDIA/GC NA NOTE [facility] CHLAMYDIA/GC NA CHLAMY,NUC ACID Negative Negative [facility]CI CHLAMYDIA/GC NA GC BY NUC ACID Negative Negative LCI Performed at: = - [facility] [address], [place] [id number] Nuclear Design Engineer: Maria Del Carmen Adam MD, Phone: [phone] HEPATITIS C ANT NOTE [facility] HEPATITIS C ANT HEPATITIS C AB Non-Reactive Nonreactive ML Non Reactive: < 0.8 Equivocal: >/= 0.8 to < 1.0 Reactive: >/= 1.0 The CDC recommends that a reactive/equivocal HCV antibody result be followed up by the HCV Nucleic Acid Amplification test (701918) HEPATITIS B NIYA NOTE [facility] HEPATITIS B NIYA HEP B SURF AG Non-Reactive Nonreactive ML HIV - [facility] NOTE [facility] HIV - WC HIV Non-Reactive Nonreactive ML L509.8000 NOTE [facility] L509.8000 SYPHILIS ABS Non-reactive ML RUBELLA IGG NOTE [facility] RUBELLA IGG RUBELLA IGG Equiv Nonreactive ML Antibody Results Interpretation of Immune Status Non Reactive Presumed Non-Immune Equivocal Equivocal Reactive Presumed Immune PN N [facility]~[address] [place], [address]~ T AND AB SCREEN GEL NEGATIVE ML THYROID STIM HO NOTE [facility] THYROID STIM HO TSH 0.85 uIU/mL 0.358-3.74 ML URINE DRUG SCRE NOTE [facility] URINE DRUG SCRE VISTA UDS PH 6 ML URINE DRUG SCRE AMPHETAMINES NEGATIVE <1000 ng/mL ML URINE DRUG SCRE BARBITIURATES NEGATIVE < 200 ng/mL ML URINE DRUG SCRE BENZODIAZIPINE NEGATIVE < 200 ng/mL ML URINE DRUG SCRE COCAINE NEGATIVE < 300 ng/mL ML URINE DRUG SCRE ECSTACY NEGATIVE < 500 ng/mL ML URINE DRUG SCRE METHADONE NEGATIVE < 300 ng/mL ML URINE DRUG SCRE OPIATES NEGATIVE < 300 ng/mL ML URINE DRUG SCRE PCP NEGATIVE < 25 ng/mL ML URINE DRUG SCRE THC NEGATIVE < 50 ng/mL ML URINALYSIS, ROU NOTE [facility] URINALYSIS, ROU COLOR Yellow Yellow ML URINALYSIS, ROU URINE CLARITY Clear Clear ML URINALYSIS, ROU GLUCOSE, UR Normal mg/dl Normal ML URINALYSIS, ROU BILIRUBIN URINE Negative mg/dL Negative ML URINALYSIS, ROU KETONE UR Negative mg/dl Negative ML URINALYSIS, ROU SP.GR. DIPSTX 1.005 1.002-1.030 ML URINALYSIS, ROU PH UR 7.0 5.0 - 8.0 ML URINALYSIS, ROU PROT DIPSTX Negative mg/dl Negative ML URINALYSIS, ROU UROBILI Normal mg/dl Normal ML URINALYSIS, ROU NITRITE Negative Negative ML URINALYSIS, ROU OCCULT BLOOD-UR Negative /ul Negative ML URINALYSIS, ROU LEUK ESTERASE Negative /ul Negative ML CBC W/DIFF, AUT NOTE [facility] CBC W/DIFF, AUT WBC 8.5 K/mm3 4.4-11.0 ML CBC W/DIFF, AUT RBC 4.13 M/mm3 4.2-5.4 L ML CBC W/DIFF, AUT HGB 12.1 g/dL 12.0-15.0 ML CBC W/DIFF, AUT HCT 36.5 37-47 L ML CBC W/DIFF, AUT MCV 88.4 fL 81-99 ML CBC W/DIFF, AUT MCH 29.3 pg 27.0-32.0 ML CBC W/DIFF, AUT MCHC 33.2 g/dL 32-36 ML CBC W/DIFF, AUT RDW CV 12.6 11.6-14.6 ML CBC W/DIFF, AUT RDW SD 41.2 fl 35.1-43.9 ML CBC W/DIFF, AUT PLT 331 K/mm3 150-450 ML CBC W/DIFF, AUT MPV 9.7 fl 6.2-12.0 ML CBC W/DIFF, AUT NEUT% 60.4 47-70 ML CBC W/DIFF, AUT LY% 31.2 19-41 ML CBC W/DIFF, AUT MONO% 7.1 0-10 ML CBC W/DIFF, AUT EO% 0.7 0-5 ML CBC W/DIFF, AUT BASO% 0.4 0-1 ML CBC W/DIFF, AUT IG% 0.200 0.0-0.9 ML IG% - Immature Granulocytes (promyelocytes, myelocytes and metamyelocytes) > 1% indicates that a LEFT SHIFT is Present. CBC W/DIFF, AUT ABSOLUTE NEUT 5.1 X10 3/uL 2.0-7.7 ML CBC W/DIFF, AUT ABSOLUTE LYMPH 2.65 X10 3/uL 0.83-4.51 ML CBC W/DIFF, AUT NUCLEATED RBC 0 0-5 ML *Negative results from patients with symptom onset beyond five days should be treated as presumptive and confirmed by a molecular assay if clinically necessary. Negative results should not be used as the sole basis for treatment or for patient management. SARS-CoV-2 Ag Resp Ql IA.rapid *Positive results do not differentiate between SARS-CoV and SARS-CoV-2. If differentation of the specific SARS virus is desired an additional sample and an additional order is required. SARS-CoV-2 Ag Resp Ql IA.rapid * This test has not been FDA cleared or approved; the test has been authorized by FDA under an Emergency Use Authorization (EAU) for use by laboratories certified under CLIA that meet the requirements to perform moderate, high, or waived complexity tests. SARS-CoV-2 Ag Resp Ql IA.rapid Normal Reference Range: Negative SARS-CoV-2 (COVID 19) Negative RAPID METHOD Quidel Nelly Analyzer LISA A POSITIVE Group B Beta Streptococcus is not isolated. Culture exhibits no growth. A POSITIVE Assessment & Plan (1) 36 weeks gestation of : PLAN: hx prior Classical section Plan for repeat section with bilateral salpingectomy (2) Encounter for sterilization: PLAN: Tubal consents signed and reviewed
[2022-02-18] MEDS: Cefazolin 2 GM in 0.9% Normal Saline 100 ML IV (07:28)
--- NOTE | 2022-02-18 08:20 | FALS_PTH ---
PATIENT: LAURA WHITESIDE LOC: [facility] U#:[id number] AGE/SX: 36/F [facility]: Dr. Rosario Benton MD : 1985 BED: 1 DIS: 02/19/2022 SPEC #: [id number] RECD: 02/18/22 10:15 STATUS: KERRY ARMENDARIZAlec #: [id number] LEONARD: 02/18/22 08:[address]: Rosario Montoya DEPT: SURGICAL PATHOLOGY RECD BY: Leela Howell Tissues: Fallopian tube Procedures: Surgery Specimen Level II HEADER OPERATION: Tubal ligation PRE-OP DIAGNOSIS: Sterilization TISSUE SUBMITTED: Fallopian tubes, suture in right tube MICROSCOPIC DIAGNOSIS Bilateral fallopian tubes, salpingectomy: Bilateral fallopian tubes, no pathologic diagnosis. Right paratubal cyst. See comment. JOYCELYN:antoine 02/21/2022 COMMENT The right fallopian tube also shows focal decidual changes. MICROSCOPIC DESCRIPTION Slides are reviewed. GROSS DESCRIPTION Received in fixative is one container labeled with the patient's name and designated bilateral fallopian tubes, suture in right tube. The specimen consists of bilateral fallopian tubes including fimbrial ends. The right fallopian tube measures 9.5 cm in length and 0.6 cm in diameter and left fallopian tube measures 10 cm in length and 0.5 cm in diameter. The right fallopian tube shows a paratubal cyst measuring 0.5 cm in greatest dimension. Physician Primary Care Sports Medicine sections are submitted in two cassettes as follows: 1 - right fallopian tube and paratubal cyst, 2 - left fallopian tube. / SJ:rg 02/18/2022 TC:5 CPT: 04137 x2
--- NOTE | 2022-02-18 08:41 | EX.PCM.OBRPT ---
Assessment & Plan (1) Encounter for sterilization: (2) 36 weeks gestation of : Maternal Data Information MOO Calculator Estimated Delivery Date Method Current WG Current Estimate 03/15/22 LMP (Certain) 36w 3d Details Operative Information Date of Procedure: 02/18/22 Pre-Operative Diagnosis: 1. 36-3/7 weeks gestational age 2. History 2 prior sections 3. History of prior classical section 4. Request tubal sterilization Post-Operative Diagnosis: 1. 36-3/7 weeks gestational age 2. History 2 prior sections 3. History of prior classical section 4. Request tubal sterilization Indications for : Repeat Elective and Desires elective sterilization Indications Narrative: 36-year-old 5 para 3-1-0-4 at 36-3/7 weeks gestational age presents for scheduled repeat section. She has history of prior classical section. She desired tubal sterilization was counseled regarding procedural risks, benefits, indications and alternatives. She opted to proceed with section and bilateral salpingectomy. 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 She is placed in a dorsal supine position with left lateral tilt. The perineum and abdomen were prepped and draped in sterile fashion. And the spinal was found to be adequate. A Pfannenstiel incision was made using a scalpel and brought down to incise the subcutaneous tissue and rectus fascia at the midline. Subcutaneous tissue was bluntly dissected off the fascia laterally. The fascial incision was dissected laterally and cephalad using curved Cotto scissors. The superior leaflet of the rectus fascia was grasped using Grey clamps and bluntly dissected and sharply dissected from the underlying rectus muscle. In a similar fashion the inferior rectus fascia was dissected from the underlying muscle. The rectus muscles were bluntly at the midline. The peritoneum was identified and entered [sharply]. The bladder blade was placed into the abdomen and the vesicouterine peritoneal fold identified with significant bladder adhesion to the anterior uterus. Adhesiolysis was performed with reflection of the vesicouterine peritoneal fold and bladder flap created. Bladder blade was then repositioned to the abdomen. A low transverse hysterotomy was made using the [Metzenbaum scissors] to level of the membranes. The hysterotomy was extended bluntly cephalad and caudad. The membranes were then ruptured revealing clear fluid. The head was elevated and brought to the level of the hysterotomy and the infant delivered revealing vigorous [female] . The cord was doubly clamped and cut after 30 seconds. The was passed to awaiting [nursery personnel]. The placenta was [expressed] from the uterus and appeared intact on inspection. The uterus was exteriorized and cleared of debris. The hysterotomy was then repaired using 0 Vicryl running lock suture. A single [id number] 0 Vicryl was placed for additional hemostasis with hemostasis obtained. The right tubal fimbria was identified and salpingectomy performed using the LigaSure device to electrocoagulate and transect tube from the mesosalpinx to the level of the uterine cornua. In similar fashion left salpingectomy was also performed after identifying the left tubal fimbria. The uterus and adnexa were returned to the abdomen. The hysterotomy was again inspected and appeared hemostatic. The bladder blade was removed. The anterior cul-de-sac was cleared of debris. The peritoneum was reapproximated using 2-0 Vicryl running suture. The rectus fascia was closed using 0 strata fix running suture. The subcutaneous tissue was reapproximated using 2-0 Vicryl. The skin was closed using 4-0 Monocryl subcuticularly by the [employer] under my supervision. Mepilex occlusive dressing was placed over the incision. The fundus was firm. The patient was then transferred to the recovery room without complication. Sponge, instrument, and needle counts were correct ?2. Presentation: Positive for Vertex Amniotic Membrane Rupture Type: Artificial Amniotic Fluid Description: Clear Placental Delivery Description: Expressed Placenta Disposition: [facility] Cord Vessel Description: 3 Vessels Cord Entanglement: None A Gender: Female (1 minute): 8 (5 minute): 9 Delayed Cord Clamping: Yes Complications Risks of Surgery Discussed w/Patient: Bleeding, Anesthesia Risks, Infection, Need for Future C-Sections, Permanency, Failure Rate of 1 to 2%, Injury to surrounding structure(s) including bowel and bladder, Availability of other non-permanent control options and -
[2022-02-18] MEDS: Oxytocin 30 units/NS 500 ml 30 UNITS/500 ML IV.SOLN 167 UNITS IV (09:18)
[2022-02-18] MEDS: Ketorolac 30 MG/ML Syringe IV ×3 (09:18→21:50)
[2022-02-18] MEDS: Lactated Ringers 1,000 ML 100 ML IV (12:25)
[2022-02-18] MEDS: oxyCODONE 5 MG Tablet PO ×3 (13:32→23:21)
[2022-02-18] MEDS: Senna/Docusate Sodium 1 Tablet PO (13:33)
[2022-02-18] MEDS: 0.9% Saline Lock 10 ML Syringe IV (21:50)
[2022-02-19 01:00] VITALS: BP 125/76; PULSE 79; RESP 16; TEMP 36.1; O2SAT 95
[2022-02-19] MEDS: Acetaminophen 500 MG Tablet 1000 MG PO ×3 (01:18→12:20)
[2022-02-19] MEDS: Ketorolac 30 MG/ML Syringe IV (03:31)
[2022-02-19] MEDS: 0.9% Saline Lock 10 ML Syringe IV (03:32)
[2022-02-19 04:15] VITALS: BP 106/56; PULSE 87; RESP 16; TEMP 36.9; O2SAT 95
[2022-02-19] MEDS: oxyCODONE 5 MG Tablet PO ×2 (05:40→10:40)
[2022-02-19 05:53] LABS: Hematocrit 35.2 % (37-47); Hemoglobin 11.5 g/dL (12.0-15.0); Mean Corp Hgb Conc 32.7 g/dL (32-36); Mean Corpuscular Hgb 30.9 pg (27.0-32.0); Mean Corpuscular Volume 94.6 fL (81-99); Mean Platelet Vol. 10.6 fl (6.2-12.0); Platelet Count 205 K/mm3 (150-450); RBC Distribution Width CV 13.4 % (11.6-14.6); RBC Distribution Width SD 46.3 fl (35.1-43.9); Red Blood Count 3.72 M/mm3 (4.2-5.4); White Blood Count 15.3 K/mm3 (4.4-11.0)
[2022-02-19 09:17] VITALS: BP 117/81; PULSE 87; RESP 16; TEMP 36.2; O2SAT 95
--- NOTE | 2022-02-19 09:20 | PCM.PN.OB ---
Subjective Subjective Patient without complaints. Tolerating diet well. Positive flatus. Minimal vaginal bleeding reported. Wants to go home today if baby is able to go. Objective Data Objective Data Vital Signs: Vital Signs Temp Pulse Resp BP Pulse Ox 97.1 F L 87 16 117/81 H 95 02/19/22 09:17 02/19/22 09:17 02/19/22 09:17 02/19/22 09:17 02/19/22 09:17 Oxygen Delivery Method Room Air Weight: 197 lb Body Mass Index (BMI) 36.0 Intake & Output: Intake and Output for Last 24 Hours 02/17/22 02/18/22 02/19/22 23:59 23:59 23:59 Intake Total 2253.33 / 2253.33 Output Total 850 / 850 Balance 1403.33 / 1403.33 Lab / Micro Data Result Diagrams: 02/19/22 05:45 Labs: Laboratory Results - last 24 hr 02/19/22 05:45: WBC 15.3 H, RBC 3.72 L, Hgb 11.5 L, Hct 35.2 L, MCV 94.6, MCH 30.9, MCHC 32.7, RDW Std Deviation 46.3 H, RDW Coeff of Indra 13.4, Plt Count 205, MPV 10.6 Micro: Microbiology 02/18/22 06:05 Nasal Secretion SARS-CoV-2 Antigen (Rapid) - Final Assessment & Plan (1) H/O section: PLAN: Doing well postoperative day #1 status post repeat . Will discharge to home with routine instructions if baby is able to go.
--- NOTE | 2022-02-19 09:22 | PCM.DC ---
Discharge Instructions Diet Discharge Diet: No restrictions Activity May resume sexual activity in: 4-6 weeks Lifting Restrictions: 20 pounds Dressing / Incision Call your doctor if your incision/area has: Continuous Slow Oozing, Sudden Increased Bleeding, Increased Pain/ Swelling, Increased Redness and Foul Smelling Discharge Call your doctor if you observe: Fever of 101 or Higher, Inability to urinate, Inability to have a bowel movement and Using more than 1 pad per hour Follow Up Care Please Follow Up With: Rosario Montoya MD When: Call [phone] for appointment to be seen in 2 weeks. Test Results: Test results from this visit will be discussed in further detail at your follow-up appointment, if applicable. Discharge Plan Admission Admit Date/Time: 02/18/22 05:15 Primary Reason for Your Visit: delivery, tubal sterilization Attending Provider: Rosario Montoya Discharge Orders/Prescriptions Prescriptions: New oxycodone 5 mg capsule 5 mg PO Q6H PRN (Reason: pain) 7 Days Qty: 20 RF: 0 Continued omeprazole 20 MG capsule 40 mg PO QHS RF: 0 multivitamin 1 EACH tablet 1 ea PO DAILY RF: 0 Disposition Disposition (needs filled in before D/C Order can be placed): Home, Self Care
[2022-02-19] MEDS: Ibuprofen 600 MG Tablet PO (09:33)
[2022-02-19] MEDS: Senna/Docusate Sodium 1 Tablet PO (10:40)
[2022-02-22 07:51] LABS: Pathology Specimen OB SEE PATHOLOGY REPORT
== END 2022-02-19 14:30 | disposition home or self-care (01) | DRG 539 ==
PROVIDERS: Admitting Provider Obstetrics & Gynecology; Visit Provider Obstetrics & Gynecology
PROC: 0UT70ZZ Resection of Bilateral Fallopian Tubes, Open Approach (ICD-10-PCS; CPT 59514; principal; 2022-02-18 07:15)
DX: O34.212 Maternal care for vertical scar from previous cesarean delivery (principal); H90.42 Sensorineural hearing loss, unilateral, left ear, with unrestricted hearing on the contralateral side; Z30.2 Encounter for sterilization; Z37.0 Single live birth; Z3A.36 36 weeks gestation of pregnancy; O99.892 Other specified diseases and conditions complicating childbirth
CPT/HCPCS: 59050; 85025; 85027; 86850; 86900; 86901; 87426; 88302; 99218; J7120; A4216; G0378; J2405; J3490

== ENCOUNTER → 2023-12-20 | Outpatient (CLI) | payer MEDICAID, SELFPAY ==
--- NOTE | 2023-12-20 09:33 | US_ITS ---
STUDY: ULTRASOUND BREAST - RIGHT REASON FOR EXAM: Female, 37 years old. Right breast pain. TECHNIQUE: Axial and longitudinal images of the RIGHT breast were performed with a high resolution ultrasound transducer. # OF IMAGES: 39 COMPARISON: Comparison is made with prior mammogram dated December 20, 2023 and prior sonogram of the right breast dated February 14, 2019. FINDINGS: RIGHT Breast: There is a 5 mm x 5 mm x 3 mm cyst at the 12:00 position in the breast at 3 cm from the nipple. This has decreased in size as compared to prior study. There is also evidence of dilated retroareolar ducts. US/Breast Limited Unilateral IMPRESSION: Dilated retroareolar ducts. 5 mm x 5 mm x 3 mm cyst at the 12:00 position of the breast at 3 cm from the nipple. This has decreased in size as compared to prior study. ASSESSMENT CATEGORY: BIRADS Category 2: Benign. A letter regarding these results will be sent to the patient by the facility within 30 days. Electronically Signed: Carlos Manuel Ryan MD at 15:39 EST ,
--- NOTE | 2023-12-20 09:33 | BI_ITS ---
MAMMOGRAPHY - BILATERAL DIAGNOSTIC REASON FOR EXAM: Female, 37 years old. Two-month history of right breast pain at 12:00 position. PERTINENT HISTORY: PICC line TECHNIQUE: Digital bilateral breast kalpana (3D mammographic acquisition) in the CC and MLO projections. 2-D mediolateral oblique (MLO) and craniocaudad (CC) views of both breasts were obtained. CAD: Full Field Digital Mammography with Computer Added Detection was performed. COMPARISON: Comparison is made with prior study dated February 14, 2019. FINDINGS: Breast Composition: The breasts are extremely dense, which lowers the sensitivity of mammography. There are no dominant masses or suspicious calcifications. No other significant abnormalities are identified. There has been no significant change since the prior study. BI/DIAG MAMM W/CAD, BILAT IMPRESSION: Stable bilateral diagnostic mammogram. With the patient''s history of right breast pain, targeted ultrasound is recommended. ASSESSMENT CATEGORY: BIRADS Category 0: Incomplete. Need additional imaging evaluation. A letter regarding these results will be sent to the patient by the facility within 30 days. Approximately 10% of breast cancers are not detected by mammography. A normal mammogram should not delay biopsy of a clinically suspicious abnormality. Electronically Signed: Carlos Manuel Ryan MD at 13:24 EST ,
--- NOTE | 2023-12-20 09:35 | US_ITS ---
INDICATION: Premenopausal abnormal uterine bleeding. EXAMINATION: Ultrasound US Transvaginal Non-OB TECHNIQUE: Transvaginal (for optimal evaluation of the adnexa) pelvic ultrasound was performed. Grayscale, spectral waveform, and color flow Doppler evaluation of the adnexa. COMPARISON: No relevant prior comparison study available FINDINGS: UTERUS: Retroverted. The uterus measures 8.4 x 6.3 x 4.6 cm. There is no uterine mass. The endometrial stripe measures 4 mm in AP diameter which is within normal limits. RIGHT OVARY: The right ovary measures 2.6 x 1.8 x 1.6 cm. Non-enlarged, normal echogenicity. There is normal arterial inflow and venous outflow present in the right ovary. LEFT OVARY: The left ovary measures 2.7 x 1.7 x 1.6 cm. Non-enlarged, normal echogenicity. There is normal arterial inflow and venous outflow present in the left ovary. FREE FLUID: None. US/Transvaginal Non- IMPRESSION: Unremarkable pelvic ultrasound. Electronically Signed: Markos Marinelli MD at 11:04 EST ,
--- OUTSIDE RECORDS SUMMARY | 2023-12-20 09:49 | XMS RPT_ITS | CCD ---
Author Name Unknown Address [address] [place] [address] Organization [facility] Care Team Providers Care Asset Availability Leader Name Role Phone Rosario Montoya Unavailable Khang Morrison Primary Care Provider Brianne Bynum Primary Care Provider Khang Morrison Primary Care Provider Seda Benton MD, Rosario Rox Unavailable [phone] No, Physician Primary Care Provider UnavailRosario Moore MD Rox Unavailable No, Physician Primary Care Provider UnavailKhang Orantes MD Primary Care Provider Khang Morrison MD Primary Care Provider Brianne Bynum MD Primary Care Provider Daniele PERSHING MISSILE CREWMEMBERLeslie Primary Care Provider Randolph PERSHING MISSILE CREWMEMBERGhazal Primary Care Provider Leslie Sanabria CNP Primary Care Provider NO, PHYSICIAN Primary Care Unavailable BRIDGER HOLLINGSWORTH JR. Attending Unavailable EMI PEÑA Attending Unavailable LESLIE SANABRIA Referring Unavailable LESLIE SANABRIA Primary Care Unavailable LESLIE SANABRIA Admitting Unavailable NO, PHYSICIAN Primary Care Unavailable BRIDGER HOLLINGSWORTH JR. Attending Unavailable Allergies Allergy Classification Reported Allergen(s) Allergy Type Date of Onset Reaction(s) Facility (12 sources) Morphine; Translations: [MORPHINE] Drug Allergy 06-14-2016 [facility] (8 sources) Sulfonamides (Antibiotic); Translations: [SULFA (SULFONAMIDE ANTIBIOTICS)] Propensity to adverse reactions to drug 03-09-2021 Hives, Rash [facility] Medications Current Medications Medication Drug Class(es) Dates Sig (Normalized) Sig (Original) 24 hr buPROPion hydrochloride 150 mg extended release oral tablet (4 sources) Aminoketone Start: 10-27-2023 End: 01-25-2024 take 31-31.9 tablets by mouth once daily buPROPion (WELLBUTRIN XL) 150 MG 24 hr tablet Indications: Class 1 obesity due to excess calories without serious comorbidity with body mass index (BMI) of 31.0 to 31.9 in adult Take 1 (one) tablet (150 mg total) by mouth daily . 90 tablet 0 10/27/2023 01/25/2024 Active Completed/Discontinued Medications Medication Drug Class(es) Dates Sig (Normalized) Sig (Original) amLODIPine 5 mg oral tablet (4 sources) Dihydropyridine Calcium Channel Daisy Start: 03-07-2018 End: 01-02-2019 take 0.5 tablet by mouth once daily amLODIPine (NORVASC) 5 MG tablet TAKE 1/2 TABLET BY MOUTH DAILY 30 tablet 10 03/07/2018 01/02/2019 Discontinued Problems Active Problems Problem Classification Problem Date Documented Date Episodic/Chronic Disorders of teeth and jaw (4 sources) Jaw pain; Translations: [Jaw pain] Onset: 11-01-2023 11-01-2023 Episodic Esophageal disorders (12 sources) Gastroesophageal reflux disease; Translations: [Gastro-esophageal reflux disease without esophagitis] Onset: 03-06-2017 03-06-2017 Chronic Headache; including migraine (12 sources) Migraine; Translations: [Migraine with aura] Onset: 06-14-2016 06-14-2016 Chronic Other connective tissue disease (4 sources) Pain in left foot; Translations: [Pain in left foot] Episodic Other connective tissue disease (4 sources) Plantar fasciitis of left foot; Translations: [Plantar fascial fibromatosis] Episodic Other ear and sense organ disorders (3 sources) Hearing loss of left ear; Translations: [Profound hearing loss of left ear] Chronic Other upper respiratory disease (12 sources) Allergic rhinitis; Translations: [Allergic rhinitis, unspecified] Onset: 06-14-2016 06-14-2016 Chronic Thyroid disorders (11 sources) Multinodular goiter; Translations: [Nontoxic multinodular goiter] Onset: 06-14-2016 06-14-2016 Chronic Unclassified (3 sources) Patient encounter status; Translations: [Well woman exam] Onset: 03-06-2017 03-06-2017 Past or Other Problems Problem Classification Problem Date Documented Da te Episodic/Chronic Administrative/social admission (2 sources) Medical examinations/report s status; Translations: [Well woman exam] Onset: 03-06-2017 03-06-2017 Episodic Other connective tissue disease (2 sources) Plantar fascial fibromatosis; Translations: [Plantar fascial fibromatosis] Onset: 12-09-2022 Episodic Other connective tissue disease (2 sources) Pain in left foot; Translations: [Pain in left foot] Onset: 12-09-2022 Episodic Residual codes; unclassified (11 sources) Family history of aneurysm of artery; Translations: [Family history of ischemic heart disease and other diseases of the circulatory system] Onset: 12-07-2016 12-07-2016 Episodic Results Test Name Value Interpretation Reference Range Facil ity Vital Signs Date Time Vital Sign Value Performing Clinician Nav barlow 12-09-2022 09:43-0500 Body temperature 97.3 [degF] Bridger Hollingsworth Jr., DPM Work Phone: [facility] 12-09-2022 09:43-0500 Diastolic blood pressure 87 mm[Hg] Bridger Hollingsworth Jr., DPM Work Phone: [facility] 12-09-2022 09:43-0500 Heart rate 102 /min Bridger Hollingsworth Jr., DPM Work Phone: [facility] 12-09-2022 09:43-0500 Systolic blood pressure 129 mm[Hg] Bridger Hollingsworth Jr., DPM Work Phone: [facility] 09-23-2022 10:16-0400 Body temperature 97.5 [degF] Bridger Hollingsworth Jr., DPM Work Phone: [facility] 09-23-2022 10:16-0400 Diastolic blood pressure 84 mm[Hg] Bridger Hollingsworth Jr., DPM Work Phone: [facility] 09-23-2022 10:16-0400 Heart rate 108 /min Bridger Hollingsworth Jr., DPM Work Phone: [facility] 09-23-2022 10:16-0400 Systolic blood pressure 121 mm[Hg] Bridger Hollingsworth Jr., DPM Work Phone: [facility] 08-26-2022 09:52-0400 Body temperature 98.49 [degF] Bridger Hollingsworth Jr., DPM Work Phone: [facility] 08-26-2022 09:52-0400 Diastolic blood pressure 73 mm[Hg] Bridger Hollingsworth Jr., DPM Work Phone: [facility] 08-26-2022 09:52-0400 Heart rate 130 /min Bridger Hollingsworth Jr., DPM Work Phone: [facility] Encounters Encounter Date Encounter Type Care Provider Facility Start: 11-01-2023 End: 11-05-2023 ambulatory [facility] Start: 11-01-2023 End: 11-01-2023 Clinical Support Leslie Sanabria CNP Work Phone: [facility] Procedures Date Procedure Procedure Detail Performing Clinician Start: 11-01-2023 Ecg routine ecg w/le ast 12 lds w/i&r Leslie Sanabria CNP Work Phone: Start: 10-27-2023 Adult depression scr eening assessment [facility] Start: 07-15-2022 Radex foot complete minimum 3 views Bridger Hollingsworth DPM Work Phone: Start: 09-18-2020 Adult depression scr eening assessment Bridger Hollingsworth Jr. DPM Work Phone: Start: 12-28-2016 Microscopic observat ion [Identifier] in Cervix by Cyto stain Bess Londono Plan of Treatment Date Care Activity Detail Author Start: 10-26-2025 Tetanus vaccination [facility] Start: 10-27-2024 Depression screening using PHQ-9 (Patient Health Questionnaire 9) score Depression Screening (PHQ-2/9) [facility] Start: 05-26-2024 Influenza vaccination Sequenti al Influenza Vaccine (#1) [facility] Immunizations Immunization Date Immunization Notes Care Provider Kristan nielsen 03-06-2017 tuberculin skin test ; purified protein derivative solution, intradermal [facility] 10-03-2016 tuberculin skin test ; purified protein derivative solution, intradermal [facility] 10-26-2015 tetanus toxoid, redu eric diphtheria toxoid, and acellular pertussis vaccine, adsorbed [facility] 05-12-2011 hepatitis B vaccine, adult dosage Ma morena [facility] 05-12-2011 tetanus toxoid, redu eric diphtheria toxoid, and acellular pertussis vaccine, adsorbed [facility] Payers Date Payer Category Payer Unknown [id number] 2022 Unknown [id number] 2022 Medicaid [id number] 2021 Unknown [id number] 2016 Medicaid [facility] [facility] MEDICAID [employer] xxxxxxxxxxx 2016-Present xxxxxxxxxxx [id number] 2016 Medicaid [id number] 1999 Medicaid [id number] 1987 Unknown [id number] 1987 Unknown [id number] 1987 Unknown [id number] Social History Date Type Detail Facility Start: 12-31-2019 End: 08-26-2022 Tobacco smoking status NHIS Never smoker [facility] Start: 02-19-2019 End: 12-31-2019 Alcohol intake Current non-drinker of alcohol (finding) [facility] Start: 1985 Sex Assigned At Not on file [facility] Start: 10-17-2017 End: 08-26-2022 Tobacco use and exposure Smokeless tobacco non-user [facility] Start: 07-15-2022 End: 10-27-2023 Alcohol intake Ex-drinker (finding) [facility] Start: 07-15-2022 End: 11-03-2022 Alcohol intake [facility] Start: 07-04-2022 End: 12-09-2022 Exposure to SARS-CoV-2 (event) Not sure [facility] Start: 11-03-2022 History SDOH Alcohol Frequency 2 [facility] Start: 11-03-2022 History SDOH Alcohol Std Drinks 1 [facility] Start: 11-03-2022 History SDOH Social Connections Phone 98 [facility] Start: 11-03-2022 History SDOH Social Connections Living 3 [facility] Start: 11-03-2022 End: 10-27-2023 Humiliation, Afraid, Rape, and Kick questionnaire [HARK] [facility] Within the last year , have you been afraid of your partner or ex-partner? No [facility] In a typical week, h ow many times do you talk on the telephone with family, friends, or neighbors? Patient refused [facility] Are you now , , , , never or living with a partner? [facility] How often to you hav e a drink containing alcohol? Monthly or less [facility] How many standard dr inks containing alcohol do you have on a typical day? 1 or 2 [facility] How often do you hav e 6 or more drinks on 1 occasion? Never [facility] How hard is it for y ou to pay for the very basics like food, housing, medical care, and heating Very hard [facility] Do you feel stress - tense, restless, nervous, or anxious, or unable to sleep at night because your mind is troubled all the time - these days [OSQ] To some extent [facility] (I/We) worried wheth er (my/our) food would run out before (I/we) got money to buy more. Never true [facility] In the past 12 month s, was there a time when you were not able to pay the mortgage or rent on time? Yes [facility] Start: 01-02-2019 Gender identity Identifies as female gender (finding) [facility] Start: 01-02-2019 Sexual orientation Heterosexual (gopi laughlin) [facility] Goals Date Patient Goal Desired Activity /State Personal health goal Clinical Notes 03-08-2019 to 11-01-2023 Emi Peña MA - 11/01/2023 10:24 AM Wan Hollingsworth Jr., DPM - 12/09/2022 10:20 AM Wan Hollingsworth Jr., DPM - 09/23/2022 10:27 AM EDAmanda Hollingsworth Jr., DPM - 08/26/2022 10:19 AM EDT Note Date & Type Note Facility 11-01-2023 History of Presen t illness Narrative EKG performed documented in this encounter [facility] 12-09-2022 History of Presen t illness Narrative Left heel pain Patient is a pleasant 36-year-old female who comes in today with continued left heel pain. States that she did with her new inserts but the pain is again returning. -Admits to post attic dyskinesia points to her fascial origin. No new trauma worsening. Physical Vascular: DP PT pulses are easily palpable 2-4. CFT is fair no edema. Derm: No open wounds no ulcers no rashes no deep nodules. Neuro: Light touch is normal Babinski's is normal. Musculoskeletal: Still with much pain to the fascial origin with direct palpation and compression. Ankle subtalar is full and pain-free.. Assessment and plan: Patient is a pleasant 36-year-old female with acute on chronic left foot plantar fasciitis and heel pain. . -did go over options including NSAIDs versus steroids together decided on steroid specifically injectable. Is to reduce the perforation allowed her to heal. Procedure: After timeout consent was performed, and alcohol prep, did inject in classical fashion from medial to lateral approach a combination of 1 cc 0.5% Marcaine plain and 1 cc of triamcinolone 40 mg/mL. Postop bandage applied. Follow-up in 2 months if no better consider MRI to better work differential. Low medical complexity decision making based on chronicity for injection today. documented in this encounter [facility] 09-23-2022 History of Presen t illness Narrative Heel pain Patient is a pleasant 32-year-old female comes in today following up on her heel pain. States that the injection was tremendously for her pain is essentially gone though she does have some mild tightness still. She bioptic additionally has down titrated from her cam boot. Physical Vascular: DP pulses are easily palpable 2-4. CFT is fair no edema. Derm no open wounds no ulcers no rashes no deep nodules. Neuro: Light touch is normal Babinski's normal. Musculoskeletal: Muscle strength is 5/5 with fair tone. The wiggle toes. No fascial pain today with compression there is some tightness across the activation in this mechanism. Assessment and plan: Patient is a pleasant 36-year-old male with left foot plantar fasciitis and heel spur syndrome with generalized pain. -Did no repeat steroids required given her tremendous improvement and additionally can continue to down titrate from her cam to tennis shoes. -She does however require a set of custom functional orthotics to her hindfoot which are medically necessary. -The patient's anatomy is not amenable to an [id number] device or prefabricated device and requires a custom device 1 pair of custom functional orthotics with soft top-cover bilateral first MPJ cut out Follow-up in 1 to 2 years for an updated orthotic prescription. Low medical complexity decision due to the subchronic nature. documented in this encounter [facility] 08-26-2022 History of Presen t illness Narrative Left heel pain Patient is a pleasant 36-year-old female who comes in today with continued left heel pain. States that she did wear well her cam boot however she is getting tired of this. Its slow cumbersome and tedious. 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 Still with continued pain approximately 50% as bad as prior. Physical Vascular: DP PT pulses are easily palpable 2-4. CFT is fair no edema. Derm: No open wounds no ulcers no rashes no deep nodules. Neuro: Light touch is normal Babinski's is normal. Musculoskeletal: Still with much pain to the fascial origin with direct palpation and compression. Ankle subtalar is full and pain-free.. Assessment and plan: Patient is a pleasant 36-year-old female with acute on chronic left foot plantar fasciitis and heel pain. Okay to down titrate from cam boot. 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 Is to reduce the perforation allowed her to heal. Procedure: After timeout consent was performed, and alcohol prep, did inject in classical fashion from medial to lateral approach a combination of 1 cc 0.5% Marcaine plain and 1 cc of triamcinolone 40 mg/mL. Postop bandage applied. Follow-up in 1 month if not fully resolved could consider transitioning into custom functional orthotics for maintenance. documented in this encounter [facility] 07-15-2022 History of Presen t illness Narrative Left heel pain Patient is a pleasant 36-year-old female who comes in today with her new baby with left heel pain. States is been going on now for about 6 weeks or so. Mid to post attic dyskinesia declines any trauma. Has tried resting but no Physical Vascular: DP PT pulses are easily palpable 2-4. CFT is fair no edema. Derm: No open wounds no ulcers no rashes no deep nodules. Neuro: Light touch is normal Babinski's is normal. Musculoskeletal: Muscle strength is 5/5 with fair tone. Can easily toes that any clicking or catching. Substantial pain to the left fascial origin less so with calcaneal squeeze and no Achilles pain. X-rays reviewed consistent with plantar fascial edema though no fracturing present no spurring present. Assessment and plan: Patient is a pleasant 36-year-old female with acute plan fasciitis left heel. -Today did prescribe dispense and fit her with a cam boot which is medically necessary to mobilize her fascial swelling. Can take this for sleep rest and shower.Patient was ambulatory prior to this incident and is expected to regain ambulatory status after complete healing of injury. -If no better next month as she finishes breast-feeding will need a steroid injection triamcinolone. Low medical complexity decision making. documented in this encounter [facility] 03-08-2019 Telephone encounter Note Form atting of this note might be different from the original. She was just seen. This does not need addressed any further. We started her on a new medication. [facility] 03-08-2019 Miscellaneous Notes Formattin g of this note might be different from the original. She was just seen. This does not need addressed any further. We started her on a new medication. documented in this encounter [facility] Diagnosis Plantar fasciitis of left foot- Primary Left foot pain Pain in soft tissues of limb [facility] Diagnosis Plantar fasciitis of left foot- Primary Left foot pain Pain in soft tissues of limb [facility] Diagnosis Jaw pain documented in this encounter [facility] Reason for Referral Status Reason Specialty Diagnoses / Procedures Referred By Contact Referred To Contact Closed Specialty Services Required/Patie nt's Best Interest Audiology / Otolaryngology Diagnoses Hearing loss of left ear, unspecified hearing loss type Lacy Arellano CNP [address] [place] [address] Brianne Davey AuD [address] [place] [address] History of Present Illness * Lacy Arellano CNP - 12/31/2019 11:25 AM EST ENT New Patient Visit Patient Name: Laura Helms MR #: [id number] : 1985 Physicians: Khang Morrison MD (Family); Khang Morrison MD (Referring) Chief Complaint/Reason for Visit: Hearing loss left ear History of Present Illness: Laura Helms is a 34 y.o. y/o female presenting from her primary care provider with c/o hearing loss left ear. Patient reports she has been deaf in her left ear since childhood. States she is not sure if she was born deaf or she became deaf due to history of frequent ear infections as a child. She denies everhaving ear tubes, surgery to the ears, loud noise exposure, trauma to the ears or family history ofhearing loss. She denies any current ear pain, pressure or drainage from the ears. Reports she getsoccasional right-sided ear pressure, pain, cracking and popping in the right ear that comes & goes. States she has occasional nasal congestion sinus pressure and postnasal drainage. Denies any medical management for her symptoms. Denies any recent fevers or infections. She would like to have her hearing loss evaluated to see if anything further can be done to help her. History: Past Medical History: Diagnosis Date Migraines Moderate cervical dysplasia Info Gained From:[facility] --- Rosario Bess MD Past Surgical History: Procedure Laterality Date SECTION, CLASSIC GANGLION CYST EXCISION Right 2010 right wrist Family History Problem Relation Age of Onset Aneurysm Mother Aneurysm Maternal Grandmother Aneurysm Cousin Social History Socioeconomic History Marital status: Single Spouse name: Not on file Number of children: Not on file Years of education: Not on file Highest education level: Not on file Occupational History Not on file Social Needs Financial resource strain: Not on file Food insecurity Worry: Not on file Inability: Not on file Transportation needs Medical: Not on file Non-medical: Not on file Tobacco Use Smoking status: Never Smoker Smokeless tobacco: Never Used Substance and Sexual Activity Alcohol use: No Alcohol/week: 0.0 standard drinks Drug use: No Sexual activity: Yes Lifestyle Physical activity Days per week: Not on file Minutes per session: Not on file Stress: Not on file Relationships Social connections Talks on phone: Not on file Gets together: Not on file Attends nondenominational service: Not on file Active member of club or organization: Not on file Attends meetings of clubs or organizations: Not on file Relationship status: Not on file Other Topics Concern Not on file Social History Narrative Not on file Allergy Information: I have reviewed the patient's allergies. Morphine Home Medications: Outpatient Medications as of 2019 Order #: [id number]: Normal Order #: [id number]: Historical Med Order #: [id number]: Historical Med ROS: Review of Systems Constitution: Negative for chills, fever and malaise/fatigue. HENT: Positive for congestion (mild) and hearing loss (left sided hearing loss since childhood, perpatient either born deaf or became due to frequent ear infections as a child). Negative for ear discharge, ear pain, nosebleeds, sore throat and tinnitus. Occasional nasal congestion, sinus pressure and postnasal drainage. Right ear pressure, occasional cracking and popping in the right ear that comes and goes denies anycurrent ear pain Eyes: Negative for discharge, pain, photophobia and redness. Cardiovascular: Negative for chest pain, leg swelling, near-syncope and syncope. Respiratory: Negative for cough, shortness of breath, sleep disturbances due to breathing and snoring. Endocrine: Negative for cold intolerance and heat intolerance. Hematologic/Lymphatic: Negative for adenopathy and bleeding problem. Does not bruise/bleed easily. Skin: Negative for color change, dry skin, itching and rash. Musculoskeletal: Negative for falls, joint swelling, muscle cramps and muscle weakness. Gastrointestinal: Negative for nausea and vomiting. Neurological: Positive for headaches ( Patient suffers from migraines and takes Imitrex as needed approximately 10-12 times per month). Negative for dizziness, light-headedness, loss of balance, numbness, seizures, tremors, vertigo and weakness. Psychiatric/Behavioral: Negative for altered mental status and substance abuse. The patient is not nervous/anxious. Allergic/Immunologic: Negative for environmental allergies and persistent infections. Physical Examination: Vital Signs: BP 122/81 Pulse (!) 102 Temp 98.8 F (37.1 C) Resp 18 Ht 5' 3 Wt 80.2 kg (176 lb 12.8 oz) SpO2 99% BMI 31.32 kg/m Physical Exam Constitutional: She is oriented to person, place, and time and well-developed, well-nourished, and in no distress. Vital signs are normal. She appears healthy. She does not have a sickly appearance. No distress. HENT: Head: Normocephalic and atraumatic. Right Ear: Hearing, tympanic membrane, external ear and ear canal normal. No drainage, swelling or tenderness. No foreign bodies. No mastoid tenderness. No middle ear effusion. No decreased hearing is noted. Left Ear: Tympanic membrane, external ear and ear canal normal. No drainage, swelling or tenderness. No foreign bodies. No mastoid tenderness. No middle ear effusion. Decreased hearing is noted. Nose: Mucosal edema (mild ) and rhinorrhea present. No nose lacerations, sinus tenderness, nasal deformity or septal deviation. Right sinus exhibits no maxillary sinus tenderness and no frontal sinustenderness. Left sinus exhibits no maxillary sinus tenderness and no frontal sinus tenderness. Mouth/Throat: Uvula is midline, oropharynx is clear and moist and mucous membranes are normal. No oropharyngeal exudate. Eyes: Right eye exhibits no discharge. Left eye exhibits no discharge. Neck: Trachea normal. No tracheal deviation present. No thyroid mass and no thyromegaly present. Lymphadenopathy: Head (right side): No submental and no submandibular adenopathy present. Head (left side): No submental and no submandibular adenopathy present. She has no cervical adenopathy. Neurological: She is alert and oriented to person, place, and time. Gait normal. GCS score is 15. Skin: Skin is warm and dry. She is not diaphoretic. Procedure: Bilateral micro-otoscopy was used to rule out any middle ear translucent pathology. There is good light reflex and good movement with auto insufflation bilaterally. There are no signs of fluid, tympanic membrane perforation, cholesteatoma or any other acute or chronic pathology to bilateral ears. Audiometry: normal hearing thresholds in the right ear Profound hearing loss in the left ear Tympanometry: Right: Type A Left: Type A Assessment and Plan: Laura Helms is a 34 y.o. y/o female presenting with left sided hearing loss. Upon physical exam with micro-otoscopy was noted be good light reflex and good movement sensation to bilateral tympanic membranes. There are no signs of fluid, tympanic membrane perforation, cholesteatoma or any other acute or chronic pathology to bilateral ears. Audiometry was performed which revealed normal hearing thresholds in the right ear and profound hearing loss in the left ear. Tympanometry reveals type A bilaterally. Based upon recent audiogram patient would be a good candidate for cochlear versus left-sided Baha hearing amplification. She was provided education, & informative booklets about both procedures, and hearing devices. Patient would like some time to read over all the information and to discuss it with her family, and insurance company to assess for coverage, before deciding what she would like to do. Patient has symptoms of underlying allergies and right ear pressure that comes and goes. She will be started on a trial of Claritin and Flonase daily to see if symptoms improve. Patient was offered a follow-up appointment. She would like to review all the information and call in for a follow-up appointment after she decides if she would like to proceed with BAHA versus cochlear implant. She may follow-up as needed for any related or nonrelated problems or concerns. Patientwill educated if she decides to proceed with a cochlear implant she may call our office and have a referral to either [facility] or [facility]. 1. Hearing loss of left ear, unspecified hearing loss type - Ambulatory referral to ENT - Ambulatory referral to Audiology; Future 2. Allergic rhinitis, unspecified seasonality, unspecified trigger - loratadine (CLARITIN) 10 mg tablet; Take 1 (one) tablet (10 mg total) by mouth daily . Dispense: 30 tablet; Refill: 3 - fluticasone propionate (FLONASE) 50 mcg/actuation nasal spray; Instill 1 (one) spray into each nostril 2 (two) times a day . Dispense: 16 g; Refill: 3 Diagnoses and all orders for this visit: Profound hearing loss of left ear - Ambulatory referral to ENT - Ambulatory referral to Audiology; Future Allergic rhinitis, unspecified seasonality, unspecified trigger - loratadine (CLARITIN) 10 mg tablet; Take 1 (one) tablet (10 mg total) by mouth daily . - fluticasone propionate (FLONASE) 50 mcg/actuation nasal spray; Instill 1 (one) spray into each nostril 2 (two) times a day . Lacy Arellano CNP documented in this encounter* Brianne Davey, Bill - 01/01/2020 1:11 PM EST [facility] [address] [place] [address] Name: Laura Helms : 1985 Date: 01/01/20 History & Purpose of Evaluation: Ms. Helms was seen today for audiologic evaluation at the kind request of Joel Arellano CNP. reports significant hearing loss at the left ear that was either present at or occurred shortly thereafter. Ms. Helms reports that she has never worn hearing aids and the she never wore any FM or other amplification devices in school. She does remember having recurrent ear infections as a child. Please see below for other pertinent case history information as reported by Ms. Helms. Otologic Symptoms R L Noise Exposure Y N Medical Y N Hearing Loss [] [x] Occupational [] [x] Hypertension [] [x] Tinnitus [] [] Recreational [] [x] Diabetes [] [x] Otalgia [] [] [] [x] Hypercholesterolemia [] [x] Otorrhea [] [] Heart Disease [] [x] Aural Fullness [] [] Family History [] [x] Stroke [] [x] Meniere s Disease [] [] Cancer [] [x] Y N Sp./Lang. Skills Ear Surgery R L Vertigo [] [x] Appropriate [x] [] PE Tubes [] [] Dizziness [] [x] In Therapy [] [x] Mastoidectomy [] [] Imbalance [] [x] Social Acoustic Neuroma [] [] Vestibular Rehab [] [x] Depression [] [x] Tympanoplasty [] [] Other: Results: [employer] Audiometry: Right: Normal hearing. Left: Profound sensorineural hearing loss. Speech Audiometry: Word recognition ability is excellent at the right ear when assessed at a soft conversational loudness level and could not be assessed at the left ear due to the severity of the hearing loss. Immittance Audiometry: Immittance audiometry revealed normal middle ear pressure and tympanic membrane mobility, bilaterally. Distortion Product Otoacoustic Emissions (DPOAE; 1500-6k Hz): Did not assess. Impression: Today's test results reveal a profound asymmetrical sensorineural hearing loss at the left ear, a finding that is consistent with Ms. Helms's reported history. Earlier testing is consistent with normal middle ear function, bilaterally.Ms. Helms's hearing loss was discussed with her at length as were her aural rehabilitation options (BAHA, Cochlear Implant, CROS hearing aid). Ms. Helmswas given informational brochures on on the Baha and cochlear implants and will consider her options. Recommendations: Follow-up with ENT. Audiologic monitoring of the right ear is recommended to rule out progressive hearing loss. Patient to return at her discretion for further information regarding her oral rehabilitation options. The above was explained to the patient and or their guardian and they expressed understanding. Bill Thibodeaux, CCC/A, FAAA YENNI Certified Ammonium Hydroxide Operator documented in this encounter* Kelton Miller MD - 01/15/2020 5:17 PM EST Subjective: Patient ID: Laura Helms is a 34 y.o. female. Chief Complaint Patient presents with Hearing Loss BAHA Consult-[facility] reevaluation was requested due to necessity for surgical hearing amplification. Briefly, patient is 34 years old female who had lost hearing on the left ear at approximately 8 years old age, as the result of sustained ear infections, as to the best of her knowledge. Patient denies recent ear pain, drainage, mastoid reactivity, facial weakness, dizziness or other cranial nerves associated symptoms. She is willing to receive information and discuss BAHA versus cochlear implantation. The following portions of the patient's history were reviewed and updated as appropriate: allergies, current medications, past family history, past medical history, past social history, past surgicalhistory and problem list. Review of Systems Constitutional: Negative. Negative for activity change, appetite change, chills, diaphoresis, fatigue and fever. HENT: Positive for hearing loss. Negative for congestion, dental problem, drooling, ear discharge, ear pain, facial swelling, mouth sores, nosebleeds, postnasal drip, rhinorrhea, sinus pressure, sinus pain, sneezing, sore throat, tinnitus, trouble swallowing and voice change. Eyes: Negative. Negative for photophobia, pain, discharge, redness, itching and visual disturbance. Respiratory: Negative. Negative for apnea, cough, choking, chest tightness, shortness of breath, wheezing and stridor. Cardiovascular: Negative. Negative for chest pain, palpitations and leg swelling. Gastrointestinal: Negative. Negative for abdominal distention, abdominal pain, anal bleeding, bloodin stool, constipation, diarrhea, nausea and rectal pain. Genitourinary: Negative. Musculoskeletal: Negative. Negative for arthralgias, gait problem, neck pain and neck stiffness. Skin: Negative. Negative for color change, pallor, rash and wound. Allergic/Immunologic: Negative for environmental allergies, food allergies and immunocompromised state. Neurological: Negative for dizziness, tremors, seizures, syncope, facial asymmetry, speech difficulty, weakness, light-headedness, numbness and headaches. Hematological: Negative for adenopathy. Does not bruise/bleed easily. Psychiatric/Behavioral: Negative. Objective: BP 109/76 (BP Location: Left arm, Patient Position: Sitting, BP Cuff Size: Adult) Pulse 69 Temp 98.7 F (37.1 C) (Temporal) Resp 16 Ht 5' 3 Wt 82.1 kg (181 lb) SpO2 99% BMI 32.06 kg/m Physical Exam Constitutional: She is oriented to person, place, and time. She appears well- developed and well-nourished. No distress. HENT: Head: Normocephalic and atraumatic. Head is without abrasion, without contusion and without laceration. Right Ear: Tympanic membrane, external ear and ear canal normal. No drainage, swelling or tenderness. No mastoid tenderness. Tympanic membrane is not perforated. Tympanic membrane mobility is normal.No middle ear effusion. No decreased hearing is noted. Left Ear: Tympanic membrane and external ear normal. No drainage, swelling or tenderness. No mastoid tenderness. Tympanic membrane is not perforated. Tympanic membrane mobility is normal. No middle ear effusion. Decreased hearing is noted. Nose: No mucosal edema, rhinorrhea, nose lacerations, sinus tenderness, nasal deformity or nasal septal hematoma. No epistaxis. No foreign bodies. Right sinus exhibits no maxillary sinus tenderness and no frontal sinus tenderness. Left sinus exhibits no maxillary sinus tenderness and no frontal sinus tenderness. Mouth/Throat: Uvula is midline, oropharynx is clear and moist and mucous membranes are normal. She does not have dentures. No oral lesions. No trismus in the jaw. Normal dentition. No dental abscesses, uvula swelling, lacerations or dental caries. No oropharyngeal exudate, posterior oropharyngeal edema, posterior oropharyngeal erythema or tonsillar abscesses. Eyes: Pupils are equal, round, and reactive to light. Conjunctivae and EOM are normal. Right eye exhibits no discharge. Left eye exhibits no discharge. No scleral icterus. Neck: Trachea normal, normal range of motion and phonation normal. Neck supple. No JVD present. No tracheal deviation present. No thyroid mass and no thyromegaly present. Cardiovascular: Normal rate, regular rhythm, normal heart sounds and intact distal pulses. Pulmonary/Chest: No stridor. No respiratory distress. She has no wheezes. She has no rales. She exhibits no tenderness. Abdominal: Soft. Bowel sounds are normal. She exhibits no distension. There is no abdominal tenderness. Musculoskeletal: Normal range of motion. Lymphadenopathy: She has no cervical adenopathy. Right cervical: No superficial cervical, no deep cervical and no posterior cervical adenopathy present. Left cervical: No superficial cervical, no deep cervical and no posterior cervical adenopathy present. Neurological: She is alert and oriented to person, place, and time. No cranial nerve deficit. Coordination normal. Skin: Skin is warm and dry. No rash noted. She is not diaphoretic. No erythema. Psychiatric: She has a normal mood and affect. Her behavior is normal. Judgment and thought contentnormal. I had personally review graphics and impression of the comprehensive hearing test, performed on 2019 in our office with patient. Assessment/Plan: The study had confirmed idiopathic unilateral left sided profound sensorineural hearing loss with mild, less than 30 dB in average increased thresholds in 250-2000 Hz frequencies field with normal tympanogram and speech discrimination on the right ear. The results are favorable forleft sided BAHA implantation, however 2 days simulating device testing did not provide substantial assurance about quality of the hearing amplification during length the trial while discussing other alternative ways including cochlear implantation, differences in mechanism of hearing amplification's, percutaneous versus magnetic devices, based on the patient's statement. All patient's questions were answered appropriately to the level of her satisfaction. I had offered my reevaluation as neededupon patient's decision making. 1. Profound hearing loss of left ear No orders of the defined types were placed in this encounter. documented in this encounter* Bess Londono PA-C - 01/02/2019 1:08 PM EST Subjective: Laura Helms is a 33 y.o. female and is here for a preventative care visit/ work physical. She is currently going through a break up and moving so she has been slightly stressed but otherwise there is nothing new. She states the migraines are well-controlled. She has about 6 a month, but theImitrex works well. Patient has lost almost 30 lbs since her last visit here. She has been trying and is exercising fairly regularly. She sees [facility] and is due for her pap next month, this is already scheduled. There are no preventive care reminders to display for this patient. Tobacco use or exposure: never Alcohol use: never Domestic violence: none Depression Screen: no Diet: decent Exercise: at least 3x week Last eye exam: 03/2018- [facility] Last dental visit: Upcoming appointment 01/2019 - [facility] Pap: Going to [facility] for next month for yearly appointment The following portions of the patient's history were reviewed and updated as appropriate: allergies, current medications, past family history, past medical history, past social history, past surgicalhistory and problem list. Past Medical History: Diagnosis Date Migraines Past Surgical History: Procedure Laterality Date SECTION, CLASSIC GANGLION CYST EXCISION Right 2010 right wrist Social History Tobacco Use Smoking status: Never Smoker Smokeless tobacco: Never Used Substance Use Topics Alcohol use: No Alcohol/week: 0.0 oz Drug use: No Family History Problem Relation Age of Onset Aneurysm Mother Aneurysm Maternal Grandmother Aneurysm Cousin Allergies Allergen Reactions Morphine Hives Review of Systems Constitutional: negative for chills, malaise and sweats Eyes: negative for irritation, redness and visual disturbance Ears, nose, mouth, throat, and face: negative for earaches, snoring and tinnitus Respiratory: negative for cough, hemoptysis and wheezing Cardiovascular: negative for chest pain, dyspnea, fatigue and palpitations Gastrointestinal: negative for abdominal pain, constipation, diarrhea, nausea and vomiting Genitourinary:negative for dysuria, hematuria and urinary incontinence Integument/breast: negative for breast lump, breast tenderness, dryness, nipple discharge and skin color change Musculoskeletal:negative for arthralgias, myalgias and stiff joints Neurological: POSITIVE FOR MIGRAINES negative for dizziness, seizures and tremors Behavioral/Psych: negative for anxiety and depression Endocrine: negative for diabetic symptoms including blurry vision, polydipsia and polyuria Objective: BP 104/71 (BP Location: Right arm, Patient Position: Sitting, BP Cuff Size: Adult) Pulse 80 Temp 98.6 F (37 C) (Oral) Resp 18 Ht 5' 2 Wt 76.7 kg (169 lb) SpO2 99% BMI 30.91 kg/m General Appearance: Alert, cooperative, no distress, appears stated age Head: Normocephalic, without obvious abnormality, atraumatic Eyes: PERRL, conjunctiva/corneas clear, EOM's intact, fundi benign, both eyes Ears: Normal TM's and external ear canals, both ears Nose: Nares normal, septum midline, mucosa normal, no drainage or sinus tenderness Neck: Supple, symmetrical, trachea midline, no adenopathy; thyroid: no enlargement/tenderness/nodules; no carotid bruit or JVD Chest Wall: No tenderness or deformity Heart: Regular rate and rhythm, S1 and S2 normal, no murmur, rub or gallop Breast Exam: No tenderness, masses, or nipple abnormality Abdomen: Soft, non-tender, bowel sounds active all four quadrants, no masses, no organomegaly Extremities: Extremities normal, atraumatic, no cyanosis or edema Pulses: 2+ and symmetric all extremities Skin: Skin color, texture, turgor normal, no rashes or lesions Lymph nodes: Cervical, supraclavicular, and axillary nodes normal Neurologic: CNII-XII intact, normal strength, sensation and reflexes throughout Assessment: Healthy female exam Plan: Problem List Items Addressed This Visit Digestive GERD (gastroesophageal reflux disease) We are STOPPING the Pepcid and STARTING the Prilosec at this time. Pepcid does not seem to be effective anymore so we changed the medication. If this does not work or you are having more side effects, please let me know immediately. Discussed lifestyle modifications to help with GERD such as decreasing caffeine, nicotine and alcohol, avoiding a lot of carbonated beverages, elevating head of the bed, not eating late at night before reclining, decreasing fats in the diet, etc. You agreed to treatment plan and verbalized understanding. Relevant Medications omeprazole (PRILOSEC) 10 MG capsule Cardiovascular and Mediastinum Migraines No longer seeing neurology. They are well controlled on the imitrex. Should the headaches change inbaseline or symptoms progress, we need to know immediately. Worrisome headaches: worst headache of my life or thunderclap headaches These are emergencies and care should not be delayed. Relevant Medications SUMAtriptan (IMITREX) 100 MG tablet topiramate (TOPAMAX) 100 MG tablet Other Well woman exam - Primary No significant lifestyle issues. Discussed target body weight and ways to maintain/achieve. Make sure you have 150 minutes per week at target heart rate and at least 15% at resistance training. Maximum Heart rate or MHR is defined by 220 - age. Then target heart rate or THR is 65-85% of MHR. Need to allow warmup slowly over 5- 10 minute to prevent going too fast to reach THR. Then exercise interval at THR and allow cool down until at least [facility] back to the pre exercise hear rate. Therefore if resting heart rate was 70 and your target heart rate was 120. You need to keep moving and work themuscles until you heart rate is below 95 beats per minute. This reduces cramping and the risk of cardiac irritability post exercise. Maintain healthy diet. Everything in moderation is a good rule of thumb. Follow serving sizes and try not to exceed these. Blood work ordered today, to be done when fasting. General Patient Counseling Given: --Nutrition: Stressed importance of moderation in sodium/caffeine intake, saturated fat and cholesterol, caloric balance, sufficient intake of fresh fruits, vegetables, fiber, calcium, iron, and 1 mgof folate supplement per day (for females capable of ). --Exercise: Stressed the importance of regular exercise. --Dental health: Discussed importance of regular dental visits. --Immunizations reviewed. --Discussed benefits of screening mammograms, pap smears, and colonoscopy. in this encounter Assessments Diagnosis Profound hearing loss of left ear Allergic rhinitis, unspecified seasonality, unspecified trigger Diagnosis Profound hearing loss of left ear Diagnosis Profound hearing loss of left ear Diagnosis Well woman exam- Primary Routine general medical examination at a health care facility Migraine with aura and without status migrainosus, not intractable Gastroesophageal reflux disease, esophagitis presence not specified Advance Directives No Advanced Directives Records FoundDocuments on File Type Date Recorded Patient Platform Builder Expl anation Advance Directives and Living Will Documents on File Type Date Recorded Patient Platform Builder Expl anation Advance Directives and Living Will Instructions * Patient Instructions* Kelton Miller MD - 01/15/2020 5:24 PM EST Learning About Bone-Anchored Hearing Systems What is a bone-anchored hearing system? A bone-anchored hearing system is a device permanently implanted in the skull that helps with hearing loss. The system works by picking up sound vibrations. The ear is made up of the external ear canal, the middle ear, and the inner ear. The middle ear is from the ear canal by the eardrum. The inner ear contains the cochlea, which is the main organ of hearing. Sound enters the ear canal and strikes the eardrum. The bones of the middle ear vibrate, sending the vibration to the inner ear. There, the cochlea changes sound waves into electrical signals. The brain interprets these signals as sound. A bone-anchored hearing system can be helpful when there is a problem from the outside of the ear to the cochlea. The system bypasses the middle ear. It sends sound through the skull bone right to the cochlea. The sound is usually very clear. Some people say they hear better with a bone-anchored hearing system than with a regular hearing aid because nothing is molded into the ear to block sound. This system may be a choice for people who do not benefit from a standard hearing aid. It may be helpful if: You were born without an ear canal. (This is called congenital atresia.) You have a chronic ear infection, and your hearing aid makes the infection worse. You are allergic to the material used to make standard hearing aids. You have hearing on only one side. How is this system attached? First, a tiny screw is placed in the skull bone behind the ear. This requires minor surgery. The screw has a metal piece called an abutment connected to it. The hearing device, which is the sound processor, clips onto the metal piece. All of the pieces sit behind the ear. No part of the system is within the ear itself. What can you expect when you have a bone-anchored hearing system? Your doctor will tell you how to care for the site where the hearing aid is implanted. Once everything is healed, you will learn how to do daily cleaning. This device is not waterproof. You will need to remove the sound processor before you shower or swim. Follow-up care is a mclaughlin part of your treatment and safety. Be sure to make and go to all appointments, and call your doctor if you are having problems. It's also a good idea to know your test resultsand keep a list of the medicines you take. Where can you learn more? Log into your personal health record on [email or web address] and enter Y865 in the Education box to learn more about Learning About Bone-Anchored Hearing Systems. Current as of: June 23, 2019 Content Version: 12.3 8640-5867 [employer]. Care instructions adapted under license by your healthcare professional. If you have questions about a medical condition or this instruction, always ask your healthcare professional. [employer] disclaims any warranty or liability for your use of this information. documented in this encounter* Patient Instructions* Bess Londono PA-C - 01/02/2019 1:32 PM EST Problem List Items Addressed This Visit Digestive GERD (gastroesophageal reflux disease) We are STOPPING the Pepcid and STARTING the Prilosec at this time. Pepcid does not seem to be effective anymore so we changed the medication. If this does not work or you are having more side effects, please let me know immediately. Discussed lifestyle modifications to help with GERD such as decreasing caffeine, nicotine and alcohol, avoiding a lot of carbonated beverages, elevating head of the bed, not eating late at night before reclining, decreasing fats in the diet, etc. You agreed to treatment plan and verbalized understanding. Cardiovascular and Mediastinum Migraines No longer seeing neurology. They are well controlled on the imitrex. Should the headaches change inbaseline or symptoms progress, we need to know immediately. Worrisome headaches: worst headache of my life or thunderclap headaches These are emergencies and should not be delayed. Relevant Medications SUMAtriptan (IMITREX) 100 MG tablet topiramate (TOPAMAX) 100 MG tablet Other Well woman exam - Primary No significant lifestyle issues. Discussed target body weight and ways to maintain/achieve. Make sure you have 150 minutes per week at target heart rate and at least 15% at resistance training. Maximum Heart rate or MHR is defined by 220 - age. Then target heart rate or THR is 65-85% of MHR. Need to allow warmup slowly over 5- 10 minute to prevent going too fast to reach THR. Then exercise interval at THR and allow cool down until at least [facility] back to the pre exercise hear rate. Therefore if resting heart rate was 70 and your target heart rate was 120. You need to keep moving and work themuscles until you heart rate is below 95 beats per minute. This reduces cramping and the risk of cardiac irritability post exercise. Maintain healthy diet. Everything in moderation is a good rule of thumb. Follow serving sizes and try not to exceed these. Blood work ordered today, to be done when fasting. Migraine Headache: Care Instructions Your Care Instructions Migraines are painful, throbbing headaches that often start on one side of the head. They may causenausea and vomiting and make you sensitive to light, sound, or smell. Without treatment, migraines can last from 4 hours to a few days. Medicines can help prevent migraines or stop them after they have started. Your doctor can help you find which ones work best for you. Follow-up care is a mclaughlin part of your treatment and safety. Be sure to make and go to all appointments, and call your doctor if you are having problems. It's also a good idea to know your test resultsand keep a list of the medicines you take. How can you care for yourself at home? Do not drive if you have taken a prescription pain medicine. Rest in a quiet, dark room until your headache is gone. Close your eyes, and try to relax or go to sleep. Don't watch TV or read. Put a cold, moist cloth or cold pack on the painful area for 10 to 20 minutes at a time. Put a thincloth between the cold pack and your skin. Use a warm, moist towel or a heating pad set on low to relax tight shoulder and neck muscles. Have someone gently massage your neck and shoulders. Take your medicines exactly as prescribed. Call your doctor if you think you are having a problem with your medicine. You will get more details on the specific medicines your doctor prescribes. Be careful not to take pain medicine more often than the instructions allow. You could get worse ormore frequent headaches when the medicine wears off. To prevent migraines Keep a headache diary so you can figure out what triggers your headaches. Avoiding triggers may help you prevent headaches. Record when each headache began, how long it lasted, and what the pain was like. (Was it throbbing, aching, stabbing, or dull?) Write down any other symptoms you had with the h eadache, such as nausea, flashing lights or dark spots, or sensitivity to bright light or loud noise. Note if the headache occurred near your period. List anything that might have triggered the headache. Triggers may include certain foods (chocolate, cheese, wine) or odors, smoke, bright light, stress, or lack of sleep. If your doctor has prescribed medicine for your migraines, take it as directed. You may have medicine that you take only when you get a migraine and medicine that you take all the time to help prevent migraines. ? If your doctor has prescribed medicine for when you get a headache, take it at the first sign of a migraine, unless your doctor has given you other instructions. ? If your doctor has prescribed medicine to prevent migraines, take it exactly as prescribed. Call your doctor if you think you are having a problem with your medicine. Find healthy ways to deal with stress. Migraines are most common during or right after stressful times. Take time to relax before and after you do something that has caused a migraine in the past. Try to keep your muscles relaxed by keeping good posture. Check your jaw, face, neck, and shoulder muscles for tension. Try to relax them. When you sit at a desk, change positions often. And make sure to stretch for 30 seconds each hour. Get plenty of sleep and exercise. Eat meals on a regular schedule. Avoid foods and drinks that often trigger migraines. These includechocolate, alcohol (especially red wine and port), aspartame, monosodium glutamate (MSG), and some additives found in foods (such as hot dogs, rossi, cold cuts, aged cheeses, and pickled foods). Limit caffeine. Don't drink too much coffee, tea, or soda. But don't quit caffeine suddenly. That can also give you migraines. Do not smoke or allow others to smoke around you. If you need help quitting, talk to your doctor about stop-smoking programs and medicines. These can increase your chances of quitting for good. If you are taking control pills or hormone therapy, talk to your doctor about whether they are triggering your migraines. When should you call for help? Call 911 anytime you think you may need emergency care. For example, call if: You have signs of a stroke. These may include: ? Sudden numbness, paralysis, or weakness in your face, arm, or leg, especially on only one side ofyour body. ? Sudden vision changes. ? Sudden trouble speaking. ? Sudden confusion or trouble understanding simple statements. ? Sudden problems with walking or balance. ? A sudden, severe headache that is different from past headaches. Call your doctor now or seek immediate medical care if: You have new or worse nausea and vomiting. You have a new or higher fever. Your headache gets much worse. Watch closely for changes in your health, and be sure to contact your doctor if: You are not getting better after 2 days (48 hours). Where can you learn more? Log into your personal health record on https://[employer] and enter U690 in the Education box to learn more about Migraine Headache: Care Instructions. Current as of: April 29, 2018 Content Version: 11.9 1799-3115 [employer]. Care instructions adapted under license by your healthcare professional. If you have questions about a medical condition or this instruction, always ask your healthcare professional. [employer] disclaims any warranty or liability for your use of this information. Gastroesophageal Reflux Disease (GERD): Care Instructions Your Care Instructions Gastroesophageal reflux disease (GERD) is the backward flow of stomach acid into the esophagus. Theesophagus is the tube that leads from your throat to your stomach. A one-way valve prevents the stomach acid from moving up into this tube. When you have GERD, this valve does not close tightly enough. If you have mild GERD symptoms including heartburn, you may be able to control the problem with antacids or czuw-ehr-uhbdjjp medicine. Changing your diet, losing weight, and making other lifestyle changes can also help reduce symptoms. Follow-up care is a mclaughlin part of your treatment and safety. Be sure to make and go to all appointments, and call your doctor if you are having problems. It's also a good idea to know your test resultsand keep a list of the medicines you take. How can you care for yourself at home? Take your medicines exactly as prescribed. Call your doctor if you think you are having a problem with your medicine. Your doctor may recommend ztmu-ydp-whpeqtb medicine. For mild or occasional indigestion, antacids, such as Tums, Gaviscon, Mylanta, or Maalox, may help. Your doctor also may recommend khnw-rnf-babsqvr acid reducers, such as Pepcid AC, Tagamet HB, Zantac 75, or Prilosec. Read and follow all instructions on the label. If you use these medicines often, talk with your doctor. Change your eating habits. ? It's best to eat several small meals instead of two or three large meals. ? After you eat, wait 2 to 3 hours before you lie down. ? Chocolate, mint, and alcohol can make GERD worse. ? Spicy foods, foods that have a lot of acid (like tomatoes and oranges), and coffee can make GERD symptoms worse in some people. If your symptoms are worse after you eat a certain food, you may wantto stop eating that food to see if your symptoms get better. Do not smoke or chew tobacco. Smoking can make GERD worse. If you need help quitting, talk to your doctor about stop-smoking programs and medicines. These can increase your chances of quitting for good. If you have GERD symptoms at night, raise the head of your bed 6 to 8 inches by putting the frame on blocks or placing a foam wedge under the head of your mattress. (Adding extra pillows does not work.) Do not wear tight clothing around your middle. Lose weight if you need to. Losing just 5 to 10 pounds can help. When should you call for help? Call your doctor now or seek immediate medical care if: You have new or different belly pain. Your stools are black and tarlike or have streaks of blood. Watch closely for changes in your health, and be sure to contact your doctor if: Your symptoms have not improved after 2 days. Food seems to catch in your throat or chest. Where can you learn more? Log into your personal health record on https://[employer] and enter T927 in the Education box to learn more about Gastroesophageal Reflux Disease (GERD): Care Instructions. Current as of: February 20, 2018 Content Version: 10.05-2018 [employer]. Care instructions adapted under license by your healthcare professional. If you have questions about a medical condition or this instruction, always ask your healthcare professional. [employer] disclaims any warranty or liability for your use of this information. Well Visit, Ages 18 to 50: Care Instructions Your Care Instructions Physical exams can help you stay healthy. Your doctor has checked your overall health and may have suggested ways to take good care of yourself. He or she also may have recommended tests. At home, you can help prevent illness with healthy eating, regular exercise, and other steps. Follow-up care is a mclaughlin part of your treatment and safety. Be sure to make and go to all appointments, and call your doctor if you are having problems. It's also a good idea to know your test resultsand keep a list of the medicines you take. How can you care for yourself at home? Reach and stay at a healthy weight. This will lower your risk for many problems, such as obesity, diabetes, heart disease, and high blood pressure. Get at least 30 minutes of physical activity on most days of the week. Walking is a good choice. You also may want to do other activities, such as running, swimming, cycling, or playing tennis or team sports. Discuss any changes in your exercise program with your doctor. Do not smoke or allow others to smoke around you. If you need help quitting, talk to your doctor about stop-smoking programs and medicines. These can increase your chances of quitting for good. Talk to your doctor about whether you have any risk factors for sexually transmitted infections (STIs). Having one sex partner (who does not have STIs and does not have sex with anyone else) is a good way to avoid these infections. Use control if you do not want to have children at this time. Talk with your doctor about thechoices available and what might be best for you. Protect your skin from too much sun. When you're outdoors from 10 a.m. to 4 p.m., stay in the shadeor cover up with clothing and a hat with a wide brim. Wear sunglasses that block UV rays. Even whenit's cloudy, put broad-spectrum sunscreen (SPF 30 or higher) on any exposed skin. See a dentist one or two times a year for checkups and to have your teeth cleaned. Wear a seat belt in the car. Drink alcohol in moderation, if at all. That means no more than 2 drinks a day for men and 1 drink a day for women. Follow your doctor's advice about when to have certain tests. These tests can spot problems early. For everyone Cholesterol. Have the fat (cholesterol) in your blood tested after age 20. Your doctor will tell you how often to have this done based on your age, family history, or other things that can increase your risk for heart disease. Blood pressure. Have your blood pressure checked during a routine doctor visit. Your doctor will tell you how often to check your blood pressure based on your age, your blood pressure results, and other factors. Vision. Talk with your doctor about how often to have a glaucoma test. Diabetes. Ask your doctor whether you should have tests for diabetes. Colon cancer. Have a test for colon cancer at age 50. You may have one of several tests. If you areyounger than 50, you may need a test earlier if you have any risk factors. Risk factors include whether you already had a precancerous polyp removed from your colon or whether your parent, brother, si ster, or child has had colon cancer. For women Breast exam and mammogram. Talk to your doctor about when you should have a clinical breast exam and a mammogram. Medical experts differ on whether and how often women under 50 should have these tests. Your doctor can help you decide what is right for you. Pap test and pelvic exam. Begin Pap tests at age 21. A Pap test is the best way to find cervical cancer. The test often is part of a pelvic exam. Ask how often to have this test. Tests for sexually transmitted infections (STIs). Ask whether you should have tests for STIs. You may be at risk if you have sex with more than one person, especially if your partners do not wear condoms. For men Tests for sexually transmitted infections (STIs). Ask whether you should have tests for STIs. You may be at risk if you have sex with more than one person, especially if you do not wear a condom. Testicular cancer exam. Ask your doctor whether you should check your testicles regularly. Prostate exam. Talk to your doctor about whether you should have a blood test (called a PSA test) for prostate cancer. Experts differ on whether and when men should have this test. Some experts suggest it if you are older than 45 and are -Italian or have a father or brother who got prostatecancer when he was younger than 65. When should you call for help? Watch closely for changes in your health, and be sure to contact your doctor if you have any problems or symptoms that concern you. Where can you learn more? Log into your personal health record on https://[employer] and enter P072 in the Education box to learn more about Well Visit, Ages 18 to 50: Care Instructions. Current as of: February 21, 2018 Content Version: 11.9 8376-4499 [employer]. Care instructions adapted under license by your healthcare professional. If you have questions about a medical condition or this instruction, always ask your healthcare professional. [employer] disclaims any warranty or liability for your use of this information. in this encounter Summary Purpose Family History No Family History Records FoundNo Family History Records FoundNo Family History Records Found Additional Source Comments Reason for Visit (unrecogniz ed section and content) Status Reason Specialty Diagnoses / Procedures Referred By Contact Referred To Contact Closed Otolaryngology Diagnoses Hearing loss of left ear, unspecified hearing loss type Yenny Benson AuD [address] [place] [address] Kelton Miller MD [address] [place] [address] Status Reason Specialty Diagnoses / Procedures Referred By Contact Referred To Contact Closed Specialty Services Required/Patie nt[facility] Interest Audiology / Otolaryngology Diagnoses Hearing loss of left ear, unspecified hearing loss type Lacy Arellano CNP [address] [place] [address] Brianne Davey AuD [address] [facility] [place] [address] Reason Comments Hearing Loss BAHA Consult-Last se en Lacy Reason Comments Employment Physical Medication Problem reports taking pepci d not working long enough for her acid reflux Reason Comments Foot Pain L heel pain x 6-8 wk s - pt states that the pain is in the bottom of the heel and lateral side - no trauma or injury Reason Comments Follow-up Follow up plantar fa scitis left foot. Pt states it is better but would like to discuss other options besides wearing the boot. Reason Comments Follow-up L foot plantar fasci itis - injection helped a lot - pt has no more pain but still has tightness at times Reason Comments Follow-up Follow up plantar fa sciitis pain. Pt states shot helped last time for about 2 months but pain came back 2-3 weeks ago. Pt states she did get inserts. Reason Comments Medication Refill Specialty Diagnoses / Procedures Referred By Luis E t Referred To Contact Cardiology Diagnoses Jaw pain Procedures ECG 12 Lead Leslie Sanabria, [employer] [address] [place] [address] [place] [address] Referral ID Status Reason Start Date Expiration Date Visits Re quested Visits Authorized [id number] Closed 10/27/2023 10/26/2024 1 1 Assessment & Plan Note - Bess Londono PA-C - 01/02/2019 1:30 PM ESTAssessment & Plan Note - Bess Londono PA-C - 01/02/2019 1:19 PM EST Miscellaneous Notes (unrecog nized section and content) Associated Problem(s): Well woman exam No significant lifestyle issues. Discussed target body weight and ways to maintain/achieve. Make sure you have 150 minutes per week at target heart rate and at least 15% at resistance training. Maximum Heart rate or MHR is defined by 220 - age. Then target heart rate or THR is 65-85% of MHR. Need to allow warmup slowly over 5- 10 minute to prevent going too fast to reach THR. Then exercise interval at THR and allow cool down until at least [facility] back to the pre exercise hear rate. Therefore if resting heart rate was 70 and your target heart rate was 120. You need to keep moving and work the muscles until you heart rate is below 95 beats per minute. This reduces cramping and the risk of cardiac irritability post exercise. Maintain healthy diet. Everything in moderation is a good rule of thumb. Follow serving sizes and try not to exceed these. Blood work ordered today, to be done when fasting. Associated Problem(s): GERD (gastroesophageal reflux disease) We are STOPPING the Pepcid and STARTING the Prilosec at this time. Pepcid does not seem to be effective anymore so we changed the medication. If this does not work or you are having more side effects, please let me know immediately. Discussed lifestyle modifications to help with GERD such as decreasing caffeine, nicotine and alcohol, avoiding a lot of carbonated beverages, elevating head of the bed, not eating late at night before reclining, decreasing fats in the diet, etc. You agreed to treatment plan and verbalized understanding. Associated Problem(s): Migraines No longer seeing neurology. They are well controlled on the imitrex. Should the headaches change in baseline or symptoms progress, we need to know immediately. Worrisome headaches: worst headache of my life or thunderclap headaches These are emergencies and care should not be delayed. in this encounter INFORMATION SOURCE (unrecogn ized section and content) DATE CREATED AUTHOR AUTHOR'S ORGANIZ ATION 01/12/2022 [facility] DATE CREATED AUTHOR AUTHOR'S ORGANIZ ATION 11/06/2023 [facility] Care Teams (unrecognized sec tion and content) Asset Availability Leader Relationship Specialty Start Date End Date No, Physician [facility] PCP - General 11/17/21 Rosario Montoya MD [address] [address] Referring Physician Obstetrics/Gynecology 10/17/17 Asset Availability Leader Relationship Specialty Start Date End Date No, Physician [facility] PCP - General 11/17/21 Rosario Montoya MD [address] [phone] Referring Physician Obstetrics/Gynecology 10/17/17 Asset Availability Leader Relationship Specialty Start Date End Date No, Physician [facility] PCP - General 11/17/21 Rosario Montoya MD [address] [id number] Referring Physician Obstetrics/Gynecology 10/17/17 Asset Availability Leader Relationship Specialty Start Date End Date Khang Morrison MD PCP - General Family Medicine 06/14/16 12/29/19 Khang Morrison MD [address] [address] PCP - General Family Medicine 12/30/19 01/14/20 Brianne Bynum MD [address] [address] PCP - General Family Medicine 01/15/20 01/26/20 Leslie Sanabria CNP [address] [place] [id number] PCP - General Nurse Practitioner 09/18/20 03/08/21 Ghazal Dickson CNP [address] [place] [address] PCP - General Family Medicine 03/09/21 11/02/21 No, Physician [facility] PCP - General 11/17/21 Rosario Montoya MD [address] [phone] Referring Physician Obstetrics/Gynecology 10/17/17 Asset Availability Leader Relationship Specialty Start Date End Date Leslie Sanabria CNP [address] [place] [address] PCP - General Nurse Practitioner 02/03/23 Rosario Montoya MD [address] [place] [id number] Referring Physician Obstetrics/Gynecology 10/17/17 FOR RECORDS PERTAINING TO PATIENTS WHO ARE OR HAVE BEEN ENROLLED IN A CHEMICAL DEPENDENCY/SUBSTANCEABUSE PROGRAM, SOME INFORMATION MAY BE OMITTED. This clinical summary was aggregated from multiple sources. Caution should be exercised in using it in the provision of clinical care. This summary normalizes information from multiple sources, and as a consequence, information in this document may materially change the coding, format and clinical context of patient data. In addition, data may be omitted in some cases. CLINICAL DECISIONS SHOULD BE BASED ON THE PRIMARY CLINICAL RECORDS. [facility] [employer] [facility]. provides no warranty or guarantee of the accuracy or completeness of information in this document.
== END | disposition home or self-care (01) ==
LOC: OPUS 09:26
PROVIDERS: Referring Provider Obstetrics & Gynecology; Visit Provider Obstetrics & Gynecology
DX: N93.9 Abnormal uterine and vaginal bleeding, unspecified (principal); N64.4 Mastodynia
CPT/HCPCS: 77062; 76642; 76830; 77066; G0279

== ENCOUNTER → 2024-01-16 | Outpatient (CLI) | payer MEDICAID, SELFPAY ==
--- NOTE | 2024-01-16 15:30 | RAD_ITS ---
STUDY: X-RAY - CERVICAL SPINE REASON FOR EXAM: Female, 38 years old. Neck pain TECHNIQUE: 3 view(s) of the cervical spine were obtained. COMPARISON: None FINDINGS: Normal anterior atlantoaxial articulation. Normal odontoid process. There is straightening of the normal cervical lordosis. Normal vertebral bodies and endplates. Normal disc space heights. There is no fracture. The soft tissue structures are unremarkable. RAD/Cerv Spine 2 or 3 Views IMPRESSION: No fracture. Straightening of the cervical lordosis. Disc spaces are well-preserved. Electronically Signed: Geovanni Henning MD at 18:12 EST ,
--- OUTSIDE RECORDS SUMMARY | 2024-01-16 20:21 | XMS RPT_ITS | CCD ---
Author Name Unknown Address [address] [place] [address] Organization [facility] Care Team Providers Care Cableway Operator Name Role Phone Rosario Montoya Unavailable Khang Morrison Primary Care Provider Brianne Bynum Primary Care Provider Khang Morrison Primary Care Provider Seda Benton MD, Rosario Rox Unavailable [phone] No, Physician Primary Care Provider UnavailRosario Moore MD Rox Unavailable No, Physician Primary Care Provider UnavailKhang Orantes MD Primary Care Provider Khang Morrison MD Primary Care Provider [phone] Brianne Bynum MD Primary Care Provider Daniele VEGETABLE FARM WORKERLeslie Primary Care Provider Randolph VEGETABLE FARM WORKERGhazal Primary Care Provider Leslie Sanabria CNP Primary [...] sources) Morphine; Translations: [MORPHINE] Drug Allergy 06-14-[address] [facility] (8 sources) Sulfonamides (Antibiotic); Translations: [SULFA (SULFONAMIDE ANTIBIOTICS)] Propensity to adverse reactions to drug 03-09-2021 Hives, Rash [facility] Medications Current Medications Medication [...] [degF] Bridger Hollingsworth Jr., DPM Work Phone: [facility] 12-09-2022 09:43-0500 Diastolic blood pressure 87 mm[Hg] Bridger Hollingsworth Jr., DPM Work Phone: [facility] 12-09-2022 09:43-0500 Heart rate 102 /min Bridger Hollingsworth Jr., DPM Work Phone: [facility] 12-09-2022 09:43-0500 Systolic blood pressure 129 mm[Hg] Bridger Hollingsworth Jr., DPM Work Phone: [facility] 09-23-2022 10:16-0400 Body temperature 97.5 [degF] Bridger Hollingsworth Jr., DPM Work Phone: [facility] 09-23-2022 10:16-0400 Diastolic blood pressure 84 mm[Hg] Bridger Hollingsworth Jr., DPM Work Phone: [facility] 09-23-2022 10:16-0400 Heart rate 108 /min Bridger Hollingsworth Jr., DPM Work Phone: [facility] 09-23-2022 10:16-0400 Systolic blood pressure 121 mm[Hg] Bridger Hollingsworth Jr., DPM Work Phone: [facility] 08-26-2022 09:52-0400 Body temperature 98.49 [degF] Bridger Hollingsworth Jr., DPM Work Phone: [facility] 08-26-2022 09:52-0400 Diastolic blood pressure 73 mm[Hg] Bridger Hollingsworth Jr., DPM Work Phone: [facility] 08-26-2022 09:52-0400 Heart rate 130 /min Bridger Hollingsworth Jr., DPM Work Phone: [facility] Encounters Encounter Date Encounter Type Care Provider Facility Start: 11-01-2023 End: 11-05-2023 ambulatory EMI [facility] Start: 11-01-2023 End: 11-01-2023 Clinical Support Leslie Sanabria CNP Work Phone: [facility] Procedures Date Procedure Procedure Detail Performing Clinician Start: 11-01-2023 Ecg routine ecg w/le ast 12 lds w/i&r Leslie Sanabria CNP Work Phone: Start: 10-27-2023 Adult depression scr eening assessment [facility] Start: 07-15-2022 Radex foot complete minimum 3 [...] Health Questionnaire 9) score Depression Screening (PHQ-2/9) [facility] Start: 05-26-2024 Influenza vaccination Sequenti al Influenza Vaccine (#1) [facility] Immunizations Immunization Date Immunization Notes Care Provider Kristan nielsen 03-06-2017 tuberculin skin test ; purified protein derivative solution, intradermal [facility] 10-03-2016 tuberculin skin test ; purified protein derivative solution, intradermal [facility] 10-26-2015 tetanus toxoid, redu eric diphtheria toxoid, and acellular pertussis vaccine, adsorbed [facility] 05-12-2011 hepatitis B vaccine, adult dosage Ma morena [facility] 05-12-2011 tetanus toxoid, redu eric diphtheria toxoid, and acellular pertussis vaccine, adsorbed [facility] Payers Date Payer Category Payer Unknown [id number] 2022 Unknown [id number] 2022 Medicaid [id number] 2021 Unknown [id number] 2016 Medicaid [employer] [facility] MEDICAID [employer] MEDICAID xxxxxxxxxxx 2016-Present xxxxxxxxxxx [id number] 2016 Medicaid [id number] 1999 Medicaid [id number] 1987 Unknown [id number] 1987 Unknown [id number] 1987 Unknown [id number] Social History Date Type Detail Facility Start: 12-31-2019 End: 08-26-2022 Tobacco smoking status NHIS Never smoker [facility] Start: 02-19-2019 End: 12-31-2019 Alcohol intake Current non-drinker of alcohol (finding) [facility] Start: 1985 Sex Assigned At Not on file [facility] Start: 10-17-2017 End: 08-26-2022 Tobacco use and exposure Smokeless tobacco non-user [facility] Start: 07-15-2022 End: 10-27-2023 Alcohol intake Ex-drinker (finding) [facility] Start: 07-15-2022 End: 11-03-2022 Alcohol intake [facility] Start: 07-04-2022 End: 12-09-2022 Exposure to SARS-CoV-2 (event) Not sure [facility] Start: 11-03-2022 History SDOH Alcohol Frequency 2 [facility] Start: 11-03-2022 History SDOH Alcohol Std Drinks 1 [facility] Start: 11-03-2022 History SDOH Social Connections Phone 98 [facility] Start: 11-03-2022 History SDOH Social Connections Living 3 [facility] Start: 11-03-2022 End: 10-27-2023 [...] , never or living with a partner? [facility] How often to you hav e a [...] the mortgage or rent on time? Yes [facility] Start: 01-02-2019 Gender identity Identifies as female gender (finding) [facility] Start: 01-02-2019 Sexual orientation Heterosexual (gopi laughlin) [facility] Goals Date Patient Goal [...] Narrative EKG performed documented in this encounter [facility] 12-09-2022 History of Presen [...] for injection today. documented in this encounter [facility] 09-23-2022 History of Presen [...] patient's anatomy is not amenable to an qwgi-ubh-uvprsap device or prefabricated device and requires a custom device 1 pair of custom functional orthotics with soft top-cover bilateral first MPJ cut out Follow-up in 1 to 2 years for an updated orthotic prescription. Low medical complexity decision due to the subchronic nature. documented in this encounter [facility] 08-26-2022 History of Presen [...] orthotics for maintenance. documented in this encounter [facility] 07-15-2022 History of Presen [...] complexity decision making. documented in this encounter [facility] 03-08-2019 Telephone encounter Note Form atting of this note might be different from the original. She was just seen. This does not need addressed any further. We started her on a new medication. [facility] 03-08-2019 Miscellaneous Notes Formattin g of this note might be different from the original. She was just seen. This does not need addressed any further. We started her on a new medication. documented in this encounter [facility] Plantar fasciitis of left foot- Primary Left foot pain Pain in soft tissues of limb [facility] Plantar fasciitis of left foot- Primary Left foot pain Pain in soft tissues of limb [facility] Jaw pain documented in this encounter [facility] Reason for Referral Status Reason Specialty Diagnoses / Procedures Referred By Contact Referred To Contact Closed Specialty Services Required/Patie nt's Best Interest Audiology / Otolaryngology Diagnoses Hearing loss of left ear, unspecified hearing loss type Lacy Arellano CNP [address] [place] [address] Brianne Davey AuD [address] [place] [address] History of Present Illness * Lacy Arellano CNP - 12/31/2019 11:25 AM EST ENT New Patient Visit Patient Name: Laura Helms MR #: [id number] : 1985 Physicians: Khang Morrison MD (Family); [...] Migraines Moderate cervical dysplasia Info Gained From:[facility] --- Rosario Bess MD Past Surgical [...] file Gets together: Not on file Attends baptism service: Not on file Active member of club or organization: Not on file Attends meetings of clubs or organizations: Not on file Relationship status: Not on file Other Topics Concern Not on file Social History Narrative Not on file Allergy Information: I have reviewed the patient's allergies. Morphine Home Medications: Outpatient Medications as of 2019 Order #: [id number]: Normal Order #: [id number]: Historical Med Order #: [id number]: Historical Med ROS: Review of Systems Constitution: [...] have a referral to either [facility] or [facility]. 1. Hearing loss of left ear, unspecified [...] Davey, Bill - 01/01/2020 1:11 PM EST [facility] Audiology [address] [place] [address] Name: Laura Helms : 1985 Date: 01/01/20 [...] understanding. Bill Thibodeaux, CCC/A, FAAA YENNI Certified [employer]er documented in this encounter* Kelton Miller MD - 01/15/2020 5:17 PM EST Subjective: Patient ID: Laura Helms is a 34 y.o. female. Chief Complaint Patient presents with Hearing Loss [facility] due to necessity for [...] and is exercising fairly regularly. She sees [facility] and is due for her pap next month, this is already scheduled. There are no preventive care reminders to display for this patient. Tobacco use or exposure: never Alcohol use: never Domestic violence: none Depression Screen: no Diet: decent Exercise: at least 3x week Last eye exam: 03/2018- [facility] Last dental visit: Upcoming appointment 01/2019 - [facility] Pap: Going to [facility] for next month for yearly appointment The [...] and allow cool down until at least detention back to the pre exercise hear rate. [...] FoundDocuments on File Type Date Recorded Patient Tile Layer Drainage Expl anation Advance Directives and Living Will Documents on File Type Date Recorded Patient Tile Layer Drainage Expl anation Advance Directives and Living Will [...] Log into your personal health record on https://[employer] and enter Y865 in the Education box to learn more about Learning About [employer]. Current as of: June 23, 2019 Content Version: 12.3 9376-5774 [employer]. Care instructions adapted under license by your healthcare professional. If you have questions about a medical condition or this instruction, always ask your healthcare professional. [employer] disclaims any warranty or liability for your [...] and allow cool down until at least detention back to the pre exercise hear rate. [...] Log into your personal health record on https://[employer] and enter U690 in the Education box to learn more about Migraine Headache: Care Instructions. Current as of: April 29, 2018 Content Version: 11.9 4940-7265 [employer]. Care instructions adapted under license by your healthcare professional. If you have questions about a medical condition or this instruction, always ask your healthcare professional. [employer] disclaims any warranty or liability for your [...] to control the problem with antacids or njvk-alf-wxbkziq medicine. Changing your diet, losing weight, and [...] with your medicine. Your doctor may recommend fpet-gti-ltkbbcj medicine. For mild or occasional indigestion, antacids, such as Tums, Gaviscon, Mylanta, or Maalox, may help. Your doctor also may recommend abbe-yvd-gcclgsb acid reducers, such as Pepcid AC, Tagamet [...] Log into your personal health record on https://[employer] and enter T927 in the Education box to learn more about Gastroesophageal Reflux Disease (GERD): Care Instructions. Current as of: February 20, 2018 Content Version: 10.05-2018 [employer]. Care instructions adapted under license by your healthcare professional. If you have questions about a medical condition or this instruction, always ask your healthcare professional. [employer] disclaims any warranty or liability for your [...] you are older than 45 and are -[place] or have a father or brother who got prostatecancer when he was younger than 65. When should you call for help? Watch closely for changes in your health, and be sure to contact your doctor if you have any problems or symptoms that concern you. Where can you learn more? Log into your personal health record on https://[employer] and enter P072 in the Education box to learn more about Well Visit, Ages 18 to 50: Care Instructions. Current as of: February 21, 2018 Content Version: 11.9 3854-6218 [employer]. Care instructions adapted under license by your healthcare professional. If you have questions about a medical condition or this instruction, always ask your healthcare professional. [employer] disclaims any warranty or liability for your [...] loss type Yenny Benson AuD [address] [place] [address] Kelton Miller MD [address] [place] [address] Status Reason Specialty Diagnoses / Procedures Referred By Contact Referred To Contact Closed Specialty Services Required/Patie nt's Best Interest Audiology / Otolaryngology Diagnoses Hearing loss of left ear, unspecified hearing loss type Lacy Arellano CNP [address] [place] [address] Brianne Davey AuD [address] [facility] [place] [address] Reason Comments Hearing Loss BAHA Consult-Last se [...] pain Procedures ECG 12 Lead Leslie Sanabria, [employer]GETABLE [employer] WORK[employer] [address] [place] [address] [place] [address] Referral ID Status Reason Start Date Expiration Date Visits Re quested Visits Authorized [id number] Closed 10/27/2023 10/26/2024 1 1 Assessment & [...] and allow cool down until at least detention back to the pre exercise hear rate. [...] DATE CREATED AUTHOR AUTHOR'S ORGANIZ ATION 01/12/2022 [facility] DATE CREATED AUTHOR AUTHOR'S ORGANIZ ATION 11/06/2023 [facility] Care Teams (unrecognized sec tion and content) Cableway Operator Relationship Specialty Start Date End Date No, Physician [facility] PCP - General 11/17/21 Rosario Montoya MD [address] [address] Referring Physician Obstetrics/Gynecology 10/17/17 Cableway Operator Relationship Specialty Start Date End Date No, Physician [facility] PCP - General 11/17/21 Rosario Montoya MD [address] [id number] Referring Physician Obstetrics/Gynecology 10/17/17 Cableway Operator Relationship Specialty Start Date End Date No, Physician [facility] PCP - General 11/17/21 Rosario Montoya MD [address] [address] Referring Physician Obstetrics/Gynecology 10/17/17 Cableway Operator Relationship Specialty Start Date End Date Khang Morrison MD PCP - General Family Medicine 06/14/16 12/29/19 Khang Morrison MD [address] [address] PCP - General Family Medicine 12/30/19 01/14/20 Brianne Bynum MD [address] [address] PCP - General Family Medicine 01/15/20 01/26/20 Leslie Sanabria CNP [address] [place] [address] PCP - General Nurse Practitioner 09/18/20 03/08/21 hGazal Dickson CNP [address] [place] [address] PCP - General Family Medicine 03/09/21 11/02/21 No, Physician [facility] PCP - General 11/17/21 Rosario Montoya MD [address] [address]281 Referring Physician Obstetrics/Gynecology 10/17/17 Cableway Operator Relationship Specialty Start Date End Date Leslie Sanabria CNP [address] [place] [address] PCP - General Nurse Practitioner 02/03/23 Rosario Montoya MD [address] [place] [address] Referring Physician Obstetrics/Gynecology 10/17/17 FOR RECORDS PERTAINING [...] BE BASED ON THE PRIMARY CLINICAL RECORDS. [facility] [employer] [facility] provides no warranty or guarantee of the accuracy or completeness of information in this document.
== END | disposition home or self-care (01) ==
LOC: MTRAD 15:30
PROVIDERS: Referring Provider Psychiatry & Neurology Neurology; Visit Provider Psychiatry & Neurology Neurology
DX: M54.2 Cervicalgia (principal)
CPT/HCPCS: 72040